=== PATIENT | male | born 1945 | race Caucasian/White ===

== ENCOUNTER 2018-02-15 19:36 | Inpatient (IN) | payer MEDICARE, BC ==
[2018-02-15] MEDS ORDERED: Sodium Chloride 0.9% 1,000 ML IV ONE (20:12)
[2018-02-15] MEDS ORDERED: Sodium Chloride 0.9% 10 ML Syringe FLUSH PRN (20:12)
[2018-02-15] MEDS ORDERED: HYDROmorphone 0.5 MG/0.5 ML SYRINGE IVPUSH ONE ×3 (20:15→23:51)
[2018-02-15] MEDS ORDERED: Ondansetron 4 MG/2 ML SDV IVPUSH ONE (20:15)
--- NOTE | 2018-02-15 20:28 | EDM.PDOC ---
ED HPI GENERAL MEDICAL PROBLEM - General Chief Complaint: Genitourinary Problem Stated Complaint: BLOOD IN URINE Time Seen by Provider: 02/15/18 20:01 Source of Information: Reports: Patient History Limitations: Reports: No Limitations - History of Present Illness INITIAL COMMENTS - FREE TEXT/NARRATIVE: 72-year-old male presents for evaluation and treatment of gross hematuria. Reportedly the patient has had a suprapubic catheter for the last 35 years. This was recently removed due to chronic infections. (Patient has had 7 infections with Pseudomonas infections.) Removal occurred about 2 months ago. For last 2 months he has had a regular Donovan catheter in place. Today they remove the Donovan catheter and began to attempt to start self cathetering. States that they remove this morning. He did not have much urine output this morning with the self cathetering. They only got a small amount urine. They attempted later in the afternoon and could still not give much urine. He had been drinking plenty of fluids. By this time he was started feel pressure in the suprapubic area. His is an RN and placed a regular Donovan catheter. This occurred around 1529. Since then he has had 2 full leg bags, over 2000 male , of gross hematuria. Many clots present. He states the pressure is since been relieved since they replaced the catheter but he now is experiencing suprapubic pain. Reports associated symptoms of chills and weakness. No fevers, vomiting or back pain. Reports nausea but his states that he frequently gets nauseous and he has prescriptions for Zofran and Phenergan. Primary care provider here [place] is Wandy Vásquez. Patient has been Dr. Diaz in [facility]. They returned from [place] only Thursday. He plans to establish with a local urologist. Abdomen Pain Score (Numeric/FACES): 6 - Related Data Allergies Allergy/AdvReac Type Severity Reaction Status Date / Time latex Allergy Rash Verified 02/15/18 19:48 povidone-iodine Allergy Rash Verified 02/15/18 19:48 [From Betadine] soap [From Betadine] Allergy Rash Verified 02/15/18 19:48 Home Meds: Home Meds Calcium Carb & Citrate/Vit D3 [Calcium + D3 ER Tablet] 1 each PO DAILY 02/17/14 [History] Losartan [Cozaar] 25 mg PO DAILY 06/13/14 [History] Multivitamin [Multi-Vitamin Daily] 1 each PO DAILY 02/17/14 [History] traZODone 75 mg PO BEDTIME 02/17/14 [History] Bisacodyl 10 mg PO DAILY PRN 01/29/16 [History] Cholecalciferol (Vitamin D3) [Vitamin D3] 2,000 unit PO DAILY 01/29/16 [History] Clotrimazole [Lotrimin AF 1% Crm] 1 applic TP BID 01/29/16 [History] Docusate Sodium [Stool Softener] 200 mg PO BID PRN 01/29/16 [History] Furosemide [Lasix] 20 mg PO DAILY 01/29/16 [History] Levothyroxine 112 mcg PO ACBREAKFAST 01/29/16 [History] Menthol/Camphor [Sarna Anti-Itch Lotion] 1 applic TP ASDIRECTED PRN 01/29/16 [ History] Potassium Chloride 10 meq PO DAILY 01/29/16 [History] Sennosides/Docusate Sodium [Senna-Docusate Sodium] 1 each PO BID 01/29/16 [ History] Simethicone [Gas-X] 80 mg PO QID PRN 01/29/16 [History] amLODIPine [Norvasc] 10 mg PO DAILY 01/29/16 [History] atorvaSTATin [Lipitor] 20 mg PO BEDTIME 01/29/16 [History] traMADol [Ultram] 50 mg PO Q4H PRN 01/29/16 [History] Acetaminophen/HYDROcodone [Mcclure 325-5 MG] 1 tab PO Q4H PRN #20 tablet 02/02/16 [Rx] Ferrous Gluconate 325 mg PO TID #90 tablet 02/02/16 [Rx] Magnesium Citrate [Citrate of Magnesia] 200 ml PO ONETIME PRN #10 bottle [Rx] Ascorbate Calcium [Vitamin C] 500 mg PO DAILY 02/15/18 [History] Cyclobenzaprine [Flexeril] 20 mg PO BEDTIME 02/15/18 [History] D [place] 02/15/18 [History] Hydrocodone/Acetaminophen [Hydrocodon-Acetaminophen 5-325] 2 tab PO Q4HR PRN 07/25 [History] Pantoprazole [ProTONIX] 40 mg PO BID 02/15/18 [History] Sucralfate [Carafate] 1 gm PO TID 02/15/18 [History] Past Medical History Cardiovascular History: Reports: Hypertension Other Cardiovascular History: HTN Gastrointestinal History: Reports: Chronic Constipation, Fecal Incontinence Genitourinary History: Reports: UTI, Recurrent, Other (See Below) Other Genitourinary History: pseudamonas infections Musculoskeletal History: Reports: Amputation Neurological History: Reports: Other (See Below) Other Neuro History: Paraplegia Hematologic History: Reports: Anemia Dermatologic History: Reports: Decubitus Ulcer - Infectious Disease History Infectious Disease History: Reports: MRSA - Past Surgical History Male Surgical History: Reports: Suprapubic Catheter Placement Neurological Surgical History: Reports: Spinal Fusion Musculoskeletal Surgical History: Reports: Shoulder Replacement Dermatological Surgical History: Reports: Other (See Below) Social & Family History - Family History Family Medical History: Noncontributory - Tobacco Use Smoking Status *Q: Never Smoker - Caffeine Use Caffeine Use: Reports: Coffee - Recreational Drug Use Recreational Drug Use: No ED ROS GENERAL - Review of Systems Review Of Systems: See Below Constitutional: Reports: Malaise, Weakness. Denies: Fever, Chills GI/Abdominal: Reports: Nausea (chronic). Denies: Vomiting : Reports: Dysuria, Hematuria Musculoskeletal: Denies: Back Pain ED EXAM, RENAL/ - Physical Exam Exam: See Below Exam Limited By: No Limitations General Appearance: Alert, WD/WN, No Apparent Distress Respiratory/Chest: No Respiratory Distress, Lungs Clear, Normal Breath Sounds Cardiovascular: Normal Peripheral Pulses, Regular Rate, Rhythm, No Murmur GI/Abdominal: Soft, Non-Tender, Other (hypoactive bowel sounds) (Male) Exam: Other (donovan cathater in place with bag full of bright red blood with multiple clots) Neurological: Alert, Oriented, Normal Cognition Psychiatric: Normal Affect, Normal Mood Skin Exam: Warm, Dry, Normal Color Course - Vital Signs Last Recorded V/S: Last Vital Signs Temp 98.6 F 02/15/18 19:41 Pulse 103 H 02/15/18 19:41 Resp 18 02/15/18 19:41 BP 148/87 H 02/15/18 19:41 Pulse Ox 95 02/15/18 19:41 - Orders/Labs/Meds Orders: Active Orders 24 hr Category Date Time Status Patient Status [ADT] Routine ADT 02/15/18 23:38 Active Bladder Irrigation [RC] ASDIRECTED Care 02/15/18 20:16 Active Insert Donovan Catheter [Insert Urinary Catheter] [OM.PC] Care 02/15/18 23:00 Ordered Q24H Peripheral IV Care [RC] . DIRECTED Care 02/15/18 20:13 Active Urinary Catheter Assessment [RC] ASDIRECTED Care 02/15/18 22:58 Active CULTURE BLOOD [BC] Stat Lab 02/15/18 20:30 Received CULTURE BLOOD [BC] Stat Lab 02/15/18 20:40 Received CULTURE URINE [RM] Stat Lab 02/15/18 21:00 Ordered UA W/MICROSCOPIC [URIN] Stat Lab 02/15/18 21:00 Ordered Simethicone Med 02/15/18 22:00 Active 80 mg PO QIDACANDBED Sodium Chloride 0.9% [Saline Flush] Med 02/15/18 20:12 Active 10 ml FLUSH ASDIRECTED PRN Blood Culture x2 Reflex Set [OM.PC] Stat Oth 02/15/18 20:12 Ordered Peripheral IV Insertion Adult [OM.PC] Routine Oth 02/15/18 20:12 Ordered Medication Orders Simethicone (Simethicone) 80 mg PO QIDACANDBED MADAN Last Admin: 02/15/18 21:55 Dose: 80 mg Sodium Chloride (Saline Flush) 10 ml FLUSH ASDIRECTED PRN PRN Reason: Keep Vein Open Last Admin: 02/15/18 21:06 Dose: 10 ml Labs: Laboratory Tests 02/15/18 02/15/18 02/15/18 Range/Units 20:30 20:30 20:30 WBC 12.41 H (4.23-9.07) K/mm3 RBC 4.17 L (4.63-6.08) M/mm3 Hgb 10.1 L (13.7-17.5) gm/L Hct 31.9 L (40.1-51.0) % MCV 76.5 L (79.0-92.2) fl MCH 24.2 L (25.7-32.2) pg MCHC 31.7 L (32.2-35.5) g/dl RDW Std Deviation 57.0 H (35.1-43.9) fL Plt Count 764 H (163-337) K/mm3 MPV 8.5 L (9.4-12.3) fl Neutrophils % (Manual) 73 H (40-60) % Band Neutrophils % 0 (0-10) % Lymphocytes % (Manual) 20 (20-40) % Atypical Lymphs % 0 % Monocytes % (Manual) 5 (2-10) % Eosinophils % (Manual) 1 (0.8-7.0) % Basophils % (Manual) 1 (0.2-1.2) Platelet Estimate Increased Plt Morphology Comment Normal Hypochromasia 1+ slight Poikilocytosis 4+ Microcytosis 1+ slight Target Cells 1+ slight [place] Cells 1+ slight Acanthocytes (Spur) 1+ slight RBC Morph Comment Not Reportable Sodium 141 (136-145) mEq/L Potassium 4.0 (3.5-5.1) mEq/L Chloride 103 (98-107) mEq/L Carbon Dioxide 25 (21-32) mEq/L Anion Gap 17.0 H (5-15) BUN 16 (7-18) mg/dL Creatinine 1.2 (0.7-1.3) mg/dL Est Cr Clr Drug Dosing 48.54 mL/min Estimated GFR (MDRD) 60 (>60) mL/min BUN/Creatinine Ratio 13.3 L (14-18) Glucose 108 (83-115) mg/dL Lactic Acid 1.0 (0.4-2.0) mmol/L Calcium 9.6 (8.5-10.1) mg/dL Total Bilirubin 0.3 (0.2-1.0) mg/dL AST 18 (15-37) U/L ALT 27 (16-63) U/L Alkaline Phosphatase 109 (46-116) U/L C-Reactive Protein 4.4 H* (<1.0) mg/dL Total Protein 7.4 (6.4-8.2) g/dl Albumin 3.5 (3.4-5.0) g/dl Globulin 3.9 gm/dL Albumin/Globulin Ratio 0.9 L (1-2) Urine Color (Yellow) Urine Appearance (Clear) Urine pH (5.0-8.0) Ur Specific [place] (1.005-1.030) Urine Protein (Negative) Urine Glucose (UA) (Negative) Urine Ketones (Negative) Urine Occult Blood (Negative) Urine Nitrite (Negative) Urine Bilirubin (Negative) Urine Urobilinogen (0.2-1.0) Ur Leukocyte Esterase (Negative) Urine RBC (0-5) /hpf Urine WBC (0-5) /hpf Ur Epithelial Cells (0-5) /hpf Urine Bacteria (FEW) /hpf Urine Mucus (FEW) /hpf 02/15/18 Range/Units 21:00 WBC (4.23-9.07) K/mm3 RBC (4.63-6.08) M/mm3 Hgb (13.7-17.5) gm/L Hct (40.1-51.0) % MCV (79.0-92.2) fl MCH (25.7-32.2) pg MCHC (32.2-35.5) g/dl RDW Std Deviation (35.1-43.9) fL Plt Count (163-337) K/mm3 MPV (9.4-12.3) fl Neutrophils % (Manual) (40-60) % Band Neutrophils % (0-10) % Lymphocytes % (Manual) (20-40) % Atypical Lymphs % % Monocytes % (Manual) (2-10) % Eosinophils % (Manual) (0.8-7.0) % Basophils % (Manual) (0.2-1.2) Platelet Estimate Plt Morphology Comment Hypochromasia Poikilocytosis Microcytosis Target Cells [place] Cells Acanthocytes (Spur) RBC Morph Comment Sodium (136-145) mEq/L Potassium (3.5-5.1) mEq/L Chloride (98-107) mEq/L Carbon Dioxide (21-32) mEq/L Anion Gap (5-15) BUN (7-18) mg/dL Creatinine (0.7-1.3) mg/dL Est Cr Clr Drug Dosing mL/min Estimated GFR (MDRD) (>60) mL/min BUN/Creatinine Ratio (14-18) Glucose (83-115) mg/dL Lactic Acid (0.4-2.0) mmol/L Calcium (8.5-10.1) mg/dL Total Bilirubin (0.2-1.0) mg/dL AST (15-37) U/L ALT (16-63) U/L Alkaline Phosphatase (46-116) U/L C-Reactive Protein (<1.0) mg/dL Total Protein (6.4-8.2) g/dl Albumin (3.4-5.0) g/dl Globulin gm/dL Albumin/Globulin Ratio (1-2) Urine Color Red H (Yellow) Urine Appearance Cloudy H (Clear) Urine pH 8.5 H (5.0-8.0) Ur Specific [place] 1.025 (1.005-1.030) Urine Protein 3+ H (Negative) Urine Glucose (UA) Negative (Negative) Urine Ketones Trace H (Negative) Urine Occult Blood 3+ H (Negative) Urine Nitrite Positive H (Negative) Urine Bilirubin 2+ H (Negative) Urine Urobilinogen 1.0 (0.2-1.0) Ur Leukocyte Esterase Trace H (Negative) Urine RBC Too numerous to cnt H (0-5) /hpf Urine WBC 10-20 H (0-5) /hpf Ur Epithelial Cells 0-5 (0-5) /hpf Urine Bacteria Not seen (FEW) /hpf Urine Mucus Not seen (FEW) /hpf Meds: Medications Generic Name Dose Route Start Last Admin Trade Name Freq PRN Reason Stop Dose Admin Simethicone 80 mg 02/15/18 22:00 02/15/18 21:55 Simethicone PO 80 mg QIDACANDBED MADAN Administration Sodium Chloride 10 ml 02/15/18 20:12 02/15/18 21:06 Saline Flush FLUSH 10 ml ASDIRECTED PRN Administration Keep Vein Open Discontinued Medications Generic Name Dose Route Start Last Admin Trade Name Freq PRN Reason Stop Dose Admin Hydromorphone HCl 0.5 mg 02/15/18 20:15 02/15/18 21:06 Dilaudid IVPUSH 02/15/18 20:16 0.5 mg ONETIME ONE Administration Hydromorphone HCl 0.5 mg 02/15/18 21:40 02/15/18 21:55 Dilaudid IVPUSH 02/15/18 21:41 0.5 mg ONETIME ONE Administration Hydromorphone HCl 1 mg 02/15/18 23:51 Dilaudid IVPUSH 02/15/18 23:52 ONETIME ONE Sodium Chloride 1,000 mls @ 999 mls/hr 02/15/18 20:12 02/15/18 21:08 Normal Saline IV 02/15/18 21:12 999 mls/hr ONETIME ONE Administration Cefepime HCl 2 gm/ Premix 50 mls @ 100 mls/hr 02/15/18 22:22 02/15/18 22:38 IV 02/15/18 22:51 100 mls/hr ONETIME ONE Administration Ondansetron HCl 4 mg 02/15/18 20:15 02/15/18 21:06 Zofran IVPUSH 02/15/18 20:16 4 mg ONETIME ONE Administration Simethicone 80 mg 02/15/18 23:47 Simethicone PO 02/15/18 23:48 ONETIME ONE - Re-Assessments/Exams Free Text/Narrative Re-Assessment/Exam: 02/15/18 23:50 The patient's labs have been come back. His urine is positive for nitrites. Urine has been sent for culture. His white blood cell count is elevated at 12, CRP elevated at 4.4. Lactic acid is within normal limits at 1. Blood cultures have also been sent. Ordered cefepime 2 g IV. Per the patient's he has had resistance to Levaquin and has not done well on ciprofloxacin in the past. Nursing staff attempted to irrigate his bladder. Got about 200-250 mils in the bladder without any return. Patient did not tolerate this very well. The decision was then made to switch out his catheter so we could do continuous bladder irrigation. Initially nursing staff was able to get a large clot out around the catheter through his penis with slow return. Patient has only had bright red blood since coming to the ER. Discussed disposition with the patient and his . I do feel he needs to be admitted to the hospital. Due to concerns over not having urology here we initially talked to [facility] in [place]. I talked to Dr. Amador, urologist [employer]. She recommended imaging to ensure that the catheter was in place. She states as long as we have good return and she feels he can be managed here. She states if his urine does not clear and hemoglobin continues to drop we could transfer him at another time but at this point she did not feel that there is any further intervention that [facility] could offer. I discussed this with the patient and his . I discussed the case with Dr. Champion, hospitalist He agrees to the admission. Dr. Pope and I presented to the bedside with an ultrasound. Confirmed bladder placement with bedside ultrasound. Informed the patient and his that he'll be staying in [place]. They are in agreement and understanding. Departure - Departure Time of Disposition: 23:57 Disposition: Admitted As Inpatient 67 Condition: Fair Clinical Impression: UTI, Urinary tract infectious disease, Hematuria - Discharge Information Referrals: Alaina Vásquez NP [Primary Care Provider] - Forms: ED Department Discharge Additional Instructions: Patient to be admitted to med/surg with tele for UTI and hematuria; need for continuous bladder irrigation. - My Orders Last 24 Hours: My Active Orders 02/15/18 20:12 Sodium Chloride 0.9% [Saline Flush] 10 ml FLUSH ASDIRECTED PRN Blood Culture x2 Reflex Set [OM.PC] Stat Peripheral IV Insertion Adult [OM.PC] Routine 02/15/18 20:13 Peripheral IV Care [RC] . DIRECTED 02/15/18 20:16 Bladder Irrigation [RC] ASDIRECTED 02/15/18 20:30 CULTURE BLOOD [BC] Stat 02/15/18 20:40 CULTURE BLOOD [BC] Stat 02/15/18 21:00 CULTURE URINE [RM] Stat UA W/MICROSCOPIC [URIN] Stat 02/15/18 22:00 Simethicone 80 mg PO QIDACANDBED 02/15/18 22:58 Urinary Catheter Assessment [RC] ASDIRECTED 02/15/18 23:00 Insert Donovan Catheter [Insert Urinary Catheter] [OM.PC] Q24H 02/15/18 23:38 Patient Status [ADT] Routine - Assessment/Plan Last 24 Hours: My Active Orders 02/15/18 20:12 Sodium Chloride 0.9% [Saline Flush] 10 ml FLUSH ASDIRECTED PRN Blood Culture x2 Reflex Set [OM.PC] Stat Peripheral IV Insertion Adult [OM.PC] Routine 02/15/18 20:13 Peripheral IV Care [RC] . DIRECTED 02/15/18 20:16 Bladder Irrigation [RC] ASDIRECTED 02/15/18 20:30 CULTURE BLOOD [BC] Stat 02/15/18 20:40 CULTURE BLOOD [BC] Stat 02/15/18 21:00 CULTURE URINE [RM] Stat UA W/MICROSCOPIC [URIN] Stat 02/15/18 22:00 Simethicone 80 mg PO QIDACANDBED 02/15/18 22:58 Urinary Catheter Assessment [RC] ASDIRECTED 02/15/18 23:00 Insert Donovan Catheter [Insert Urinary Catheter] [OM.PC] Q24H 02/15/18 23:38 Patient Status [ADT] Routine
[2018-02-15] MEDS ORDERED: Simethicone 80 MG Tab.Chew PO SCH (22:00)
[2018-02-15] MEDS ORDERED: Cefepime 2 GM in Premix Bag 1 BAG IV ONE (22:22)
[2018-02-15] MEDS ORDERED: Simethicone 80 MG Tab.Chew PO ONE (23:47)
[2018-02-16] MEDS ORDERED: Simethicone 80 MG Tab.Chew PO PRN (00:43)
[2018-02-16] MEDS ORDERED: Docusate Sodium 100 MG Cap PO PRN (00:43)
[2018-02-16] MEDS ORDERED: Non-Formulary Medication 1 Each (Potassium Chloride [Potassium Chloride] 10 MEQ) PO PRN (00:43)
[2018-02-16] MEDS ORDERED: Acetaminophen/HYDROcodone 325-5 MG Tab PO PRN ×2 (00:43→00:47)
[2018-02-16] MEDS ORDERED: Furosemide 20 MG Tab PO PRN (00:43)
[2018-02-16] MEDS ORDERED: LORazepam 2 MG/ML SDV IVPUSH PRN (00:46)
[2018-02-16] MEDS ORDERED: Metoprolol Tartrate 5 MG/5 ML SDV IVPUSH PRN (00:46)
[2018-02-16] MEDS ORDERED: hydrALAZINE 20 MG/ML SDV IVPUSH PRN (00:46)
[2018-02-16] MEDS ORDERED: Ondansetron 4 MG/2 ML SDV IV PRN (00:47)
[2018-02-16] MEDS ORDERED: Bisacodyl 5 MG Tab PO PRN (00:47)
[2018-02-16] MEDS ORDERED: LORazepam 2 MG/ML SDV IV PRN (00:47)
[2018-02-16] MEDS ORDERED: Albuterol/Ipratropium 3.0-0.5 MG/3 ML Neb Soln NEB PRN (00:47)
[2018-02-16] MEDS ORDERED: Promethazine 12.5 MG in Sodium Chloride 0.9% 50 ML IV PRN (00:47)
[2018-02-16] MEDS ORDERED: Acetaminophen 325 MG Tab PO PRN (00:47)
[2018-02-16] MEDS ORDERED: Polyethylene Glycol 3350 Powder 17 GM Packet PO PRN (00:47)
[2018-02-16] MEDS ORDERED: Temazepam 7.5 MG Cap PO PRN (00:47)
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
[2018-02-16] MEDS ORDERED: Cyclobenzaprine 10 MG Tab PO SCH ×2 (02:00→21:00)
[2018-02-16] MEDS: HYDROmorphone 0.5 MG/0.5 ML SYRINGE IVPUSH PRN ×2 (03:08→05:00)
[2018-02-16] MEDS ORDERED: HYDROmorphone 0.5 MG/0.5 ML SYRINGE IVPUSH ONE (05:35)
[2018-02-16] MEDS ORDERED: fentaNYL 25 MCG/HR Transdermal Patch TRDERM SCH (05:45)
[2018-02-16] MEDS ORDERED: Trospium 20 MG Tab PO SCH (06:00)
[2018-02-16] MEDS ORDERED: Levothyroxine 112 MCG Tab PO SCH (06:00)
[2018-02-16] MEDS ORDERED: Pantoprazole 40 MG Tab.CR PO SCH (06:00)
--- NOTE | 2018-02-16 06:31 | PCM.SN ---
- Free Text/Narrative Note: I received a call from Leandra [facility] Night Charge Nurse, informing me that patient urine flow has completely stop flowing. She states, at about midnight his urine was really good but at 1:30 AM it started to slow down. At that time, only 50 ml of urine output was obtained. With the small amount of urine output, they then proceeded to change his donovan catheter to a similar size--22 dominican. The procedure yielded a fairly good amount of fluid return but mostly pure blood and some clots. According to her, the donovan insertion was easy and no resistance was experienced as it went through the prostate region. However at about 2:30 this morning, they were not able to get anything at all. During that time, the patient had become distended, felt full and complained of more pain. They thought the catheter may have clotted off again so they tried to replace it but this time they were unsuccessful even after the balloon was deflated or cut out. The staff also tried multiple procedural adjustments to the catheter but all efforts yielded nothing. As a result, I proceeded immediately to the hospital to see and examine the patient. When I got to him, he was so uncomfortable so I ordered narcotic pain medication right away to relieve his acute urinary retention from catheter obstruction. I reached out to the on-call surgeon Dr. Simon for input but he could not offer me anything. I then personally talked to Dr. Pope in ED and discussed the case with him but he was reluctant to perform suprapubic catheterization unless recommended by Urology. So, I went back to see the patient and re-examined him. I ordered additional narcotic medications: Fentanyl Patch and IV Dilaudid to further relieve his acute discomfort and suffering. Thereafter, I immediately made calls to [place] to get a hold of Dr. Amador who was initially consulted while he was seen in the emergency department. And after waiting for a good amount of time, the recovery coordinator was able to reach the specialist. Although I did not speak directly with her, she okayed the transfer and deferred transfer acceptance to the hospitalist team. But just like Dr. Amador, I did not directly speak with the accepting physician but he was made aware of the history of present illness of this patient. He did however agreed to accept transfer of care from sd. Patient was then shipped to [place]. He will be under the care of Dr. Royal, hospitalist attending. Prior to transfer, the patient and his were informed about going to [place] and both expressed no concerns or disagreements about the transfer plan.
[2018-02-16] MEDS ORDERED: Scopolamine 1.5 MG Transdermal Patch TRDERM ONE (06:39)
[2018-02-16] MEDS ORDERED: Sucralfate 1 GM Tab PO SCH (07:00)
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
[2018-02-16] MEDS ORDERED: Metoprolol Tartrate 5 MG/5 ML SDV IVPUSH ONE (07:09)
[2018-02-16 07:24] VITALS: BP 108/69
[2018-02-16] MEDS ORDERED: Magnesium Oxide 400 MG Tab PO ONE (08:30)
[2018-02-16] MEDS ORDERED: Ascorbic Acid 500 MG Tab PO SCH (09:00)
[2018-02-16] MEDS ORDERED: Levofloxacin/Dextrose 5%-Water 500 MG in Premix Bag 1 BAG IV SCH (09:00)
[2018-02-16] MEDS ORDERED: Losartan 25 MG Tab PO SCH (09:00)
[2018-02-16] MEDS ORDERED: Saccharomyces Boulardii (Probiotic) 250 MG Cap PO SCH (09:00)
[2018-02-16] MEDS ORDERED: Multivitamins,Therapeutic Tab PO SCH (09:00)
[2018-02-16] MEDS ORDERED: Cholecalciferol (Vitamin D3) 1,000 Unit Tab PO SCH (09:00)
[2018-02-16] MEDS ORDERED: Simvastatin 20 MG Tab PO SCH (09:00)
[2018-02-16] MEDS ORDERED: Tamsulosin 0.4 MG Cap.ER PO SCH (09:00)
[2018-02-19] MEDS ORDERED: [UNRECOGNIZED DRUG - REMARK] TRDERM ONE (06:45)
== END 2018-02-16 07:15 | DRG 699 ==
LOC: JD.ED 19:36 → JD.MS 23:55
PROVIDERS: ADMIT Internal Medicine; ATTEND Internal Medicine
DX: T83.098A Other mechanical complication of other urinary catheter, initial encounter (principal); R31.0 Gross hematuria; G82.20 Paraplegia, unspecified; Y84.6 Urinary catheterization as the cause of abnormal reaction of the patient, or of later complication, without mention of misadventure at the time of the procedure; V89.2XXS Person injured in unspecified motor-vehicle accident, traffic, sequela; R33.9 Retention of urine, unspecified; I10 Essential (primary) hypertension; E78.5 Hyperlipidemia, unspecified; E03.9 Hypothyroidism, unspecified; K59.09 Other constipation; D64.9 Anemia, unspecified; N31.9 Neuromuscular dysfunction of bladder, unspecified; N39.498 Other specified urinary incontinence; Z87.440 Personal history of urinary (tract) infections; Z91.040 Latex allergy status; Z79.899 Other long term (current) drug therapy; Z86.14 Personal history of Methicillin resistant Staphylococcus aureus infection; Z98.1 Arthrodesis status; Z87.11 Personal history of peptic ulcer disease
CPT/HCPCS: 36415; 51700; 80053; 81001; 83605; 85007; 85027; 86140; 87040 ×2; 87086; 96361; 96365; 96375; 96376; 99284; A9270; J0692; J1170 ×2; J2405; J7040; J7050; 51703; 80048; 82306; 83735; 84439; 84443; 85025; 85610; J2060; J3490

== ENCOUNTER 2018-05-25 19:23 | Emergency (ER) | payer MEDICARE, BC ==
[2018-05-25 19:38] VITALS: BP 200/110
[2018-05-25] MEDS ORDERED: HYDROmorphone 1 MG/ML Syringe IM ONE (19:46)
[2018-05-25] MEDS ORDERED: Ondansetron 4 MG Tab.DIS PO ONE (19:47)
--- NOTE | 2018-05-25 20:02 | EDM.PDOC ---
ED HPI GENERAL MEDICAL PROBLEM - General Chief Complaint: Genitourinary Problem Stated Complaint: POSS UTI Time Seen by Provider: 05/25/18 19:39 Source of Information: Reports: Patient History Limitations: Reports: No Limitations - History of Present Illness INITIAL COMMENTS - FREE TEXT/NARRATIVE: The patient presents with a possible UTI. He has a suprapubic cath. He has had that for 35 years. He had it changed out 2 weeks ago. This evening he developed some burning in his bladder, chills, fever, nausea and a headache. These are all signs of a UTI for him. He has no chest pain or shortness of breath. Onset: Sudden Duration: Hour(s): Location: Reports: Other (Bladder) Quality: Reports: Burning Severity: Moderate Improves with: Reports: None Worsens with: Reports: None Associated Symptoms: Reports: Fever/Chills, Headaches, Nausea/Vomiting. Denies : Chest Pain, Shortness of Breath Lower Abdominal Pain Score (Numeric/FACES): 6 - Related Data Allergies Allergy/AdvReac Type Severity Reaction Status Date / Time latex Allergy Rash Verified 05/25/18 19:36 povidone-iodine Allergy Rash Verified 05/25/18 19:36 [From Betadine] soap [From Betadine] Allergy Rash Verified 05/25/18 19:36 Home Meds: Home Meds Losartan [Cozaar] 25 mg PO DAILY 02/17/14 [History] Multivitamin [Multi-Vitamin Daily] 2 each PO DAILY 02/17/14 [History] traZODone 200 mg PO BEDTIME 02/17/14 [History] Cholecalciferol (Vitamin D3) [Vitamin D3] 2,000 unit PO DAILY 01/29/16 [History] Docusate Sodium [Stool Softener] 200 mg PO BID PRN 01/29/16 [History] Furosemide [Lasix] 20 mg PO DAILY PRN 01/29/16 [History] Levothyroxine 112 mcg PO ACBREAKFAST 01/29/16 [History] Potassium Chloride 10 meq PO DAILY PRN 01/29/16 [History] Sennosides/Docusate Sodium [Senna-Docusate Sodium] 2 each PO BID PRN 01/29/16 [ History] Simethicone [Gas-X] 80 mg PO QID PRN 01/29/16 [History] atorvaSTATin [Lipitor] 20 mg PO DAILY 01/29/16 [History] Ascorbate Calcium [Vitamin C] 500 mg PO DAILY 02/15/18 [History] Cyclobenzaprine [Flexeril] 20 mg PO BEDTIME 02/15/18 [History] D [place] 02/15/18 [History] Hydrocodone/Acetaminophen [Hydrocodon-Acetaminophen 5-325] 2 tab PO Q4HR PRN 07/25 [History] Pantoprazole [ProTONIX] 40 mg PO BID 02/15/18 [History] Sucralfate [Carafate] 1 gm PO TID 02/15/18 [History] Ciprofloxacin HCl [Cipro] 500 mg PO BID #14 tablet 05/25/18 [Rx] HYDROmorphone [Dilaudid] 2 mg PO Q4H PRN #15 tab 05/25/18 [Rx] Past Medical History Cardiovascular History: Reports: Hypertension Other Cardiovascular History: HTN Gastrointestinal History: Reports: Chronic Constipation, Fecal Incontinence Genitourinary History: Reports: UTI, Recurrent, Other (See Below) Other Genitourinary History: pseudamonas infections Musculoskeletal History: Reports: Amputation Neurological History: Reports: Other (See Below) Other Neuro History: Paraplegia Hematologic History: Reports: Anemia Dermatologic History: Reports: Decubitus Ulcer Other Dermatologic History: healed decub to his coccyx, uses a mepilex for protection since the area is so erasto and the skin is thin. - Infectious Disease History Infectious Disease History: Reports: MRSA - Past Surgical History Male Surgical History: Reports: Suprapubic Catheter Placement Neurological Surgical History: Reports: Spinal Fusion Musculoskeletal Surgical History: Reports: Shoulder Replacement Dermatological Surgical History: Reports: Other (See Below) Social & Family History - Family History Family Medical History: Noncontributory - Tobacco Use Smoking Status *Q: Never Smoker - Caffeine Use Caffeine Use: Reports: Coffee - Recreational Drug Use Recreational Drug Use: No ED ROS GENERAL - Review of Systems Review Of Systems: See Below Constitutional: Reports: Fever, Chills HEENT: Reports: No Symptoms Respiratory: Reports: No Symptoms Cardiovascular: Reports: No Symptoms Endocrine: Reports: No Symptoms GI/Abdominal: Reports: Other (Bladder) : Reports: Other (bladder) ED EXAM, RENAL/ - Physical Exam Exam: See Below Exam Limited By: No Limitations General Appearance: Alert, No Apparent Distress Ears: Normal External Exam Nose: Normal Inspection Head: Atraumatic, Normocephalic Neck: Normal Inspection Respiratory/Chest: No Respiratory Distress, Lungs Clear, Normal Breath Sounds Cardiovascular: Regular Rate, Rhythm, No Edema, No Murmur GI/Abdominal: Soft, Non-Tender, No Organomegaly, No Mass Neurological: Alert Course - Vital Signs Last Recorded V/S: Last Vital Signs Temp 98.4 F 05/25/18 19:34 Pulse 74 05/25/18 19:34 Resp 18 05/25/18 19:34 BP 200/110 H 05/25/18 19:34 Pulse Ox 99 05/25/18 19:34 - Orders/Labs/Meds Orders: Active Orders 24 hr Category Date Time Status CULTURE URINE [RM] Stat Lab 05/25/18 20:24 Ordered Labs: Laboratory Tests 05/25/18 Range/Units 19:30 Urine Color Yellow (Yellow) Urine Appearance Slt cloudy H (Clear) Urine pH 7.5 (5.0-8.0) Ur Specific [place] 1.015 (1.005-1.030) Urine Protein Negative (Negative) Urine Glucose (UA) Negative (Negative) Urine Ketones Negative (Negative) Urine Occult Blood Trace-intact H (Negative) Urine Nitrite Negative (Negative) Urine Bilirubin Negative (Negative) Urine Urobilinogen 0.2 (0.2-1.0) Ur Leukocyte Esterase 2+ H (Negative) Urine RBC 0-5 (0-5) /hpf Urine WBC 50-75 H (0-5) /hpf Ur Epithelial Cells 20-30 H (0-5) /hpf Urine Bacteria Few (FEW) /hpf Urine Mucus Not seen (FEW) /hpf Meds: Medications Discontinued Medications Generic Name Dose Route Start Last Admin Trade Name Freq PRN Reason Stop Dose Admin Hydromorphone HCl 1 mg 05/25/18 19:46 05/25/18 20:00 Dilaudid IM 05/25/18 19:47 1 mg ONETIME ONE Administration Ondansetron HCl 4 mg 05/25/18 19:47 05/25/18 20:00 Zofran Odt PO 05/25/18 19:48 4 mg ONETIME ONE Administration - Re-Assessments/Exams Free Text/Narrative Re-Assessment/Exam: 05/25/18 20:02 I ordered a UA, zofran 4mg by mouth and dilaudid 1mg IM. 05/25/18 20:25 He feels better. His UA shows a UTI. His prior cultures were growing out pseudomonus at one time. It was susceptible to cipro. I will get him on that and some dilaudid for pain. I have also ordered a urine culture. Departure - Departure Time of Disposition: 20:30 Disposition: Home, Self-Care 01 Condition: Good Clinical Impression: UTI, Urinary tract infectious disease - Discharge Information *PRESCRIPTION DRUG MONITORING PROGRAM REVIEWED*: No *COPY OF PRESCRIPTION DRUG MONITORING REPORT IN PATIENT GAVI: No Prescriptions: Ciprofloxacin HCl [Cipro] 500 mg PO BID #14 tablet HYDROmorphone [Dilaudid] 2 mg PO Q4H PRN #15 tab PRN Reason: Pain Referrals: Alaina Vásquez [employer] DISTRIBUTION ENGINEER [Primary Care Provider] - Forms: ED Department Discharge Additional Instructions: Take the cipro 2 times per day for 7 days. Take the dilaudid 1 pill every 4 hours as needed for pain. Drink plenty of water. Please return if you are worse. - My Orders Last 24 Hours: My Active Orders 05/25/18 20:24 CULTURE URINE [RM] Stat - Assessment/Plan Last 24 Hours: My Active Orders 05/25/18 20:24 CULTURE URINE [RM] Stat
== END 2018-05-25 20:36 | disposition home or self-care (01) ==
LOC: JD.ED 19:23
DX: N39.0 Urinary tract infection, site not specified (principal); I10 Essential (primary) hypertension; Z91.040 Latex allergy status; Z79.899 Other long term (current) drug therapy
CPT/HCPCS: 81001; 87086; 96372; 99283; A9270; J1170; 87088; 87186

== ENCOUNTER 2018-08-21 21:24 | Emergency (ER) | payer MEDICARE, BC ==
[2018-08-21] MEDS ORDERED: Ondansetron 4 MG Tab.DIS PO ONE (21:38)
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
[2018-08-21 23:56] VITALS: BP 170/89
== END 2018-08-21 23:45 | disposition home or self-care (01) ==
LOC: JD.ED 21:24
DX: T83.010A Breakdown (mechanical) of cystostomy catheter, initial encounter (principal); E78.00 Pure hypercholesterolemia, unspecified; I10 Essential (primary) hypertension; Z79.899 Other long term (current) drug therapy; E03.9 Hypothyroidism, unspecified; Z91.040 Latex allergy status; Z88.8 Allergy status to other drugs, medicaments and biological substances
CPT/HCPCS: 51702; 99284; A9270; 99283

== ENCOUNTER 2019-06-06 19:47 | Inpatient (IN) | payer MEDICARE, BC ==
[2019-06-06] MEDS ORDERED: Metoclopramide 10 MG/2 ML SDV IVPUSH ONE (20:06)
[2019-06-06] MEDS ORDERED: Acetaminophen 325 MG Tab PO STA (20:09)
[2019-06-06] MEDS ORDERED: Meropenem 1 GM SDV IVPUSH ONE (20:10)
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
[2019-06-06] MEDS ORDERED: Dextrose 5%-0.9% NaCl 1,000 ML IV SCH (20:15)
[2019-06-06] MEDS ORDERED: HYDROmorphone 1 MG/ML Syringe IVPUSH ONE (20:26)
[2019-06-06] MEDS ORDERED: HYDROmorphone 0.5 MG/0.5 ML Syringe IVPUSH ONE (21:53)
[2019-06-06] MEDS ORDERED: Magnesium Sulfate/Water 2 GM in Premix Bag 1 BAG IV ONE (21:53)
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
[2019-06-06] MEDS ORDERED: Melatonin 3 MG Tab PO PRN (23:11)
[2019-06-07] MEDS: oxyCODONE 5 MG Tab PO PRN ×5 (01:00→21:11)
[2019-06-07] MEDS: Acetaminophen 325 MG Tab PO PRN ×3 (01:01→12:57)
[2019-06-07] MEDS: Dextrose 5%-0.9% NaCl 1,000 ML IV SCH ×2 (01:08→10:16)
[2019-06-07] MEDS: Cyclobenzaprine 10 MG Tab PO SCH ×2 (02:05→21:11)
[2019-06-07] MEDS: traZODone 50 MG Tab PO SCH ×2 (02:05→21:10)
[2019-06-07] MEDS: HYDROmorphone 0.5 MG/0.5 ML Syringe IVPUSH PRN ×3 (02:50→12:58)
[2019-06-07] MEDS ORDERED: Meropenem 1 GM SDV IVPUSH SCH (04:00)
[2019-06-07] MEDS ORDERED: Meropenem 1 GM in Sodium Chloride 0.9% 100 ML IV SCH (04:00)
[2019-06-07] MEDS ORDERED: Meropenem Premix 500 MG in Premix Bag 1 BAG IV SCH ×2 (05:00→05:30)
[2019-06-07] MEDS: Ondansetron 4 MG/2 ML SDV IV PRN (06:11)
--- NOTE | 2019-06-07 08:58 | CR ---
Chest: Portable view of the chest was obtained. Comparison: Prior chest x-ray of 06/26/16. Parenchymal density is seen within the left mid to lower lung. This appears stable from prior exam and is therefore felt to be incidental. Old left-sided rib fractures are noted. Right shoulder prosthesis is noted. Scoliosis fixation rods are also present. Heart size is slightly enlarged with left ventricular configuration. Left-sided infusion port is seen. Old deformity from healed left clavicle fracture is present. Tortuous thoracic aorta is noted. No acute parenchymal change is appreciated. Impression: 1. Multiple findings as noted above. Nothing acute is appreciated on portable chest x-ray. Diagnostic code #2
[2019-06-07] MEDS: Meropenem Premix 500 MG in Premix Bag 1 BAG IV SCH ×3 (10:11→23:46)
[2019-06-07] MEDS: Enoxaparin 40 MG/0.4 ML Syringe SUBCUT SCH (10:15)
[2019-06-07] MEDS ORDERED: Sucralfate 1 GM Tab PO PRN (11:19)
[2019-06-07] MEDS ORDERED: Ondansetron 4 MG Tab.DIS PO PRN (11:19)
[2019-06-07] MEDS: Levothyroxine 100 MCG Tab PO SCH (12:56)
[2019-06-07] MEDS: Phenazopyridine 95 MG Tab PO SCH ×2 (12:56→18:36)
[2019-06-07] MEDS: Pantoprazole 40 MG Tab.CR PO SCH (12:57)
[2019-06-07] MEDS: Losartan 25 MG Tab PO SCH (12:57)
[2019-06-07] MEDS ORDERED: HYDROmorphone 1 MG/ML Syringe IVPUSH PRN (13:03)
[2019-06-07] MEDS ORDERED: Dextrose 5%-0.9% NaCl 1,000 ML IV SCH (13:30)
--- NOTE | 2019-06-07 14:31 | PCM.PN ---
- General Info Date of Service: 06/07/19 Admission Dx/Problem (Free Text): Admission Diagnosis/Problem Admission Diagnosis/Problem Urosepsis Subjective Update: Patient continues to have significant pain radiating to his groin. Oxycodone 10 mg every 4 hours and Dilaudid 0.5 milligrams are not helping his pain. Functional Status: Denies: Pain Controlled - Review of Systems General: Reports: No Symptoms HEENT: Reports: No Symptoms Pulmonary: Reports: No Symptoms Cardiovascular: Reports: No Symptoms Gastrointestinal: Reports: Abdominal Pain Genitourinary: Reports: Pain Musculoskeletal: Reports: Leg Pain - Patient Data Vitals - Most Recent: Last Vital Signs Temp 97.2 F 06/07/19 06:09 Pulse 96 06/07/19 06:09 Resp 18 06/07/19 06:09 BP 138/67 06/07/19 12:57 Pulse Ox 98 06/07/19 06:09 Weight - Most Recent: 135 lb I&O - Last 24 Hours: Intake & Output 06/06/19 06/07/19 06/07/19 22:59 06:59 14:59 Intake Total 1711 0 Output Total 1500 Balance 211 0 Lab Results Last 24 Hours: Laboratory Results - last 24 hr 06/06/19 06/06/19 06/06/19 Range/Units 20:40 20:40 20:40 WBC 28.91 H (4.23-9.07) K/mm3 RBC 3.62 L (4.63-6.08) M/mm3 Hgb 9.2 L (13.7-17.5) gm/dl Hct 28.5 L (40.1-51.0) % MCV 78.7 L D (79.0-92.2) fl MCH 25.4 L (25.7-32.2) pg MCHC 32.3 (32.2-35.5) g/dl RDW Std Deviation 47.3 H (35.1-43.9) fL Plt Count 587 H D (163-337) K/mm3 MPV 8.7 L (9.4-12.3) fl Neut % (Auto) (34.0-67.9) % Lymph % (Auto) (21.8-53.1) % [place] % (Auto) (5.3-12.2) % Eos % (Auto) (0.8-7.0) Baso % (Auto) (0.1-1.2) % Neut # (Auto) (1.78-5.38) K/mm3 Lymph # (Auto) (1.32-3.57) K/mm3 [place] # (Auto) (0.30-0.82) K/mm3 Eos # (Auto) (0.04-0.54) K/mm3 Baso # (Auto) (0.01-0.08) K/mm3 Neutrophils % (Manual) 73 H (40-60) % Band Neutrophils % 1 (0-10) % Lymphocytes % (Manual) 15 L (20-40) % Atypical Lymphs % 0 % Monocytes % (Manual) 10 (2-10) % Eosinophils % (Manual) 1 (0.8-7.0) % Basophils % (Manual) 0 L (0.2-1.2) Manual Slide Review Platelet Estimate Increased Plt Morphology Comment See note Poikilocytosis 1+ slight Anisocytosis 1+ slight Microcytosis 1+ slight [place] Cells Few RBC Morph Comment Not Reportable ESR 12 (0-15) mm/hr Sodium 137 (136-145) mEq/L Potassium 3.9 (3.5-5.1) mEq/L Chloride 104 (98-107) mEq/L Carbon Dioxide 25 (21-32) mEq/L Anion Gap 11.9 (5-15) BUN 18 (7-18) mg/dL Creatinine 1.0 (0.7-1.3) mg/dL Est Cr Clr Drug Dosing 57.83 mL/min Estimated GFR (MDRD) > 60 (>60) mL/min BUN/Creatinine Ratio 18.0 (14-18) Glucose 114 (83-115) mg/dL Lactic Acid (0.4-2.0) mmol/L Calcium 9.2 (8.5-10.1) mg/dL Magnesium 1.6 L (1.8-2.4) mg/dl Total Bilirubin 0.3 (0.2-1.0) mg/dL AST 27 (15-37) U/L ALT 42 (16-63) U/L Alkaline Phosphatase 110 (46-116) U/L C-Reactive Protein 9.0 H* (<1.0) mg/dL NT-Pro-B Natriuret Pep (0-125) pg/mL Total Protein 6.8 (6.4-8.2) g/dl Albumin 3.5 (3.4-5.0) g/dl Globulin 3.3 gm/dL Albumin/Globulin Ratio 1.1 (1-2) Urine Color (Yellow) Urine Appearance (Clear) Urine pH (5.0-8.0) Ur Specific [place] (1.005-1.030) Urine Protein (Negative) Urine Glucose (UA) (Negative) Urine Ketones (Negative) Urine Occult Blood (Negative) Urine Nitrite (Negative) Urine Bilirubin (Negative) Urine Urobilinogen (0.2-1.0) Ur Leukocyte Esterase (Negative) Urine RBC (0-5) /hpf Urine WBC (0-5) /hpf Ur Epithelial Cells (0-5) /hpf Urine Bacteria (FEW) /hpf Urine Mucus (FEW) /hpf 06/06/19 06/06/19 06/06/19 Range/Units 20:40 20:40 20:55 WBC (4.23-9.07) K/mm3 RBC (4.63-6.08) M/mm3 Hgb (13.7-17.5) gm/dl Hct (40.1-51.0) % MCV (79.0-92.2) fl MCH (25.7-32.2) pg MCHC (32.2-35.5) g/dl RDW Std Deviation (35.1-43.9) fL Plt Count (163-337) K/mm3 MPV (9.4-12.3) fl Neut % (Auto) (34.0-67.9) % Lymph % (Auto) (21.8-53.1) % [place] % (Auto) (5.3-12.2) % Eos % (Auto) (0.8-7.0) Baso % (Auto) (0.1-1.2) % Neut # (Auto) (1.78-5.38) K/mm3 Lymph # (Auto) (1.32-3.57) K/mm3 [place] # (Auto) (0.30-0.82) K/mm3 Eos # (Auto) (0.04-0.54) K/mm3 Baso # (Auto) (0.01-0.08) K/mm3 Neutrophils % (Manual) (40-60) % Band Neutrophils % (0-10) % Lymphocytes % (Manual) (20-40) % Atypical Lymphs % % Monocytes % (Manual) (2-10) % Eosinophils % (Manual) (0.8-7.0) % Basophils % (Manual) (0.2-1.2) Manual Slide Review Platelet Estimate Plt Morphology Comment Poikilocytosis Anisocytosis Microcytosis [place] Cells RBC Morph Comment ESR (0-15) mm/hr Sodium (136-145) mEq/L Potassium (3.5-5.1) mEq/L Chloride (98-107) mEq/L Carbon Dioxide (21-32) mEq/L Anion Gap (5-15) BUN (7-18) mg/dL Creatinine (0.7-1.3) mg/dL Est Cr Clr Drug Dosing mL/min Estimated GFR (MDRD) (>60) mL/min BUN/Creatinine Ratio (14-18) Glucose (83-115) mg/dL Lactic Acid 1.2 (0.4-2.0) mmol/L Calcium (8.5-10.1) mg/dL Magnesium (1.8-2.4) mg/dl Total Bilirubin (0.2-1.0) mg/dL AST (15-37) U/L ALT (16-63) U/L Alkaline Phosphatase (46-116) U/L C-Reactive Protein (<1.0) mg/dL NT-Pro-B Natriuret Pep 115 (0-125) pg/mL Total Protein (6.4-8.2) g/dl Albumin (3.4-5.0) g/dl Globulin gm/dL Albumin/Globulin Ratio (1-2) Urine Color Light yellow (Yellow) Urine Appearance Clear (Clear) Urine pH 7.5 (5.0-8.0) Ur Specific [place] 1.015 (1.005-1.030) Urine Protein Negative (Negative) Urine Glucose (UA) Negative (Negative) Urine Ketones Negative (Negative) Urine Occult Blood Negative (Negative) Urine Nitrite Negative (Negative) Urine Bilirubin Negative (Negative) Urine Urobilinogen 0.2 (0.2-1.0) Ur Leukocyte Esterase 2+ H (Negative) Urine RBC 0-5 (0-5) /hpf Urine WBC 20-30 H (0-5) /hpf Ur Epithelial Cells 0-5 (0-5) /hpf Urine Bacteria Few (FEW) /hpf Urine Mucus Not seen (FEW) /hpf 06/07/19 06/07/19 Range/Units 05:19 05:19 WBC 30.15 H (4.23-9.07) K/mm3 RBC 3.65 L (4.63-6.08) M/mm3 Hgb 9.1 L (13.7-17.5) gm/dl Hct 28.9 L (40.1-51.0) % MCV 79.2 (79.0-92.2) fl MCH 24.9 L (25.7-32.2) pg MCHC 31.5 L (32.2-35.5) g/dl RDW Std Deviation 47.7 H (35.1-43.9) fL Plt Count 543 H (163-337) K/mm3 MPV 8.9 L (9.4-12.3) fl Neut % (Auto) 81.2 H (34.0-67.9) % Lymph % (Auto) 9.8 L (21.8-53.1) % [place] % (Auto) 8.4 (5.3-12.2) % Eos % (Auto) 0.4 L (0.8-7.0) Baso % (Auto) 0.2 (0.1-1.2) % Neut # (Auto) 24.50 H (1.78-5.38) K/mm3 Lymph # (Auto) 2.95 (1.32-3.57) K/mm3 [place] # (Auto) 2.53 H (0.30-0.82) K/mm3 Eos # (Auto) 0.11 (0.04-0.54) K/mm3 Baso # (Auto) 0.06 (0.01-0.08) K/mm3 Neutrophils % (Manual) (40-60) % Band Neutrophils % (0-10) % Lymphocytes % (Manual) (20-40) % Atypical Lymphs % % Monocytes % (Manual) (2-10) % Eosinophils % (Manual) (0.8-7.0) % Basophils % (Manual) (0.2-1.2) Manual Slide Review Abnormal smear Platelet Estimate Plt Morphology Comment Poikilocytosis Anisocytosis Microcytosis [place] Cells RBC Morph Comment ESR (0-15) mm/hr Sodium 139 (136-145) mEq/L Potassium 4.0 (3.5-5.1) mEq/L Chloride 106 (98-107) mEq/L Carbon Dioxide 25 (21-32) mEq/L Anion Gap 12.0 (5-15) BUN 16 (7-18) mg/dL Creatinine 0.9 (0.7-1.3) mg/dL Est Cr Clr Drug Dosing 63.40 mL/min Estimated GFR (MDRD) > 60 (>60) mL/min BUN/Creatinine Ratio 17.8 (14-18) Glucose 103 (83-115) mg/dL Lactic Acid (0.4-2.0) mmol/L Calcium 8.8 (8.5-10.1) mg/dL Magnesium 2.2 (1.8-2.4) mg/dl Total Bilirubin 0.4 (0.2-1.0) mg/dL AST 32 (15-37) U/L ALT 43 (16-63) U/L Alkaline Phosphatase 107 (46-116) U/L C-Reactive Protein 15.8 H* (<1.0) mg/dL NT-Pro-B Natriuret Pep (0-125) pg/mL Total Protein 6.4 (6.4-8.2) g/dl Albumin 3.1 L (3.4-5.0) g/dl Globulin 3.3 gm/dL Albumin/Globulin Ratio 0.9 L (1-2) Urine Color (Yellow) Urine Appearance (Clear) Urine pH (5.0-8.0) Ur Specific [place] (1.005-1.030) Urine Protein (Negative) Urine Glucose (UA) (Negative) Urine Ketones (Negative) Urine Occult Blood (Negative) Urine Nitrite (Negative) Urine Bilirubin (Negative) Urine Urobilinogen (0.2-1.0) Ur Leukocyte Esterase (Negative) Urine RBC (0-5) /hpf Urine WBC (0-5) /hpf Ur Epithelial Cells (0-5) /hpf Urine Bacteria (FEW) /hpf Urine Mucus (FEW) /hpf Med Orders - Current: Current Medications Acetaminophen (Tylenol) 650 mg PO Q4H PRN PRN Reason: Pain (Mild 1-3)/fever Last Admin: 06/07/19 12:57 Dose: 650 mg Bisacodyl (Dulcolax) 10 mg PO DAILY PRN PRN Reason: Constipation Cyclobenzaprine HCl (Flexeril) 10 mg PO BEDTIME [facility] Last Admin: 06/07/19 02:05 Dose: 10 mg Enoxaparin Sodium (Lovenox) 40 mg SUBCUT DAILY [facility] Last Admin: 06/07/19 10:15 Dose: 40 mg Hydromorphone HCl (Dilaudid) 1 mg IVPUSH Q2H PRN PRN Reason: Pain (severe 7-10) Vancomycin HCl 1 gm/ Sodium (Chloride) 250 mls @ 250 mls/hr IV Q12H [facility] Last Admin: 06/07/19 12:56 Dose: 250 mls/hr Meropenem/Sodium Chloride 500 (mg/ Premix) 50 mls @ 100 mls/hr IV Q6H [facility] Last Admin: 06/07/19 10:11 Dose: 100 mls/hr Dextrose/Sodium Chloride (Dextrose 5%-Normal Saline) 1,000 mls @ 50 mls/hr IV ASDIRECTED [facility] Levothyroxine Sodium (Synthroid) 100 mcg PO ACBREAKFAST [facility] Last Admin: 06/07/19 12:56 Dose: 100 mcg Losartan Potassium (Cozaar) 50 mg PO DAILY [facility] Last Admin: 06/07/19 12:57 Dose: 50 mg Melatonin (Melatonin) 9 mg PO BEDTIME PRN PRN Reason: Insomnia Ondansetron HCl (Zofran) 4 mg IV Q4H PRN PRN Reason: Nausea/Vomiting Last Admin: 06/07/19 06:11 Dose: 4 mg Ondansetron HCl (Zofran Odt) 4 mg PO Q6H PRN PRN Reason: Nausea\vomiting Oxycodone HCl (Oxycodone) 10 mg PO Q4H PRN PRN Reason: Pain (severe 7-10) Last Admin: 06/07/19 10:15 Dose: 10 mg Pantoprazole Sodium (Protonix) 40 mg PO DAILY [facility] Last Admin: 06/07/19 12:57 Dose: 40 mg Phenazopyridine HCl (Urinary Pain Relief) 95 mg PO TIDPC [facility] Last Admin: 06/07/19 12:56 Dose: 95 mg Senna/Docusate Sodium (Senna Plus) 2 tab PO BEDTIME PRN PRN Reason: Constipation Simvastatin (Zocor) 20 mg PO BEDTIME [facility] Sucralfate (Carafate) 1 gm PO ASDIRECTED PRN PRN Reason: stomach pain Trazodone HCl (Trazodone) 100 mg PO BEDTIME [facility] Last Admin: 06/07/19 02:05 Dose: 100 mg Vancomycin HCl (Pharmacy To Dose - Vancomycin) 0 dose .XX ASDIRECTED PRN PRN Reason: RX TO DOSE VANCOMYCIN Discontinued Medications Acetaminophen (Tylenol) 975 mg PO NOW STA Stop: 06/06/19 20:10 Last Admin: 06/06/19 20:43 Dose: 975 mg Hydromorphone HCl (Dilaudid) 1 mg IVPUSH ONETIME ONE Stop: 06/06/19 20:27 Last Admin: 06/06/19 20:43 Dose: 1 mg Hydromorphone HCl (Dilaudid) 0.5 mg IVPUSH ONETIME ONE Stop: 06/06/19 21:54 Last Admin: 06/06/19 22:21 Dose: 0.5 mg Hydromorphone HCl (Dilaudid) 0.5 mg IVPUSH Q2H PRN PRN Reason: Pain (severe 7-10) Last Admin: 06/07/19 12:58 Dose: 0.5 mg Dextrose/Sodium Chloride (Dextrose 5%-Normal Saline) 1,000 mls @ 250 mls/hr IV ASDIRECTED [facility] Last Admin: 06/06/19 20:44 Dose: 250 mls/hr Magnesium Sulfate 2 gm/ Premix 50 mls @ 25 mls/hr IV ONETIME ONE Stop: 06/06/19 23:52 Last Admin: 06/06/19 22:22 Dose: 25 mls/hr Vancomycin HCl 1.25 gm/ Sodium (Chloride) 250 mls @ 250 mls/hr IV ONETIME ONE Stop: 06/07/19 00:59 Last Admin: 06/07/19 01:06 Dose: 250 mls/hr Dextrose/Sodium Chloride (Dextrose 5%-Normal Saline) 1,000 mls @ 125 mls/hr IV ASDIRECTED [facility] Last Admin: 06/07/19 10:16 Dose: 125 mls/hr Meropenem 1 gm/ Sodium (Chloride) 100 mls @ 200 mls/hr IV Q8H [facility] Last Admin: 06/07/19 07:41 Dose: Not Given Meropenem/Sodium Chloride 500 (mg/ Premix) 50 mls @ 100 mls/hr IV Q8H [facility] Last Admin: 06/07/19 05:46 Dose: 100 mls/hr Meropenem/Sodium Chloride 500 (mg/ Premix) 50 mls @ 100 mls/hr IV Q8H [facility] Last Admin: 06/07/19 05:47 Dose: 100 mls/hr Meropenem (Merrem) 1 gm IVPUSH ONETIME ONE Stop: 06/06/19 20:11 Last Admin: 06/06/19 20:41 Dose: 1 gm Meropenem (Merrem) 1 gm IVPUSH Q8H [facility] Metoclopramide HCl (Reglan) 10 mg IVPUSH ONETIME ONE Stop: 06/06/19 20:07 Last Admin: 06/06/19 20:41 Dose: 10 mg Oxycodone HCl (Oxycodone) 5 mg PO Q4H PRN PRN Reason: Pain (moderate 4-6) Last Admin: 06/07/19 06:09 Dose: 5 mg - Exam General: Alert, Oriented HEENT: Pupils Equal, Pupils Reactive, EOMI, Mucous Membr. Moist/[place] Neck: Supple Lungs: Clear to Auscultation, Normal Respiratory Effort Cardiovascular: Regular Rate, Regular Rhythm GI/Abdominal Exam: Normal Bowel Sounds, Soft, Non-Tender, No Organomegaly, No Distention, No Abnormal Bruit, No Mass Extremities: Normal Inspection Skin: Warm, Dry, Intact Psy/Mental Status: Alert, Normal Affect, Normal Mood - Problem List Review Problem List Initiated/Reviewed/Updated: Yes - My Orders Last 24 Hours: My Active Orders 06/06/19 23:08 Oxygen Therapy [RC] PRN VTE/DVT Education [RC] DAILY Vital Signs [RC] Q4HR Acetaminophen [Tylenol] 650 mg PO Q4H PRN Ondansetron [Zofran] 4 mg IV Q4H PRN Resuscitation Status Routine 06/06/19 23:11 Melatonin 9 mg PO BEDTIME PRN 06/06/19 23:15 Pharmacy to Dose - Vancomycin 0 dose .XX ASDIRECTED PRN 06/07/19 01:23 Cyclobenzaprine [Flexeril] 10 mg PO BEDTIME 10/01/19 01:24 traZODone 100 mg PO BEDTIME 06/07/19 09:00 Enoxaparin [Lovenox] 40 mg SUBCUT DAILY 06/07/19 09:54 oxyCODONE 10 mg PO Q4H PRN 06/07/19 11:00 Meropenem Premix [Meropenem] 500 mg Premix Bag 1 bag IV Q6H 06/07/19 11:19 Ondansetron [Zofran ODT] 4 mg PO Q6H PRN Sucralfate [Carafate] 1 gm PO ASDIRECTED PRN 06/07/19 11:30 Levothyroxine [Synthroid] 100 mcg PO ACBREAKFAST Losartan [Cozaar] 50 mg PO DAILY Pantoprazole [ProTONIX] 40 mg PO DAILY 06/07/19 12:00 Vancomycin 1 gm Sodium Chloride 0.9% [Normal Saline] 250 ml IV Q12H 06/07/19 12:37 PT Evaluation and Treatment [CONS] Routine 06/07/19 12:38 OT Evaluation and Treatment [CONS] Routine 06/07/19 12:46 Patient Status [ADT] Routine 06/07/19 13:00 Phenazopyridine [Urinary Pain Relief] 95 mg PO TIDPC 06/07/19 13:03 HYDROmorphone [Dilaudid] 1 mg IVPUSH Q2H PRN 06/07/19 13:30 Dextrose 5%-0.9% NaCl [Dextrose 5%-Normal Saline] 1,000 ml IV ASDIRECTED 06/07/19 21:00 Docusate Sodium/Sennosides [Senna Plus] 2 tab PO BEDTIME PRN Simvastatin [Zocor] 20 mg PO BEDTIME 06/07/19 Breakfast Regular Diet [DIET] 06/08/19 05:11 C-REACTIVE PROTEIN [CHEM] AM CBC WITH AUTO DIFF [HEME] AM COMPREHENSIVE METABOLIC PN,CMP [CHEM] AM MAGNESIUM [CHEM] AM 06/09/19 05:11 C-REACTIVE PROTEIN [CHEM] AM CBC WITH AUTO DIFF [HEME] AM COMPREHENSIVE METABOLIC PN,CMP [CHEM] AM MAGNESIUM [CHEM] AM 06/09/19 09:00 Bisacodyl [Dulcolax] 10 mg PO DAILY PRN 06/10/19 05:11 C-REACTIVE PROTEIN [CHEM] AM CBC WITH AUTO DIFF [HEME] AM COMPREHENSIVE METABOLIC PN,CMP [CHEM] AM MAGNESIUM [CHEM] AM - Plan Plan:: Assessment * 73-year-old patient with paraplegia at T12-L1 with history of multiple urinary tract infections and indwelling suprapubic catheter * Complicated UTI with indwelling suprapubic catheter * WBC 29-->30, CRP 9.0-->15.8, urine WBC 20-30 * Recently on Cefdinir for 10 days * History of hypertension, hyperlipidemia, hypothyroidism, insomnia, chronic pain Plan * Admit to the medical floor * Meropenem and vancomycin * Blood cultures done in ER * Urine cultures * Daily CBC, CMP, C-reactive protein, and magnesium * Pain management with both oral and IV narcotics. * Titrate IV fluids her by mouth intake. * Reconcile home meds * VTE prophylaxis with Lovenox * Code status: Full code * Length of stay likely 2-3 days.
[2019-06-07] MEDS ORDERED: Bisacodyl 5 MG Tab PO PRN (18:30)
[2019-06-07] MEDS: Simvastatin 20 MG Tab PO SCH (21:11)
[2019-06-08] MEDS: Acetaminophen 325 MG Tab PO PRN ×4 (01:17→21:01)
[2019-06-08] MEDS: oxyCODONE 5 MG Tab PO PRN ×4 (01:17→21:01)
[2019-06-08] MEDS: Levothyroxine 100 MCG Tab PO SCH (05:29)
[2019-06-08] MEDS: Meropenem Premix 500 MG in Premix Bag 1 BAG IV SCH ×4 (05:29→23:34)
[2019-06-08] MEDS: Losartan 25 MG Tab PO SCH (09:58)
[2019-06-08] MEDS: Pantoprazole 40 MG Tab.CR PO SCH (09:58)
[2019-06-08] MEDS: Enoxaparin 40 MG/0.4 ML Syringe SUBCUT SCH (09:58)
[2019-06-08] MEDS: Phenazopyridine 95 MG Tab PO SCH ×3 (09:58→18:19)
[2019-06-08] MEDS: Ondansetron 4 MG/2 ML SDV IV PRN (15:25)
--- NOTE | 2019-06-08 16:37 | PCM.PN ---
- Patient Data Vitals - Most Recent: Last Vital Signs Temp 37.2 C 06/08/19 15:32 Pulse 94 06/08/19 15:32 Resp 14 06/08/19 15:32 BP 158/85 H 06/08/19 15:32 Pulse Ox 97 06/08/19 15:32 Weight - Most Recent: 62.596 kg I&O - Last 24 Hours: Intake & Output 06/08/19 06/08/19 06/08/19 06:59 14:59 22:59 Intake Total 910 Output Total 2150 Balance -1240 Lab Results Last 24 Hours: Laboratory Results - last 24 hr 06/08/19 06/08/19 06/08/19 Range/Units 05:28 05:28 11:15 WBC 26.83 H (4.23-9.07) K/mm3 RBC 3.78 L (4.63-6.08) M/mm3 Hgb 9.5 L (13.7-17.5) gm/dl Hct 29.8 L (40.1-51.0) % MCV 78.8 L (79.0-92.2) fl MCH 25.1 L (25.7-32.2) pg MCHC 31.9 L (32.2-35.5) g/dl RDW Std Deviation 47.7 H (35.1-43.9) fL Plt Count 542 H (163-337) K/mm3 MPV 8.9 L (9.4-12.3) fl Neut % (Auto) 78.1 H (34.0-67.9) % Lymph % (Auto) 13.3 L (21.8-53.1) % [place] % (Auto) 7.4 (5.3-12.2) % Eos % (Auto) 0.9 (0.8-7.0) Baso % (Auto) 0.3 (0.1-1.2) % Neut # (Auto) 20.93 H (1.78-5.38) K/mm3 Lymph # (Auto) 3.58 H (1.32-3.57) K/mm3 [place] # (Auto) 1.99 H (0.30-0.82) K/mm3 Eos # (Auto) 0.25 (0.04-0.54) K/mm3 Baso # (Auto) 0.08 (0.01-0.08) K/mm3 Manual Slide Review Abnormal smear Sodium 137 (136-145) mEq/L Potassium 4.2 (3.5-5.1) mEq/L Chloride 104 (98-107) mEq/L Carbon Dioxide 23 (21-32) mEq/L Anion Gap 14.2 (5-15) BUN 11 (7-18) mg/dL Creatinine 0.8 (0.7-1.3) mg/dL Est Cr Clr Drug Dosing 73.90 mL/min Estimated GFR (MDRD) > 60 (>60) mL/min BUN/Creatinine Ratio 13.8 L (14-18) Glucose 89 (83-115) mg/dL Calcium 9.4 (8.5-10.1) mg/dL Magnesium 1.8 (1.8-2.4) mg/dl Total Bilirubin 0.4 (0.2-1.0) mg/dL AST 30 (15-37) U/L ALT 50 (16-63) U/L Alkaline Phosphatase 133 H (46-116) U/L C-Reactive Protein 23.4 H* (<1.0) mg/dL Total Protein 6.9 (6.4-8.2) g/dl Albumin 3.1 L (3.4-5.0) g/dl Globulin 3.8 gm/dL Albumin/Globulin Ratio 0.8 L (1-2) Vancomycin Trough 17.4 (10.0-20.0) [place] Results Last 24 Hours: Microbiology 06/06/19 20:55 Urine Culture - Preliminary Urine, [place] Cath ([place]) Gram Negative Rods Gram Negative Rods#2 Gram Positive Cocci 06/06/19 20:40 Aerobic Blood Culture - Preliminary Blood - Venous NO GROWTH AFTER 1 DAY Anaerobic Blood Culture - Preliminary NO GROWTH AFTER 1 DAY 06/06/19 20:35 Aerobic Blood Culture - Preliminary Blood - Venous - Lab Draw NO GROWTH AFTER 1 DAY Anaerobic Blood Culture - Preliminary NO GROWTH AFTER 1 DAY Med Orders - Current: Current Medications Acetaminophen (Tylenol) 650 mg PO Q4H PRN PRN Reason: Pain (Mild 1-3)/fever Last Admin: 06/08/19 15:27 Dose: 650 mg Bisacodyl (Dulcolax) 10 mg PO DAILY PRN PRN Reason: Constipation Last Admin: 06/08/19 05:30 Dose: 10 mg Cyclobenzaprine HCl (Flexeril) 10 mg PO BEDTIME [facility] Last Admin: 06/07/19 21:11 Dose: 10 mg Enoxaparin Sodium (Lovenox) 40 mg SUBCUT DAILY [facility] Last Admin: 06/08/19 09:58 Dose: 40 mg Hydromorphone HCl (Dilaudid) 1 mg IVPUSH Q2H PRN PRN Reason: Pain (severe 7-10) Last Admin: 06/07/19 18:36 Dose: 1 mg Vancomycin HCl 1 gm/ Sodium (Chloride) 250 mls @ 250 mls/hr IV Q12H [facility] Last Admin: 06/08/19 12:55 Dose: 250 mls/hr Meropenem/Sodium Chloride 500 (mg/ Premix) 50 mls @ 100 mls/hr IV Q6H [facility] Last Admin: 06/08/19 12:16 Dose: 100 mls/hr Levothyroxine Sodium (Synthroid) 100 mcg PO ACBREAKFAST [facility] Last Admin: 06/08/19 05:29 Dose: 100 mcg Losartan Potassium (Cozaar) 50 mg PO DAILY [facility] Last Admin: 06/08/19 09:58 Dose: 50 mg Melatonin (Melatonin) 9 mg PO BEDTIME PRN PRN Reason: Insomnia Ondansetron HCl (Zofran) 4 mg IV Q4H PRN PRN Reason: Nausea/Vomiting Last Admin: 06/08/19 15:25 Dose: 4 mg Ondansetron HCl (Zofran Odt) 4 mg PO Q6H PRN PRN Reason: Nausea\vomiting Oxycodone HCl (Oxycodone) 10 mg PO Q4H PRN PRN Reason: Pain (severe 7-10) Last Admin: 06/08/19 15:28 Dose: 10 mg Pantoprazole Sodium (Protonix) 40 mg PO DAILY [facility] Last Admin: 06/08/19 09:58 Dose: 40 mg Phenazopyridine HCl (Urinary Pain Relief) 95 mg PO TIDPC [facility] Last Admin: 06/08/19 12:16 Dose: 95 mg Senna/Docusate Sodium (Senna Plus) 2 tab PO BEDTIME PRN PRN Reason: Constipation Last Admin: 06/07/19 18:36 Dose: 2 tab Simvastatin (Zocor) 20 mg PO BEDTIME [facility] Last Admin: 06/07/19 21:11 Dose: 20 mg Sucralfate (Carafate) 1 gm PO ASDIRECTED PRN PRN Reason: stomach pain Trazodone HCl (Trazodone) 100 mg PO BEDTIME [facility] Last Admin: 06/07/19 21:10 Dose: 100 mg Vancomycin HCl (Pharmacy To Dose - Vancomycin) 0 dose .XX ASDIRECTED PRN PRN Reason: RX TO DOSE VANCOMYCIN Discontinued Medications Acetaminophen (Tylenol) 975 mg PO NOW STA Stop: 06/06/19 20:10 Last Admin: 06/06/19 20:43 Dose: 975 mg Hydromorphone HCl (Dilaudid) 1 mg IVPUSH ONETIME ONE Stop: 06/06/19 20:27 Last Admin: 06/06/19 20:43 Dose: 1 mg Hydromorphone HCl (Dilaudid) 0.5 mg IVPUSH ONETIME ONE Stop: 06/06/19 21:54 Last Admin: 06/06/19 22:21 Dose: 0.5 mg Hydromorphone HCl (Dilaudid) 0.5 mg IVPUSH Q2H PRN PRN Reason: Pain (severe 7-10) Last Admin: 06/07/19 12:58 Dose: 0.5 mg Dextrose/Sodium Chloride (Dextrose 5%-Normal Saline) 1,000 mls @ 250 mls/hr IV ASDIRECTTWO [facility] Last Admin: 06/06/19 20:44 Dose: 250 mls/hr Magnesium Sulfate 2 gm/ Premix 50 mls @ 25 mls/hr IV ONETIME ONE Stop: 06/06/19 23:52 Last Admin: 06/06/19 22:22 Dose: 25 mls/hr Vancomycin HCl 1.25 gm/ Sodium (Chloride) 250 mls @ 250 mls/hr IV ONETIME ONE Stop: 06/07/19 00:59 Last Admin: 06/07/19 01:06 Dose: 250 mls/hr Dextrose/Sodium Chloride (Dextrose 5%-Normal Saline) 1,000 mls @ 125 mls/hr IV ASDIRECTED [facility] Last Admin: 06/07/19 10:16 Dose: 125 mls/hr Meropenem 1 gm/ Sodium (Chloride) 100 mls @ 200 mls/hr IV Q8H [facility] Last Admin: 06/07/19 07:41 Dose: Not Given Meropenem/Sodium Chloride 500 (mg/ Premix) 50 mls @ 100 mls/hr IV Q8H [facility] Last Admin: 06/07/19 05:46 Dose: 100 mls/hr Meropenem/Sodium Chloride 500 (mg/ Premix) 50 mls @ 100 mls/hr IV Q8H [facility] Last Admin: 06/07/19 05:47 Dose: 100 mls/hr Dextrose/Sodium Chloride (Dextrose 5%-Normal Saline) 1,000 mls @ 50 mls/hr IV ASDIRECTED [facility] Meropenem (Merrem) 1 gm IVPUSH ONETIME ONE Stop: 06/06/19 20:11 Last Admin: 06/06/19 20:41 Dose: 1 gm Meropenem (Merrem) 1 gm IVPUSH Q8H [facility] Metoclopramide HCl (Reglan) 10 mg IVPUSH ONETIME ONE Stop: 06/06/19 20:07 Last Admin: 06/06/19 20:41 Dose: 10 mg Oxycodone HCl (Oxycodone) 5 mg PO Q4H PRN PRN Reason: Pain (moderate 4-6) Last Admin: 06/07/19 06:09 Dose: 5 mg - My Orders Last 24 Hours: My Active Orders 06/08/19 10:40 Urinary Catheter Assessment [RC] ASDIRECTED 06/08/19 10:45 Insert Lawrence Catheter [Insert Urinary Catheter] [OM.PC] ONETIME 06/08/19 13:30 CULTURE URINE [RM] Routine - Plan Plan:: Assessment * 73-year-old patient with paraplegia at T12-L1 with history of multiple urinary tract infections and indwelling suprapubic catheter * Complicated UTI with indwelling suprapubic catheter * WBC 29-->30, CRP 9.0-->15.8, urine WBC 20-30 * Recently on Cefdinir for 10 days * History of hypertension, hyperlipidemia, hypothyroidism, insomnia, chronic pain Plan * Admit to the medical floor * Meropenem and vancomycin * Blood cultures done in ER * Urine cultures * Daily CBC, CMP, C-reactive protein, and magnesium * Pain management with both oral and IV narcotics. * Titrate IV fluids her by mouth intake. * Reconcile home meds * VTE prophylaxis with Lovenox * Code status: Full code * Length of stay likely 2-3 days.
[2019-06-08] MEDS: Hydrocortisone 1% Crm 30 GM Tube TOP SCH ×2 (19:35→21:04)
[2019-06-08] MEDS ORDERED: Polyethylene Glycol 3350 Powder 17 GM Packet PO ONE (20:00)
[2019-06-08] MEDS: traZODone 50 MG Tab PO SCH (20:59)
[2019-06-08] MEDS: Simvastatin 20 MG Tab PO SCH (21:00)
[2019-06-08] MEDS: Cyclobenzaprine 10 MG Tab PO SCH (21:00)
[2019-06-08] MEDS ORDERED: diphenhydrAMINE 50 MG/ML SDV IVPUSH ONE (23:24)
[2019-06-09] MEDS: Meropenem Premix 500 MG in Premix Bag 1 BAG IV SCH ×4 (04:48→23:13)
[2019-06-09] MEDS: oxyCODONE 5 MG Tab PO PRN ×2 (04:48→18:23)
[2019-06-09] MEDS: Acetaminophen 325 MG Tab PO PRN (04:49)
[2019-06-09] MEDS: Levothyroxine 100 MCG Tab PO SCH (04:59)
[2019-06-09] MEDS ORDERED: diphenhydrAMINE 25 MG Cap PO ONE (09:00)
[2019-06-09] MEDS: Hydrocortisone 1% Crm 30 GM Tube TOP SCH (09:15)
[2019-06-09] MEDS: Pantoprazole 40 MG Tab.CR PO SCH (09:15)
[2019-06-09] MEDS: Losartan 25 MG Tab PO SCH (09:16)
[2019-06-09] MEDS: Phenazopyridine 95 MG Tab PO SCH ×3 (09:16→18:19)
[2019-06-09] MEDS: Enoxaparin 40 MG/0.4 ML Syringe SUBCUT SCH (09:16)
[2019-06-09] MEDS ORDERED: Magnesium Sulfate/Water 4 GM in Premix Bag 1 BAG IV ONE (13:00)
[2019-06-09] MEDS: Hydrocortisone 1% Crm 30 GM Tube TOP PRN ×2 (13:31→18:22)
[2019-06-09] MEDS ORDERED: diphenhydrAMINE 50 MG/ML SDV IVPUSH ONE (16:30)
[2019-06-09] MEDS: Famotidine 20 MG Tab PO SCH (16:32)
[2019-06-09] MEDS ORDERED: Magnesium Hydroxide 400 MG/5 ML Susp 30 ML Cup PO ONE (18:02)
[2019-06-09] MEDS: Ondansetron 4 MG/2 ML SDV IV PRN (20:53)
[2019-06-09] MEDS: traZODone 50 MG Tab PO SCH (20:54)
[2019-06-09] MEDS: Simvastatin 20 MG Tab PO SCH (20:54)
[2019-06-09] MEDS: Cyclobenzaprine 10 MG Tab PO SCH (20:55)
[2019-06-10] MEDS: oxyCODONE 5 MG Tab PO PRN (05:36)
[2019-06-10] MEDS: Famotidine 20 MG Tab PO SCH ×2 (05:36→16:33)
[2019-06-10] MEDS: Meropenem Premix 500 MG in Premix Bag 1 BAG IV SCH ×2 (05:36→12:57)
[2019-06-10] MEDS: Levothyroxine 100 MCG Tab PO SCH (05:36)
[2019-06-10] MEDS: Acetaminophen 325 MG Tab PO PRN (05:37)
[2019-06-10] MEDS: Losartan 25 MG Tab PO SCH (08:54)
[2019-06-10] MEDS: Pantoprazole 40 MG Tab.CR PO SCH (08:58)
[2019-06-10] MEDS: Phenazopyridine 95 MG Tab PO SCH ×2 (08:58→12:57)
[2019-06-10] MEDS: Enoxaparin 40 MG/0.4 ML Syringe SUBCUT SCH (08:59)
[2019-06-10 09:01] VITALS: BP 126/80
[2019-06-10] MEDS ORDERED: Magnesium Citrate Solution 296 ML Bottle PO ONE ×2 (10:25→12:00)
[2019-06-10 10:48] VITALS: PULSE 95
--- NOTE | 2019-06-10 12:16 | PCM.DCSUM1 ---
Discharge Summary - Discharge Data Discharge Disposition: Home, Self-Care 01 Condition: Good - Referral to Home Health Primary Care Physician: Alaina Vásquez NP - Patient Summary/Data Consults: Consultations 06/07/19 12:37 PT Evaluation and Treatment [CONS] Routine 06/07/19 12:38 OT Evaluation and Treatment [CONS] Routine - Patient Instructions Diet: Usual Diet as Tolerated - Discharge Plan *PRESCRIPTION DRUG MONITORING PROGRAM REVIEWED*: No *COPY OF PRESCRIPTION DRUG MONITORING REPORT IN PATIENT GAVI: No Prescriptions/Med Rec: Hydrocortisone [Hydrocortisone 1% Crm] 30 gm TOP Q4H PRN #4 tube PRN Reason: Itching Home Medications: Home Meds Cyclobenzaprine [Flexeril] 10 mg PO BEDTIME 03/08/19 [History] Levothyroxine [Synthroid] 100 mcg PO DAILY 03/08/19 [History] Losartan [Cozaar] 50 mg PO DAILY 03/08/19 [History] Pantoprazole [ProTONIX] 40 mg PO DAILY 03/08/19 [History] atorvaSTATin [Lipitor] 20 mg PO DAILY 03/08/19 [History] Acetaminophen [Tylenol] 650 mg PO Q4H PRN tablet 03/14/19 [Rx] Hydrocodone/Acetaminophen [Hydrocodon-Acetaminophen 5-325] 1 - 2 each PO Q6HR PRN #20 tablet 03/28/19 [Rx] Lactobacillus Combination No.4 [Probiotic] 1 tab PO DAILY 03/28/19 [History] Ondansetron [Zofran ODT] 4 mg PO Q6H PRN #20 tab.dis 03/28/19 [Rx] Bisacodyl [Dulcolax] 10 mg PO ASDIRECTED PRN 06/07/19 [History] Sennosides/Docusate Sodium [Senna Plus 8.6-50 mg Tablet] 2 tab PO ASDIRECTED PRN 06/07/19 [History] Sucralfate [Carafate] 1 gm PO ASDIRECTED PRN 06/07/19 [History] traZODone HCl [Trazodone HCl] 100 mg PO BEDTIME 06/07/19 [History] Hydrocortisone [Hydrocortisone 1% Crm] 30 gm TOP Q4H PRN #4 tube 06/10/19 [Rx] Forms: ED Department Discharge Referrals: Gold,Alaina, NO EXPERIENCE [Primary Care Provider] - (5-7 days) - Patient Data Vitals - Most Recent: Last Vital Signs Temp 36.8 C 06/10/19 08:58 Pulse 95 06/10/19 08:58 Resp 18 06/10/19 08:58 BP 126/80 06/10/19 08:58 Pulse Ox 92 L 06/10/19 08:58 Weight - Most Recent: 60.781 kg I&O - Last 24 hours: Intake & Output 06/09/19 06/10/19 06/10/19 22:59 06:59 14:59 Intake Total 950 550 300 Output Total 1400 1350 Balance -450 -800 300 Lab Results - Last 24 hrs: Laboratory Results - last 24 hr 06/10/19 06/10/19 Range/Units 05:29 05:29 WBC 7.67 (4.23-9.07) K/mm3 RBC 4.00 L (4.63-6.08) M/mm3 Hgb 9.7 L (13.7-17.5) gm/dl Hct 31.4 L (40.1-51.0) % MCV 78.5 L (79.0-92.2) fl MCH 24.3 L (25.7-32.2) pg MCHC 30.9 L (32.2-35.5) g/dl RDW Std Deviation 48.3 H (35.1-43.9) fL Plt Count 606 H (163-337) K/mm3 MPV 9.0 L (9.4-12.3) fl Neut % (Auto) 55.4 (34.0-67.9) % Lymph % (Auto) 26.3 (21.8-53.1) % Hitchcock % (Auto) 13.8 H (5.3-12.2) % Eos % (Auto) 3.8 (0.8-7.0) Baso % (Auto) 0.4 (0.1-1.2) % Neut # (Auto) 4.25 (1.78-5.38) K/mm3 Lymph # (Auto) 2.02 (1.32-3.57) K/mm3 Hitchcock # (Auto) 1.06 H (0.30-0.82) K/mm3 Eos # (Auto) 0.29 (0.04-0.54) K/mm3 Baso # (Auto) 0.03 (0.01-0.08) K/mm3 Manual Slide Review Abnormal smear Sodium 140 (136-145) mEq/L Potassium 4.0 (3.5-5.1) mEq/L Chloride 104 (98-107) mEq/L Carbon Dioxide 28 (21-32) mEq/L Anion Gap 12.0 (5-15) BUN 9 (7-18) mg/dL Creatinine 0.8 (0.7-1.3) mg/dL Est Cr Clr Drug Dosing 71.81 mL/min Estimated GFR (MDRD) > 60 (>60) mL/min BUN/Creatinine Ratio 11.3 L (14-18) Glucose 113 (83-115) mg/dL Calcium 8.9 (8.5-10.1) mg/dL Magnesium 2.3 (1.8-2.4) mg/dl Total Bilirubin 0.2 (0.2-1.0) mg/dL AST 24 (15-37) U/L ALT 40 (16-63) U/L Alkaline Phosphatase 145 H (46-116) U/L C-Reactive Protein 10.8 H* (<1.0) mg/dL Total Protein 6.9 (6.4-8.2) g/dl Albumin 3.0 L (3.4-5.0) g/dl Globulin 3.9 gm/dL Albumin/Globulin Ratio 0.8 L (1-2) ELISABET Results - Last 24 hrs: Microbiology 06/08/19 13:30 Urine Culture - Final Urine, Catheterized NO GROWTH AFTER 2 DAYS 06/06/19 20:40 Aerobic Blood Culture - Preliminary Blood - Venous NO GROWTH AFTER 3 DAYS Anaerobic Blood Culture - Preliminary NO GROWTH AFTER 3 DAYS 06/06/19 20:35 Aerobic Blood Culture - Preliminary Blood - Venous - Lab Draw NO GROWTH AFTER 3 DAYS Anaerobic Blood Culture - Preliminary NO GROWTH AFTER 3 DAYS 06/06/19 20:55 Urine Culture - Final Urine, Lawrence Cath (Indwelling) Citrobacter Farmeri Providencia Rettgeri Enterococcus Faecalis Med Orders - Current: Current Medications Acetaminophen (Tylenol) 650 mg PO Q4H PRN PRN Reason: Pain (Mild 1-3)/fever Last Admin: 06/10/19 05:37 Dose: 650 mg Bisacodyl (Dulcolax) 10 mg PO DAILY PRN PRN Reason: Constipation Last Admin: 06/08/19 05:30 Dose: 10 mg Cyclobenzaprine HCl (Flexeril) 10 mg PO BEDTIME [facility] Last Admin: 06/09/19 20:55 Dose: 10 mg Enoxaparin Sodium (Lovenox) 40 mg SUBCUT DAILY [facility] Last Admin: 06/10/19 08:59 Dose: 40 mg Famotidine (Pepcid) 20 mg PO Q12H [facility] Stop: 06/11/19 04:31 Last Admin: 06/10/19 05:36 Dose: 20 mg Hydrocortisone (Hydrocortisone 1% Crm) 30 gm TOP Q4H PRN PRN Reason: Itching Last Admin: 06/09/19 18:22 Dose: 1 applic Hydromorphone HCl (Dilaudid) 1 mg IVPUSH Q2H PRN PRN Reason: Pain (severe 7-10) Last Admin: 06/07/19 18:36 Dose: 1 mg Meropenem/Sodium Chloride 500 (mg/ Premix) 50 mls @ 100 mls/hr IV Q6H [facility] Last Admin: 06/10/19 05:36 Dose: 100 mls/hr Levothyroxine Sodium (Synthroid) 100 mcg PO ACBREAKFAST [facility] Last Admin: 06/10/19 05:36 Dose: 100 mcg Losartan Potassium (Cozaar) 50 mg PO DAILY [facility] Last Admin: 06/10/19 08:54 Dose: 50 mg Melatonin (Melatonin) 9 mg PO BEDTIME PRN PRN Reason: Insomnia Last Admin: 06/09/19 20:55 Dose: 9 mg Ondansetron HCl (Zofran) 4 mg IV Q4H PRN PRN Reason: Nausea/Vomiting Last Admin: 06/09/19 20:53 Dose: 4 mg Ondansetron HCl (Zofran Odt) 4 mg PO Q6H PRN PRN Reason: Nausea\vomiting Oxycodone HCl (Oxycodone) 10 mg PO Q4H PRN PRN Reason: Pain (severe 7-10) Last Admin: 06/10/19 05:36 Dose: 10 mg Pantoprazole Sodium (Protonix) 40 mg PO DAILY [facility] Last Admin: 06/10/19 08:58 Dose: 40 mg Phenazopyridine HCl (Urinary Pain Relief) 95 mg PO TIDPC [facility] Last Admin: 06/10/19 08:58 Dose: 95 mg Senna/Docusate Sodium (Senna Plus) 2 tab PO BEDTIME PRN PRN Reason: Constipation Last Admin: 06/07/19 18:36 Dose: 2 tab Simvastatin (Zocor) 20 mg PO BEDTIME [facility] Last Admin: 06/09/19 20:54 Dose: 20 mg Sucralfate (Carafate) 1 gm PO ASDIRECTED PRN PRN Reason: stomach pain Last Admin: 06/09/19 13:30 Dose: 1 gm Trazodone HCl (Trazodone) 100 mg PO BEDTIME [facility] Last Admin: 06/09/19 20:54 Dose: 100 mg Discontinued Medications Acetaminophen (Tylenol) 975 mg PO NOW STA Stop: 06/06/19 20:10 Last Admin: 06/06/19 20:43 Dose: 975 mg Diphenhydramine HCl (Benadryl) 25 mg IVPUSH ONETIME ONE Stop: 06/08/19 23:25 Last Admin: 06/08/19 23:35 Dose: 25 mg Diphenhydramine HCl (Benadryl) 25 mg PO ONETIME ONE Stop: 06/09/19 09:01 Last Admin: 06/09/19 09:15 Dose: 25 mg Diphenhydramine HCl (Benadryl) 25 mg IVPUSH ONETIME ONE Stop: 06/09/19 16:31 Last Admin: 06/09/19 16:32 Dose: 25 mg Hydrocortisone (Hydrocortisone 1% Crm) 30 gm TOP BID [facility] Last Admin: 06/09/19 09:15 Dose: 1 applic Hydromorphone HCl (Dilaudid) 1 mg IVPUSH ONETIME ONE Stop: 06/06/19 20:27 Last Admin: 06/06/19 20:43 Dose: 1 mg Hydromorphone HCl (Dilaudid) 0.5 mg IVPUSH ONETIME ONE Stop: 06/06/19 21:54 Last Admin: 06/06/19 22:21 Dose: 0.5 mg Hydromorphone HCl (Dilaudid) 0.5 mg IVPUSH Q2H PRN PRN Reason: Pain (severe 7-10) Last Admin: 06/07/19 12:58 Dose: 0.5 mg Dextrose/Sodium Chloride (Dextrose 5%-Normal Saline) 1,000 mls @ 250 mls/hr IV ASDIRECTED [facility] Last Admin: 06/06/19 20:44 Dose: 250 mls/hr Magnesium Sulfate 2 gm/ Premix 50 mls @ 25 mls/hr IV ONETIME ONE Stop: 06/06/19 23:52 Last Admin: 06/06/19 22:22 Dose: 25 mls/hr Vancomycin HCl 1.25 gm/ Sodium (Chloride) 250 mls @ 250 mls/hr IV ONETIME ONE Stop: 06/07/19 00:59 Last Admin: 06/07/19 01:06 Dose: 250 mls/hr Vancomycin HCl 1 gm/ Sodium (Chloride) 250 mls @ 250 mls/hr IV Q12H [facility] Last Admin: 06/08/19 23:34 Dose: 250 mls/hr Dextrose/Sodium Chloride (Dextrose 5%-Normal Saline) 1,000 mls [facility] 125 [facility] Last Admin: 06/07/19 10:16 Dose: 125 mls/hr Meropenem 1 gm/ Sodium (Chloride) 100 mls @ 200 mls/hr IV Q8H [facility] Last Admin: 06/07/19 07:41 Dose: Not Given Meropenem/Sodium Chloride 500 (mg/ Premix) 50 mls @ 100 mls/hr IV Q8H [facility] Last Admin: 06/07/19 05:46 Dose: 100 mls/hr Meropenem/Sodium Chloride 500 (mg/ Premix) 50 mls @ 100 mls/hr IV Q8H [facility] Last Admin: 06/07/19 05:47 Dose: 100 mls/hr Dextrose/Sodium Chloride (Dextrose 5%-Normal Saline) 1,000 mls @ 50 mls/hr IV ASDIRECTED [facility] Magnesium Sulfate 4 gm/ Premix 50 mls @ 12.5 mls/hr IV ONETIME ONE Stop: 06/09/19 16:59 Last Admin: 06/09/19 13:25 Dose: 12.5 mls/hr Magnesium Citrate (Citrate Of Magnesia) 296 ml PO ONETIME ONE Stop: 06/10/19 12:01 Magnesium Hydroxide (Milk Of Magnesia) 30 ml PO ONETIME ONE Stop: 06/09/19 18:03 Last Admin: 06/09/19 18:20 Dose: 30 ml Meropenem (Merrem) 1 gm IVPUSH ONETIME ONE Stop: 06/06/19 20:11 Last Admin: 06/06/19 20:41 Dose: 1 gm Meropenem (Merrem) 1 gm IVPUSH Q8H [facility] Metoclopramide HCl (Reglan) 10 mg IVPUSH ONETIME ONE Stop: 06/06/19 20:07 Last Admin: 06/06/19 20:41 Dose: 10 mg Oxycodone HCl (Oxycodone) 5 mg PO Q4H PRN PRN Reason: Pain (moderate 4-6) Last Admin: 06/07/19 06:09 Dose: 5 mg Polyethylene Glycol (Miralax) 17 gm PO ONETIME ONE Stop: 06/08/19 20:01 Last Admin: 06/08/19 20:59 Dose: 17 gm Vancomycin HCl (Pharmacy To Dose - Vancomycin) 0 dose .XX ASDIRECTED PRN PRN Reason: RX TO DOSE VANCOMYCIN
[2019-06-10] MEDS ORDERED: Ondansetron 4 MG/2 ML SDV IVPUSH PRN (12:31)
[2019-06-10] MEDS ORDERED: Meropenem Premix 50 ML ONE (12:45)
[2019-06-10] MEDS: Hydrocortisone 1% Crm 30 GM Tube TOP PRN ×2 (13:15→16:32)
--- NOTE | 2019-06-10 15:57 | CR ---
Abdomen: Supine view the abdomen was obtained. Comparison: Prior abdominal x-ray of 03/08/19. Increased stool is seen throughout colon. Spinal fixation rods are noted. Partially visualized hardware within the left hip is seen. Osteopenia is noted. Impression: 1. Increased stool within the colon. Other findings which are believed to be incidental. Diagnostic code #2
== END 2019-06-10 17:00 | disposition home or self-care (01) | DRG 698 ==
LOC: JD.ED 19:47 → JD.MS 22:07
PROVIDERS: ADMIT Family Medicine; ATTEND Family Medicine
DX: T83.510A Infection and inflammatory reaction due to cystostomy catheter, initial encounter (principal); T83.518A Infection and inflammatory reaction due to other urinary catheter, initial encounter; A41.9 Sepsis, unspecified organism; G82.20 Paraplegia, unspecified; N39.0 Urinary tract infection, site not specified; R50.9 Fever, unspecified; R10.30 Lower abdominal pain, unspecified; M79.605 Pain in left leg; H26.9 Unspecified cataract; E78.00 Pure hypercholesterolemia, unspecified; I10 Essential (primary) hypertension; K21.9 Gastro-esophageal reflux disease without esophagitis; Z93.3 Colostomy status; Z89.611 Acquired absence of right leg above knee; Y83.3 Surgical operation with formation of external stoma as the cause of abnormal reaction of the patient, or of later complication, without mention of misadventure at the time of the procedure; K59.09 Other constipation; E03.9 Hypothyroidism, unspecified; Z96.619 Presence of unspecified artificial shoulder joint; G89.29 Other chronic pain; G47.00 Insomnia, unspecified; D50.0 Iron deficiency anemia secondary to blood loss (chronic); Z91.041 Radiographic dye allergy status; Z98.1 Arthrodesis status; Z91.048 Other nonmedicinal substance allergy status; Z79.899 Other long term (current) drug therapy
CPT/HCPCS: 36415; 71045; 80053; 81001; 83605; 83735; 83880; 85007; 85027; 85652; 86140; 87040 ×2; 87086; 87088 ×3; 87186 ×3; 93005; 96361; 96374; 96375; 99284; A9270; J1170; J2185; J2765; J7042; 51702; 74018; 74018-26; 80202; 85025; 93010; 97110-GO; 97161-GP; 97165-GO; 99285; J1200; J1642; J1650; J2405; J3370; J3475; J7050

== ENCOUNTER 2019-12-10 08:57 | Emergency (ER) | payer MEDICARE, BC ==
[2019-12-10 09:34] VITALS: BP 154/81; PULSE 88
--- NOTE | 2019-12-10 10:21 | EDM.PDOC ---
ED HPI GENERAL MEDICAL PROBLEM - General Chief Complaint: Genitourinary Problem Stated Complaint: PAINFUL URINATION Time Seen by Provider: 12/10/19 09:15 Source of Information: Reports: Patient History Limitations: Reports: No Limitations - History of Present Illness INITIAL COMMENTS - FREE TEXT/NARRATIVE: The patient presents for possible UTI. The patient is paraplegic and has a suprapubic urinary catheter. He is prone to infections. He felt some burning this morning. He also has some nausea but no vomiting. He has chills but no fever. He says he will usually get a UTI every month. He had one last month. Onset: Gradual Duration: Hour(s): (2am) Location: Reports: Abdomen Quality: Reports: Burning Severity: Mild Improves with: Reports: None Worsens with: Reports: None Associated Symptoms: Reports: Fever/Chills, Nausea/Vomiting. Denies: Chest Pain , Cough, Headaches, Shortness of Breath Lower Abdomen Pain Score (Numeric/FACES): 5 - Related Data Allergies Allergy/AdvReac Type Severity Reaction Status Date / Time povidone-iodine Allergy Rash Verified 12/10/19 09:12 [From Betadine] soap [From Betadine] Allergy Rash Verified 12/10/19 09:12 Home Meds: Home Meds Cyclobenzaprine [Flexeril] 10 mg PO BEDTIME 03/08/19 [History] Levothyroxine [Synthroid] 100 mcg PO DAILY 03/08/19 [History] Losartan [Cozaar] 50 mg PO DAILY 03/08/19 [History] Pantoprazole [ProTONIX] 40 mg PO DAILY 03/08/19 [History] atorvaSTATin [Lipitor] 20 mg PO DAILY 03/08/19 [History] Acetaminophen [Tylenol] 650 mg PO Q4H PRN tablet 03/14/19 [Rx] Hydrocodone/Acetaminophen [Hydrocodon-Acetaminophen 5-325] 1 - 2 each PO Q6HR PRN #20 tablet 03/28/19 [Rx] Lactobacillus Combination No.4 [Probiotic] 1 tab PO DAILY 03/28/19 [History] Ondansetron [Zofran ODT] 4 mg PO Q6H PRN #20 tab.dis 03/28/19 [Rx] Sennosides/Docusate Sodium [Senna Plus 8.6-50 mg Tablet] 2 tab PO ASDIRECTED PRN 06/07/19 [History] Sucralfate [Carafate] 1 gm PO ASDIRECTED PRN 06/07/19 [History] bisacodyL [Dulcolax] 10 mg PO ASDIRECTED PRN 06/07/19 [History] traZODone HCl [Trazodone HCl] 100 mg PO BEDTIME 06/07/19 [History] Hydrocortisone [Hydrocortisone 1% Crm] 30 gm TOP Q4H PRN #4 tube 06/10/19 [Rx] Ondansetron [Zofran ODT] 4 mg PO Q6H PRN #20 tab.dis 12/10/19 [Rx] Sulfamethoxazole/Trimethoprim [Bactrim Ds Tablet] 1 each PO BID #14 tablet 12/09 [Rx] Past Medical History HEENT History: Reports: Cataract Cardiovascular History: Reports: High Cholesterol, Hypertension Other Cardiovascular History: HTN Respiratory History: Reports: None Gastrointestinal History: Reports: Chronic Constipation, Fecal Incontinence, GERD Genitourinary History: Reports: UTI, Recurrent, Other (See Below) Other Genitourinary History: pseudamonas infections Musculoskeletal History: Reports: Amputation Other Musculoskeletal History: parapelegic Neurological History: Reports: Other (See Below) Other Neuro History: Paraplegia Psychiatric History: Reports: None Endocrine/Metabolic History: Reports: Hypothyroidism Hematologic History: Reports: Anemia, Blood Transfusion(s) Immunologic History: Reports: None Oncologic (Cancer) History: Reports: None Dermatologic History: Reports: Decubitus Ulcer Other Dermatologic History: healed decub to his coccyx, uses a mepilex for protection since the area is so erasto and the skin is thin. 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 (Per IP and lab 06/08/19) - Past Surgical History HEENT Surgical History: Reports: Tonsillectomy Cardiovascular Surgical History: Reports: None Respiratory Surgical History: Reports: None GI Surgical History: Reports: Colonoscopy, Colostomy Other GI Surgeries/Procedures: colostomy revision Male Surgical History: Reports: Suprapubic Catheter Placement Endocrine Surgical History: Reports: None Neurological Surgical History: Reports: Spinal Fusion Musculoskeletal Surgical History: Reports: Amputation, Shoulder Replacement, Shoulder Surgery, Other (See Below) Dermatological Surgical History: Reports: Other (See Below) Social & Family History - Family History Family Medical History: Noncontributory Oncologic: Reports: Brain - Tobacco Use Smoking Status *Q: Never Smoker - Caffeine Use Caffeine Use: Reports: Coffee, Soda - Recreational Drug Use Recreational Drug Use: No - Living Situation & Occupation Living situation: Reports: Occupation: Retired ED ROS GENERAL - Review of Systems Review Of Systems: See Below Constitutional: Reports: Chills. Denies: Fever HEENT: Reports: No Symptoms Respiratory: Reports: No Symptoms Cardiovascular: Reports: No Symptoms Endocrine: Reports: No Symptoms GI/Abdominal: Reports: Abdominal Pain, Nausea. Denies: Vomiting : Reports: No Symptoms ED EXAM, RENAL/ - Physical Exam Exam: See Below Exam Limited By: No Limitations General Appearance: Alert, No Apparent Distress Ears: Normal External Exam Nose: Normal Inspection Head: Atraumatic, Normocephalic Neck: Normal Inspection Respiratory/Chest: No Respiratory Distress, Lungs Clear, Normal Breath Sounds Cardiovascular: Regular Rate, Rhythm, No Edema, No Murmur GI/Abdominal: Soft, Non-Tender, No Organomegaly, No Mass Course - Vital Signs Last Recorded V/S: Last Vital Signs Temp 98.2 F 12/10/19 09:10 Pulse 88 12/10/19 09:10 Resp 16 12/10/19 09:10 BP 154/81 H 12/10/19 09:17 Pulse Ox 98 12/10/19 09:10 - Orders/Labs/Meds Orders: Active Orders 24 hr Category Date Time Status CULTURE URINE [RM] Stat Lab 12/10/19 09:20 Received Labs: Laboratory Tests 12/10/19 Range/Units 09:20 Urine Color Yellow (Yellow) Urine Appearance Clear (Clear) Urine pH 7.0 (5.0-8.0) Ur Specific [place] 1.015 (1.005-1.030) Urine Protein Negative (Negative) Urine Glucose (UA) Negative (Negative) Urine Ketones Negative (Negative) Urine Occult Blood Negative (Negative) Urine Nitrite Negative (Negative) Urine Bilirubin Negative (Negative) Urine Urobilinogen 0.2 (0.2-1.0) Ur Leukocyte Esterase Trace H (Negative) Urine RBC 0-5 (0-5) /hpf Urine WBC 5-10 H (0-5) /hpf Ur Squamous Epith Cells 0-5 (0-5) /hpf Urine Bacteria Few (FEW) /hpf Urine Mucus Few (FEW) /hpf - Re-Assessments/Exams Free Text/Narrative Re-Assessment/Exam: 12/10/19 10:21 I have ordered a UA. 12/10/19 11:07 He has some leukocyte esterase and WBCs. Looking at susceptibilities on last culture I may be able to use some bactrim. I will send a prescription. Departure - Departure Time of Disposition: 11:10 Disposition: Home, Self-Care 01 Condition: Good Clinical Impression: UTI (urinary tract infection) due to urinary indwelling catheter Qualifiers: Indwelling urinary catheter type: indwelling urethral catheter Encounter type: initial encounter Qualified Code(s): T83.511A - Infection and inflammatory reaction due to indwelling urethral catheter, initial encounter - Discharge Information *PRESCRIPTION DRUG MONITORING PROGRAM REVIEWED*: Not Applicable *COPY OF PRESCRIPTION DRUG MONITORING REPORT IN PATIENT GAVI: Not Applicable Prescriptions: Ondansetron [Zofran ODT] 4 mg PO Q6H PRN #20 tab.dis PRN Reason: Nausea\vomiting Sulfamethoxazole/Trimethoprim [Bactrim Ds Tablet] 1 each PO BID #14 tablet Referrals: Alaina Vásquez NP [Primary Care Provider] - 1 Week Forms: ED Department Discharge Additional Instructions: Drink plenty of fluids. Take bactrim 2 times per day for 7 days. Take the zofran every 6 hours as needed for nausea and vomiting. Please return if you are worse. Sepsis Event Note - Evaluation Sepsis Screening Result: No Definite Risk - Focused Exam Vital Signs: Vital Signs Temp Pulse Resp BP Pulse Ox 12/10/19 09:17 154/81 H 12/10/19 09:10 98.2 F 88 16 170/80 H 98 Date Exam was Performed: 12/10/19 Time Exam was Performed: 11:07 - My Orders Last 24 Hours: My Active Orders 12/10/19 09:20 CULTURE URINE [RM] Stat - Assessment/Plan Last 24 Hours: My Active Orders 12/10/19 09:20 CULTURE URINE [RM] Stat
== END 2019-12-10 11:20 | disposition home or self-care (01) ==
LOC: JD.ED 08:57
DX: T83.511A Infection and inflammatory reaction due to indwelling urethral catheter, initial encounter (principal); N39.0 Urinary tract infection, site not specified; I10 Essential (primary) hypertension; E78.00 Pure hypercholesterolemia, unspecified; K21.9 Gastro-esophageal reflux disease without esophagitis; E03.9 Hypothyroidism, unspecified; Z90.49 Acquired absence of other specified parts of digestive tract; Z88.8 Allergy status to other drugs, medicaments and biological substances; Z91.048 Other nonmedicinal substance allergy status; Z79.899 Other long term (current) drug therapy
CPT/HCPCS: 81001; 87086; 87088; 87186; 99283

== ENCOUNTER 2020-02-12 12:10 | Emergency (ER) | payer MEDICARE, BC ==
[2020-02-12 12:24] VITALS: BP 154/83; PULSE 94
[2020-02-12] MEDS ORDERED: Sodium Chloride 0.9% 10 ML Syringe FLUSH PRN (12:44)
--- NOTE | 2020-02-12 13:11 | EDM.PDOC ---
ED HPI GENERAL MEDICAL PROBLEM - General Chief Complaint: Genitourinary Problem Stated Complaint: RASH/PAIN WHILE URINATING Time Seen by Provider: 02/12/20 12:20 Source of Information: Reports: Patient History Limitations: Reports: No Limitations - History of Present Illness INITIAL COMMENTS - FREE TEXT/NARRATIVE: patient is a 74 year old male with a past medical history significant for paraplegia and recurrent UTIs with a suprapubic catheter who presents to the emergency deprtment with c/o epigastric burning, burning with urination, and generalized pruritus with rash. Patient was seen in the clinic with his primary care provider on 06 February for symptoms of dysuria and rash. He was was found to have a urinary tract infection. He was initially started on Levaquin, however when the culture report returned it was found to be resistant to Levaquin. Patient states at that time his primary care provider recommended he come to the ER to get started on vancomycin, however the patient instead chose to start oral ampicillin. He developed burning in his epigastrium yesterday which is worse after he takes his ampicillin. He also continues to have a generalized pruritic rash. He was prescribed a 5-day course of prednisone by Rose Vásquez which she has completed, however the rash persists. He feels it may have improved slightly with the prednisone, however did not resolve. He has been using [id number] hydrocortisone cream well as oral Benadryl to help with the itching. He denies any nausea, vomiting, fever, or chills. He has not changed soaps or laundry detergents. Rash was present prior to initiating antibiotic therapy. Abdominal Pain Score (Numeric/FACES): 7 - Related Data Allergies Allergy/AdvReac Type Severity Reaction Status Date / Time povidone-iodine Allergy Rash Verified 02/12/20 12:24 [From Betadine] soap [From Betadine] Allergy Rash Verified 02/12/20 12:24 Home Meds: Home Meds Cyclobenzaprine [Flexeril] 10 mg PO BID 03/08/19 [History] Levothyroxine [Synthroid] 100 mcg PO DAILY 03/08/19 [History] Losartan [Cozaar] 50 mg PO DAILY 03/08/19 [History] Pantoprazole [ProTONIX] 40 mg PO DAILY 03/08/19 [History] atorvaSTATin [Lipitor] 20 mg PO DAILY 03/08/19 [History] Acetaminophen [Tylenol] 650 mg PO Q4H PRN tablet 03/14/19 [Rx] Hydrocodone/Acetaminophen [Hydrocodone-Acetamin 5-325 mg] 1 - 2 each PO Q6HR PRN #20 tablet 03/28/19 [Rx] Sucralfate [Carafate] 1 gm PO QID 06/07/19 [History] traZODone HCl [Trazodone HCl] 50 mg PO BID 06/07/19 [History] Hydrocortisone [Hydrocortisone 1% Crm] 30 gm TOP Q4H PRN #4 tube 06/10/19 [Rx] Sulfamethoxazole/Trimethoprim [Bactrim Ds Tablet] 1 each PO BID #14 tablet 12/09 [Rx] Ampicillin [Principen] 500 mg PO Q6H 02/12/20 [History] Linaclotide [Linzess] 145 mcg PO DAILY 02/12/20 [History] Lubiprostone [Amitiza] 24 mcg PO BIDMEALS 02/12/20 [History] Triamcinolone Acetonide 60 ml TP BID 14 Days #60 ml 02/12/20 [Rx] nitrofurantoin macrocrystaL [Nitrofurantoin] 50 mg PO DAILY 02/12/20 [History] Past Medical History HEENT History: Reports: Cataract Cardiovascular History: Reports: High Cholesterol, Hypertension Other Cardiovascular History: HTN Respiratory History: Reports: None Gastrointestinal History: Reports: Chronic Constipation, Fecal Incontinence, GERD Genitourinary History: Reports: UTI, Recurrent, Other (See Below) Other Genitourinary History: pseudamonas infections Musculoskeletal History: Reports: Amputation Other Musculoskeletal History: parapelegic Neurological History: Reports: Other (See Below) Other Neuro History: Paraplegia Psychiatric History: Reports: None Endocrine/Metabolic History: Reports: Hypothyroidism Hematologic History: Reports: Anemia, Blood Transfusion(s) Immunologic History: Reports: None Oncologic (Cancer) History: Reports: None Dermatologic History: Reports: Decubitus Ulcer Other Dermatologic History: healed decub to his coccyx, uses a mepilex for protection since the area is so erasto and the skin is thin. 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 (Per IP and lab 06/08/19) - Past Surgical History HEENT Surgical History: Reports: Tonsillectomy Cardiovascular Surgical History: Reports: None Respiratory Surgical History: Reports: None GI Surgical History: Reports: Colonoscopy, Colostomy Other GI Surgeries/Procedures: colostomy revision Male Surgical History: Reports: Suprapubic Catheter Placement Endocrine Surgical History: Reports: None Neurological Surgical History: Reports: Spinal Fusion Musculoskeletal Surgical History: Reports: Amputation, Shoulder Replacement, Shoulder Surgery Social & Family History - Family History Family Medical History: Noncontributory Oncologic: Reports: Brain - Tobacco Use Smoking Status *Q: Never Smoker - Caffeine Use Caffeine Use: Reports: Coffee, Soda - Recreational Drug Use Recreational Drug Use: No - Living Situation & Occupation Living situation: Reports: Occupation: Retired ED ROS GENERAL - Review of Systems Review Of Systems: See Below Constitutional: Denies: Fever, Chills HEENT: Reports: No Symptoms Respiratory: Reports: No Symptoms Cardiovascular: Reports: No Symptoms Endocrine: Reports: No Symptoms GI/Abdominal: Reports: Abdominal Pain (epigastric burning) : Reports: Dysuria Musculoskeletal: Reports: No Symptoms Skin: Reports: Pruritis, Rash Neurological: Reports: No Symptoms Psychiatric: Reports: No Symptoms Hematologic/Lymphatic: Reports: No Symptoms Immunologic: Reports: No Symptoms ED EXAM, GI/ABD - Physical Exam Exam: See Below Exam Limited By: No Limitations General Appearance: Alert, WD/WN, No Apparent Distress Respiratory/Chest: No Respiratory Distress, Lungs Clear, Normal Breath Sounds, No Accessory Muscle Use, Chest Non-Tender Cardiovascular: Normal Peripheral Pulses, Regular Rate, Rhythm, No Edema, No Gallop, No JVD, No Murmur, No Rub Neurological: Alert, Oriented, CN II-XII Intact, Normal Cognition, Normal Gait, Normal Reflexes, No Motor/Sensory Deficits Psychiatric: Normal Affect, Normal Mood Skin Exam: Warm, Dry, Intact, Normal Color, Rash (Faint maculopapular rash to the left lower abdomen. Patient complains of pruritus to his back as well, however there is no visible rash to that area.) Course - Vital Signs Last Recorded V/S: Last Vital Signs Temp 98.7 F 02/12/20 12:22 Pulse 94 02/12/20 12:22 Resp 16 02/12/20 12:22 BP 154/83 H 02/12/20 12:22 Pulse Ox 97 02/12/20 12:22 - Orders/Labs/Meds Orders: Active Orders 24 hr Category Date Time Status Peripheral IV Care [RC] . DIRECTED Care 02/12/20 12:44 Active Pharmacy to Dose - Vancomycin Med 02/12/20 13:16 Pending 1 dose .XX ONETIME ONE Sodium Chloride 0.9% [Saline Flush] Med 02/12/20 12:44 Active 10 ml FLUSH ASDIRECTED PRN Vancomycin 500 mg Med 02/12/20 15:00 Active Sodium Chloride 0.9% [Normal Saline] 100 ml IV ONETIME Vancomycin [Vancocin] 1 gm Med 02/12/20 14:15 Active Sodium Chloride 0.9% [Normal Saline (AdvBag)] 250 ml IV ONETIME diphenhydrAMINE [Benadryl] Med 02/12/20 14:56 Once 50 mg IVPUSH ONETIME ONE Peripheral IV Insertion Adult [OM.PC] Stat Oth 02/12/20 12:44 Ordered Medication Orders Vancomycin HCl 1 gm/ Sodium (Chloride) 250 mls @ 250 mls/hr IV ONETIME ONE Stop: 02/12/20 15:14 Last Admin: 02/12/20 14:09 Dose: 250 mls/hr Vancomycin HCl 500 mg/ Sodium (Chloride) 100 mls @ 100 mls/hr IV ONETIME ONE Stop: 02/12/20 15:59 Sodium Chloride (Saline Flush) 10 ml FLUSH ASDIRECTED PRN PRN Reason: Keep Vein Open Last Admin: 02/12/20 13:26 Dose: 10 ml Vancomycin HCl (Pharmacy To Dose - Vancomycin) 1 dose .XX ONETIME ONE Stop: 02/12/20 13:17 Labs: Laboratory Tests 02/12/20 02/12/20 Range/Units 13:24 13:24 WBC 11.54 H (4.23-9.07) K/mm3 RBC 4.57 L (4.63-6.08) M/mm3 Hgb 13.3 L D (13.7-17.5) gm/dl Hct 39.8 L (40.1-51.0) % MCV 87.1 D (79.0-92.2) fl MCH 29.1 (25.7-32.2) pg MCHC 33.4 (32.2-35.5) g/dl RDW Std Deviation 61.2 H (35.1-43.9) fL Plt Count 565 H (163-337) K/mm3 MPV 8.4 L (9.4-12.3) fl Neut % (Auto) 48.0 (34.0-67.9) % Lymph % (Auto) 41.3 (21.8-53.1) % [place] % (Auto) 9.9 (5.3-12.2) % Eos % (Auto) 0.5 L (0.8-7.0) Baso % (Auto) 0.1 (0.1-1.2) % Neut # (Auto) 5.54 H (1.78-5.38) K/mm3 Lymph # (Auto) 4.77 H (1.32-3.57) K/mm3 [place] # (Auto) 1.14 H (0.30-0.82) K/mm3 Eos # (Auto) 0.06 (0.04-0.54) K/mm3 Baso # (Auto) 0.01 (0.01-0.08) K/mm3 Sodium 135 L (136-145) mEq/L Potassium 3.8 (3.5-5.1) mEq/L Chloride 99 (98-107) mEq/L Carbon Dioxide 24 (21-32) mEq/L Anion Gap 15.8 H (5-15) BUN 21 H (7-18) mg/dL Creatinine 0.9 (0.7-1.3) mg/dL Est Cr Clr Drug Dosing TNP Estimated GFR (MDRD) > 60 (>60) mL/min BUN/Creatinine Ratio 23.3 H (14-18) Glucose 101 (83-115) mg/dL Calcium 9.2 (8.5-10.1) mg/dL Total Bilirubin 0.4 (0.2-1.0) mg/dL AST 19 (15-37) U/L ALT 35 (16-63) U/L Alkaline Phosphatase 83 (46-116) U/L C-Reactive Protein <0.2 (<1.0) mg/dL Total Protein 7.1 (6.4-8.2) g/dl Albumin 3.7 (3.4-5.0) g/dl Globulin 3.4 gm/dL Albumin/Globulin Ratio 1.1 (1-2) Meds: Medications Generic Name Dose Route Start Last Admin Trade Name Zaid PRN Reason Stop Dose Admin Vancomycin HCl 1 gm/ Sodium 250 mls @ 250 mls/hr 02/12/20 14:15 02/12/20 14: 09 Chloride IV 02/12/20 15:14 250 mls/hr ONETIME ONE Administration Vancomycin HCl 500 mg/ Sodium 100 mls @ 100 mls/hr 02/12/20 15:00 Chloride IV 02/12/20 15:59 ONETIME ONE Sodium Chloride 10 ml 02/12/20 12:44 02/12/20 13:26 Saline Flush FLUSH 10 ml ASDIRECTED PRN Administration Keep Vein Open Vancomycin HCl 1 dose 02/12/20 13:16 Pharmacy To Dose - Vancomycin .XX 02/12/20 13:17 ONETIME ONE - Re-Assessments/Exams Free Text/Narrative Re-Assessment/Exam: Based on patient history and report, is likely the ampicillin is causing a gastritis in his epigastrium. We have ordered a CBC, CMP, CRP. We will obtain records from [place] for his urinalysis and urine culture. Plan will be to switch him to outpatient IV antibiotics depending on what the culture report shows. 02/12/20 13:17 Records obtained from [facility] show patient has a urinary tract infection with enterococcus faecalis susceptible to ampicillin, nitrofurantoin, and vancomycin. Patient is allergic to nitrofurantoin. The highest level susceptibility is with vancomycin. We will plan to treat the infection with vancomycin IV as an outpatient. We will give him his first dose of vancomycin in the emergency department today. With regards to his rash, it has the appearance of an atopic dermatitis. He has been using itye-uqm-umaphfw hydrocortisone cream. I will plan to prescribe a triamcinolone lotion and have him follow-up with his primary care provider to monitor the rash. 02/12/20 14:56 Spoke with Dione at tele-pharmacy. Based on patient's creatinine and history, a dose of vancomycin 1.5 g every 24 hours would be appropriate. Based on this, he will not be due for his next dose until tomorrow afternoon. Outpatient orders for pharmacy to dose vancomycin have been written. We will allow the patient to go home with instructions to return for outpatient antibiotics and follow-up with his primary care provider. Patient is having some itching related to his rash. Last dose of Benadryl was around 730 this morning. I ordered Benadryl 50 mg IV. discharge instructions as documented. Departure - Departure Time of Disposition: 14:57 Disposition: Home, Self-Care 01 Condition: Good Clinical Impression: UTI (urinary tract infection) due to urinary indwelling catheter Qualifiers: Indwelling urinary catheter type: indwelling urethral catheter Encounter type: initial encounter Qualified Code(s): T83.511A - Infection and inflammatory reaction due to indwelling urethral catheter, initial encounter; N39.0 - Urinary tract infection, site not specified Atopic dermatitis Qualifiers: Atopic dermatitis type: unspecified Qualified Code(s): L20.9 - Atopic dermatitis, unspecified - Discharge Information *PRESCRIPTION DRUG MONITORING PROGRAM REVIEWED*: No *COPY OF PRESCRIPTION DRUG MONITORING REPORT IN PATIENT GAVI: No Prescriptions: Triamcinolone Acetonide 60 ml TP BID 14 Days #60 ml Instructions: Urinary Tract Infection, Adult, [id number], Atopic Dermatitis Referrals: Alaina Vásquez NP [Primary Care Provider] - Forms: ED Department Discharge Additional Instructions: You were seen in the emergency department today for urinary tract infection, rash, and epigastric burning was worsened by your antibiotic. Based on your exam and history, it is likely that the burning in your epigastrium is caused by the ampicillin that you are taking orally. Culture reports were obtained from [place]. Based on this we will switch you to IV vancomycin as an outpatient. You received your first dose in the emergency department. Next dose will be due tomorrow afternoon. You should not take any further doses of your oral ampicillin. A prescription for triamcinolone lotion has been sent to [facility] for you to apply to your rash. You may continue to use [id number] Benadryl as needed for itching. Recommend that you follow-up with your primary care provider for ongoing management of this. Return to the ER as needed. Sepsis Event Note - Evaluation Sepsis Screening Result: No Definite Risk - Focused Exam Vital Signs: Vital Signs Temp Pulse Resp BP Pulse Ox 02/12/20 12:22 98.7 F 94 16 154/83 H 97 Date Exam was Performed: 02/12/20 Time Exam was Performed: 14:56 - My Orders Last 24 Hours: My Active Orders 02/12/20 12:44 Peripheral IV Care [RC] . DIRECTED Sodium Chloride 0.9% [Saline Flush] 10 ml FLUSH ASDIRECTED PRN Peripheral IV Insertion Adult [OM.PC] Stat 02/12/20 13:16 Pharmacy to Dose - Vancomycin 1 dose .XX ONETIME ONE 02/12/20 14:15 Vancomycin [Vancocin] 1 gm Sodium Chloride 0.9% [Normal Saline (AdvBag)] 250 ml IV ONETIME 02/12/20 14:56 diphenhydrAMINE [Benadryl] 50 mg IVPUSH ONETIME ONE 02/12/20 15:00 Vancomycin 500 mg Sodium Chloride 0.9% [Normal Saline] 100 ml IV ONETIME - Assessment/Plan Last 24 Hours: My Active Orders 02/12/20 12:44 Peripheral IV Care [RC] . DIRECTED Sodium Chloride 0.9% [Saline Flush] 10 ml FLUSH ASDIRECTED PRN Peripheral IV Insertion Adult [OM.PC] Stat 02/12/20 13:16 Pharmacy to Dose - Vancomycin 1 dose .XX ONETIME ONE 02/12/20 14:15 Vancomycin [Vancocin] 1 gm Sodium Chloride 0.9% [Normal Saline (AdvBag)] 250 ml IV ONETIME 02/12/20 14:56 diphenhydrAMINE [Benadryl] 50 mg IVPUSH ONETIME ONE 02/12/20 15:00 Vancomycin 500 mg Sodium Chloride 0.9% [Normal Saline] 100 ml IV ONETIME
[2020-02-12] MEDS ORDERED: diphenhydrAMINE 50 MG/ML SDV IVPUSH ONE (14:56)
== END 2020-02-12 16:39 | disposition home or self-care (01) ==
LOC: JD.ED 12:10
DX: L20.9 Atopic dermatitis, unspecified (principal); T83.511A Infection and inflammatory reaction due to indwelling urethral catheter, initial encounter; N39.0 Urinary tract infection, site not specified; I10 Essential (primary) hypertension; E78.00 Pure hypercholesterolemia, unspecified; K21.9 Gastro-esophageal reflux disease without esophagitis; E03.9 Hypothyroidism, unspecified; Z79.899 Other long term (current) drug therapy; Z91.048 Other nonmedicinal substance allergy status; Z88.6 Allergy status to analgesic agent
CPT/HCPCS: 36415; 80053; 85025; 86140; 96365; 96375; 96376; 99283; J1200; J3370; J7050

== ENCOUNTER 2021-01-08 12:57 | Emergency (ER) | payer MEDICARE, BC ==
--- NOTE | 2021-01-08 14:44 | CR ---
Left femur: AP and lateral views of the left femur were obtained. Comparison: No prior femur study is available. Deformity is noted above the knee compatible with old fracture which presumably is chronic. Joint space narrowing is noted within the medial joint compartment. Compression screw and plate are noted within the left hip. Osteopenia is noted. No acute abnormality is appreciated. Vascular calcification is noted. Impression: 1. Multiple findings as noted above believed to be chronic. 2. Nothing acute is appreciated. Diagnostic code #2
--- NOTE | 2021-01-08 14:46 | CR ---
Left tibia and fibula: AP and lateral views of the left tibia and fibula were obtained. Comparison: No previous study. Deformity within the distal femur is seen at the knee presumably due to old fracture. Uncertain as to healing of this abnormality. There is joint space narrowing within the medial joint compartment. Osteopenia is seen. No acute fracture or other abnormality is appreciated. Impression: 1. Findings within the left knee as noted above which are most likely chronic. 2. Osteopenia. 3. No acute abnormality is appreciated. Diagnostic code #2
[2021-01-08] MEDS ORDERED: Ondansetron 4 MG Tab.DIS PO ONE (15:28)
--- NOTE | 2021-01-08 15:28 | EDM.PDOC ---
ED HPI GENERAL MEDICAL PROBLEM - General Chief Complaint: Lower Extremity Injury/Pain Stated Complaint: LT ANKLE PAIN Time Seen by Provider: 01/08/21 13:19 Source of Information: Reports: Patient History Limitations: Reports: No Limitations - History of Present Illness INITIAL COMMENTS - FREE TEXT/NARRATIVE: The patient presents with left leg injury. He was taking out the trash and he caught his leg under the wheel chair. He is concerned he may have fractured his leg. He is paraplegic and cannot move his legs but he will have some burning at times. He also has some burning in his low abdomen. He has no fever or chills. He has no cough, chest pain, or shortness of breath. Onset: Sudden Duration: Minutes: Location: Reports: Lower Extremity, Left (leg) Quality: Reports: Burning Severity: Mild Improves with: Reports: None Worsens with: Reports: None Associated Symptoms: Reports: No Other Symptoms Left Leg Pain Score (Numeric/FACES): 8 Abdomen Pain Score (Numeric/FACES): 6 - Related Data Allergies Allergy/AdvReac Type Severity Reaction Status Date / Time povidone-iodine Allergy Rash Verified 01/08/21 13:13 [From Betadine] soap [From Betadine] Allergy Rash Verified 01/08/21 13:13 Home Meds: Home Meds Cyclobenzaprine [Flexeril] 10 mg PO BID 03/08/19 [History] Levothyroxine [Synthroid] 100 mcg PO DAILY 03/08/19 [History] Losartan [Cozaar] 50 mg PO DAILY 03/08/19 [History] Pantoprazole [ProTONIX] 40 mg PO DAILY 03/08/19 [History] atorvaSTATin [Lipitor] 20 mg PO DAILY 03/08/19 [History] Acetaminophen [Tylenol] 650 mg PO Q4H PRN tablet 03/14/19 [Rx] Hydrocodone/Acetaminophen [Hydrocodone-Acetamin 5-325 mg] 1 - 2 each PO Q6HR PRN #20 tablet 03/28/19 [Rx] Sucralfate [Carafate] 1 gm PO QID 06/07/19 [History] traZODone HCl [Trazodone HCl] 50 mg PO BID 06/07/19 [History] Hydrocortisone [Hydrocortisone 1% Crm] 30 gm TOP Q4H PRN #4 tube 06/10/19 [Rx] Sulfamethoxazole/Trimethoprim [Bactrim Ds Tablet] 1 each PO BID #14 tablet 12/10/19 [Rx] Ampicillin [Principen] 500 mg PO Q6H 02/12/20 [History] Linaclotide [Linzess] 145 mcg PO DAILY 02/12/20 [History] Lubiprostone [Amitiza] 24 mcg PO BIDMEALS 02/12/20 [History] Triamcinolone Acetonide 60 ml TP BID 14 Days #60 ml 02/12/20 [Rx] nitrofurantoin macrocrystaL [Nitrofurantoin] 50 mg PO DAILY 02/12/20 [History] Ondansetron [Zofran ODT] 4 mg PO Q6H PRN #20 tab.dis 01/08/21 [Rx] Past Medical History HEENT History: Reports: Cataract, Impaired Vision Other HEENT History: wears eyeglasses Cardiovascular History: Reports: High Cholesterol, Hypertension Other Cardiovascular History: HTN Respiratory History: Reports: Pneumonia, Recurrent, Other (See Below) Other Respiratory History: insomnia Gastrointestinal History: Reports: Chronic Constipation, Fecal Incontinence, GERD, PUD Genitourinary History: Reports: UTI, Recurrent, Other (See Below) Other Genitourinary History: pseudamonas infections Musculoskeletal History: Reports: Amputation Other Musculoskeletal History: parapelegic Neurological History: Reports: Other (See Below) Other Neuro History: Paraplegia Psychiatric History: Reports: None Endocrine/Metabolic History: Reports: Hypomagnesemia, Hypothyroidism Hematologic History: Reports: Anemia, Blood Transfusion(s) Immunologic History: Reports: None Oncologic (Cancer) History: Reports: None Dermatologic History: Reports: Decubitus Ulcer Other Dermatologic History: healed decub to his coccyx, uses a mepilex for protection since the area is so erasto and the skin is thin. Dermatitis. 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 (Per IP and lab 06/08/19) - Past Surgical History HEENT Surgical History: Reports: Cataract Surgery, Tonsillectomy GI Surgical History: Reports: Colonoscopy, Colostomy Other GI Surgeries/Procedures: colostomy revision Male Surgical History: Reports: Suprapubic Catheter Placement Neurological Surgical History: Reports: Spinal Fusion Musculoskeletal Surgical History: Reports: Amputation, Shoulder Replacement, Shoulder Surgery Other Musculoskeletal Surgeries/Procedures:: right below the knee amputation Dermatological Surgical History: Reports: Other (See Below) Social & Family History - Family History Family Medical History: No Pertinent Family History Oncologic: Reports: Brain - Tobacco Use Tobacco Use Status *Q: Never Tobacco User Second Hand Smoke Exposure: No - Caffeine Use Caffeine Use: Reports: Coffee, Soda, Tea - Recreational Drug Use Recreational Drug Use: No - Living Situation & Occupation Living situation: Reports: Occupation: Retired Review of Systems - Review of Systems Review Of Systems: See Below Constitutional: Reports: No Symptoms Eyes: Reports: No Symptoms Ears: Reports: No Symptoms Nose: Reports: No Symptoms Mouth/Throat: Reports: No Symptoms Respiratory: Reports: No Symptoms Cardiovascular: Reports: No Symptoms GI/Abdominal: Reports: No Symptoms Genitourinary: Reports: No Symptoms Musculoskeletal: Reports: Other (left ankle and knee edema) ED EXAM, GENERAL - Physical Exam Exam: See Below Exam Limited By: No Limitations General Appearance: Alert, No Apparent Distress Ears: Normal External Exam Nose: Normal Inspection Head: Atraumatic, Normocephalic Neck: Normal Inspection Respiratory/Chest: No Respiratory Distress, Lungs Clear, Normal Breath Sounds Cardiovascular: Regular Rate, Rhythm, No Edema, No Murmur GI/Abdominal: Soft, Non-Tender, No Organomegaly, No Mass Back Exam: Normal Inspection Extremities: Other (Left knee has mild edema along with the ankle. He does not feel any pain with palpation. There is no crepitus. Good pulses distally.) Course - Vital Signs Last Recorded V/S: Last Vital Signs Temp 98.0 F 01/08/21 13:10 Pulse 88 01/08/21 13:10 Resp 16 01/08/21 13:10 BP 180/106 H 01/08/21 13:10 Pulse Ox 92 L 01/08/21 13:10 - Orders/Labs/Meds Orders: Active Orders 24 hr Category Date Time Status CULTURE URINE [RM] Stat Lab 01/08/21 13:40 Received Labs: Laboratory Tests 01/08/21 01/08/21 01/08/21 Range/Units 13:40 13:44 13:44 WBC 6.88 (4.23-9.07) K/mm3 RBC 3.99 L (4.63-6.08) M/mm3 Hgb 11.8 L D (13.7-17.5) gm/dl Hct 37.4 L (40.1-51.0) % MCV 93.7 H D (79.0-92.2) fl MCH 29.6 (25.7-32.2) pg MCHC 31.6 L (32.2-35.5) g/dl RDW Std Deviation 55.6 H (35.1-43.9) fL Plt Count 576 H (163-337) K/mm3 MPV 8.5 L (9.4-12.3) fl Neut % (Auto) 50.6 (34.0-67.9) % Lymph % (Auto) 35.5 (21.8-53.1) % [place] % (Auto) 10.5 (5.3-12.2) % Eos % (Auto) 2.3 (0.8-7.0) Baso % (Auto) 1.0 (0.1-1.2) % Neut # (Auto) 3.48 (1.78-5.38) K/mm3 Lymph # (Auto) 2.44 (1.32-3.57) K/mm3 [place] # (Auto) 0.72 (0.30-0.82) K/mm3 Eos # (Auto) 0.16 (0.04-0.54) K/mm3 Baso # (Auto) 0.07 (0.01-0.08) K/mm3 Sodium 139 (136-145) mEq/L Potassium 4.4 (3.5-5.1) mEq/L Chloride 103 (98-107) mEq/L Carbon Dioxide 25 (21-32) mEq/L Anion Gap 15.4 H (5-15) BUN 15 (7-18) mg/dL Creatinine 0.9 (0.7-1.3) mg/dL Est Cr Clr Drug Dosing 61.44 mL/min Estimated GFR (MDRD) > 60 (>60) mL/min BUN/Creatinine Ratio 16.7 (14-18) Glucose 100 (83-115) mg/dL Calcium 8.8 (8.5-10.1) mg/dL Total Bilirubin 0.4 (0.2-1.0) mg/dL AST 16 (15-37) U/L ALT 25 (16-63) U/L Alkaline Phosphatase 75 (46-116) U/L Total Protein 7.1 (6.4-8.2) g/dl Albumin 3.9 (3.4-5.0) g/dl Globulin 3.2 gm/dL Albumin/Globulin Ratio 1.2 (1-2) Urine Color Yellow (Yellow) Urine Appearance Cloudy H (Clear) Urine pH 7.0 (5.0-8.0) Ur Specific [place] 1.015 (1.005-1.030) Urine Protein Negative (Negative) Urine Glucose (UA) Negative (Negative) Urine Ketones Negative (Negative) Urine Occult Blood Negative (Negative) Urine Nitrite Positive H (Negative) Urine Bilirubin Negative (Negative) Urine Urobilinogen 0.2 (0.2-1.0) Ur Leukocyte Esterase 1+ H (Negative) Urine RBC 0-5 (0-5) /hpf Urine WBC 0-5 (0-5) /hpf Ur Epithelial Cells 0-5 (0-5) /hpf Amorphous Sediment Many H (NOT SEEN) /hpf Urine Bacteria Many H (FEW) /hpf Urine Mucus Not seen (FEW) /hpf - Re-Assessments/Exams Free Text/Narrative Re-Assessment/Exam: 01/08/21 15:30 The x-ray of his femur and tib/fib show chronic changes but nothing acute. His Hgb was a little low at 11.8. His CMP looks good. His UA shows positive nitrites. I feel he is colonized. I will get a urine culture. 01/08/21 15:34 He also said he has been nauseated for awhile. I will give him a dose of zofran here and a prescription for more. Departure - Departure Time of Disposition: 15:35 Disposition: Home, Self-Care 01 Condition: Good Clinical Impression: Left ankle sprain Qualifiers: Encounter type: initial encounter Involved ligament of ankle: unspecified ligament Qualified Code(s): S93.402A - Sprain of unspecified ligament of left ankle, initial encounter - Discharge Information *PRESCRIPTION DRUG MONITORING PROGRAM REVIEWED*: Not Applicable *COPY OF PRESCRIPTION DRUG MONITORING REPORT IN PATIENT GAVI: Not Applicable Prescriptions: Ondansetron [Zofran ODT] 4 mg PO Q6H PRN #20 tab.dis PRN Reason: Nausea\vomiting Referrals: Alaina Vásquez NP [Primary Care Provider] - 1 Week Additional Instructions: Take prilosec daily for a couple weeks. Take the zofran as needed for nausea and vomiting. You can take that every 6 hours. Please return if you are worse. Sepsis Event Note (ED) - Evaluation Sepsis Screening Result: No Definite Risk - Focused Exam Vital Signs: Vital Signs Temp Pulse Resp BP Pulse Ox 01/08/21 13:10 98.0 F 88 16 180/106 H 92 L - My Orders Last 24 Hours: My Active Orders 01/08/21 13:40 CULTURE URINE [RM] Stat - Assessment/Plan Last 24 Hours: My Active Orders 01/08/21 13:40 CULTURE URINE [RM] Stat
[2021-01-08 16:22] VITALS: BP 180/100; PULSE 84
== END 2021-01-08 16:19 | disposition home or self-care (01) ==
LOC: JD.ED 12:57
DX: S93.402A Sprain of unspecified ligament of left ankle, initial encounter (principal); R10.9 Unspecified abdominal pain; I10 Essential (primary) hypertension; E78.00 Pure hypercholesterolemia, unspecified; K21.9 Gastro-esophageal reflux disease without esophagitis; E03.9 Hypothyroidism, unspecified; Z88.8 Allergy status to other drugs, medicaments and biological substances; Z79.899 Other long term (current) drug therapy; W23.0XXA Caught, crushed, jammed, or pinched between moving objects, initial encounter
CPT/HCPCS: 36415; 73552; 73590; 80053; 81001; 85025; 87086; 99283; A9270

== ENCOUNTER 2021-10-05 22:52 | Emergency (ER) | payer MEDICARE, BC ==
[2021-10-05 23:14] VITALS: BP 167/89; PULSE 87
== END 2021-10-06 01:27 | disposition home or self-care (01) ==
LOC: JD.ED 22:52
DX: T83.010A Breakdown (mechanical) of cystostomy catheter, initial encounter (principal); E78.00 Pure hypercholesterolemia, unspecified; I10 Essential (primary) hypertension; Z91.048 Other nonmedicinal substance allergy status; Z88.8 Allergy status to other drugs, medicaments and biological substances; Z79.899 Other long term (current) drug therapy; Z87.891 Personal history of nicotine dependence
CPT/HCPCS: 36415; 80053; 81001; 85025; 99284

== ENCOUNTER → 2021-10-31 | Day surgery (SDC) | payer MEDICARE, BC ==
[~2021-10-31] MED LIST: Brimonidine 0.2% Ophth Soln 5 ML Bottle EYEBOTH SCH
[2021-10-31] MEDS: Phenylephrine 2.5% Ophth Soln 2 ML Bot EYEBOTH SCH ×2 (16:00→16:08)
[2021-10-31] MEDS: Tropicamide 1% Ophth Soln 15 ML Bottle EYEBOTH SCH ×2 (16:03→16:15)
== END ==
LOC: JD.SDS 15:35
PROVIDERS: ATTEND Ophthalmology
DX: H26.493 Other secondary cataract, bilateral (principal); H43.813 Vitreous degeneration, bilateral; H43.393 Other vitreous opacities, bilateral; H35.413 Lattice degeneration of retina, bilateral; H35.3131 Nonexudative age-related macular degeneration, bilateral, early dry stage; E78.00 Pure hypercholesterolemia, unspecified; I10 Essential (primary) hypertension; Z88.8 Allergy status to other drugs, medicaments and biological substances; Z96.1 Presence of intraocular lens; Z98.890 Other specified postprocedural states; Z87.891 Personal history of nicotine dependence; Z79.899 Other long term (current) drug therapy

== ENCOUNTER 2023-03-26 09:07 | Inpatient (IN) | payer MEDICARE, BC ==
[2023-03-26 09:33] LABS: HEMATOCRIT 30.3 % (40.1-51.0); MEAN CORPUSCULAR HEMOGLOBIN 31.9 pg (25.7-32.2); MEAN CORPUSCULAR HGB CONC 32.3 g/dl (32.2-35.5); MEAN CORPUSCULAR VOLUME 98.7 fl (79.0-92.2); MEAN PLATELET VOLUME 8.7 fl (9.4-12.3); RED BLOOD CELL COUNT 3.07 M/mm3 (4.63-6.08)
[2023-03-26 09:34] LABS: HEMOGLOBIN 9.8 gm/dl (13.7-17.5); PLATELET COUNT,PLT 586 K/mm3 (163-337)
[2023-03-26 09:45] LABS: LACTIC ACID 0.7 mmol/L (0.4-2.0)
[2023-03-26 09:52] LABS: A/G RATIO 0.7 (1-2); ALANINE AMINOTRANSFERASE,ALT 21 U/L (16-63); ALBUMIN 2.7 g/dl (3.4-5.0); ALKALINE PHOSPHATASE 164 U/L (46-116); ANION GAP 13.9 (5-15); ASPARTATE AMNIOTRANSFERASE,AST 29 U/L (15-37); BILIRUBIN TOTAL 0.5 mg/dL (0.2-1.0); BLOOD UREA NITROGEN,BUN 28 mg/dL (7-18); BUN/CREATININE RATIO 23.3 (14-18); CALCIUM 9.4 mg/dL (8.5-10.1); CARBON DIOXIDE,CO2 23 mEq/L (21-32); CHLORIDE,CL 100 mEq/L (98-107); CREATININE 1.2 mg/dL (0.7-1.3); ESTIMATED GFR 63 mL/min (>60); GLUCOSE RANDOM 99 mg/dL (70-99); POTASSIUM,K 3.9 mEq/L (3.5-5.1); PROTEIN TOTAL,TP 6.5 g/dl (6.4-8.2); SODIUM,NA 133 mEq/L (136-145); TROPONIN I HIGH SENSITIVITY 6 pg/mL (<=76)
[2023-03-26] MEDS ORDERED: Lactated Ringers 1,000 ML IV ONE (10:09)
[2023-03-26] MEDS ORDERED: Sodium Chloride 0.9% 10 ML Syringe FLUSH PRN (10:13)
[2023-03-26] MEDS ORDERED: Iopamidol 755 Mg/ML 100 ML Bottle IVPUSH ONE (10:13)
[2023-03-26] MEDS ORDERED: Sodium Chloride 0.9% 100 ML IV SCH (10:15)
[2023-03-26 10:17] LABS: BAND PERCENT MAN 20 % (0-10); BASOPHILS PERCENT MAN 2 (0.2-1.2); EOSINOPHILS PERCENT MAN 0 % (0.8-7.0); LYMPHOCYTES % ATYPICAL MANUAL 2 %; LYMPHOCYTES PERCENT MAN 6 % (20-40); MONOCYTES PERCENT MAN 4 % (2-10)
[2023-03-26 10:19] LABS: ACANTHOCYTES 1+ SLIGHT; ANISOCYTOSIS 1+ SLIGHT; PLATELET COUNT ESTIMATE INCREASED; TARGET CELLS 1+ SLIGHT
[2023-03-26 10:22] LABS: C-REACTIVE PROTEIN 27.5 mg/dL (<1.0)
[2023-03-26] MEDS ORDERED: Albuterol/Ipratropium 3.0-0.5 MG/3 ML Neb Soln ONE (10:24)
[2023-03-26] MEDS ORDERED: Albuterol/Ipratropium 3.0-0.5 MG/3 ML Neb Soln NEB ONE (10:27)
[2023-03-26] MEDS ORDERED: Piperacillin/Tazobactam 4.5 GM in Sodium Chloride 0.9% 100 ML IV ONE (11:51)
[2023-03-26] MEDS ORDERED: Lactated Ringers 500 ML IV ONE (11:58)
[2023-03-26] MEDS ORDERED: Lactated Ringers 1,000 ML IV SCH ×2 (12:00→16:15)
[2023-03-26] MEDS ORDERED: Acetaminophen 325 MG Tab PO PRN (13:49)
[2023-03-26] MEDS ORDERED: Docusate Sodium 100 MG Cap PO PRN (13:49)
[2023-03-26] MEDS ORDERED: oxyCODONE 5 MG Tab PO PRN (13:49)
[2023-03-26] MEDS ORDERED: Bisacodyl 5 MG Tab PO PRN (13:52)
[2023-03-26] MEDS ORDERED: Sennosides 8.6 MG Tab PO PRN (13:52)
[2023-03-26] MEDS: Albuterol/Ipratropium 3.0-0.5 MG/3 ML Neb Soln NEB SCH ×2 (15:49→20:41)
[2023-03-26] MEDS: Acetaminophen/HYDROcodone 325-5 MG Tab PO PRN ×2 (16:29→20:13)
[2023-03-26] MEDS: Gabapentin 100 MG Cap PO SCH ×2 (16:29→20:13)
[2023-03-26 17:13] LABS: APPEARANCE,URINE CLEAR (Clear); BILIRUBIN,URINE NEGATIVE (Negative); COLOR,URINE YELLOW (Yellow); GLUCOSE,URINE NEGATIVE (Negative); KETONES,URINE NEGATIVE (Negative); LEUKOCYTE ESTERASE,URINE NEGATIVE (Negative); NITRITE,URINE NEGATIVE (Negative); OCCULT BLOOD,URINE TRACE-INTACT (Negative); PROTEIN,URINE 1+ (Negative); UROBILINOGEN,URINE 0.2 (0.2-1.0)
[2023-03-26] MEDS ORDERED: Lactated Ringers 1,000 ML ONE (18:36)
[2023-03-26] MEDS ORDERED: Piperacillin/Tazobactam 4.5 GM in Sodium Chloride 0.9% 100 ML IV SCH (20:00)
[2023-03-26] MEDS: Apixaban 5 MG Tab PO SCH (20:13)
[2023-03-26] MEDS: Cyclobenzaprine 10 MG Tab PO SCH (20:13)
[2023-03-26] MEDS: Donepezil 10 MG Tab PO SCH (20:14)
[2023-03-26] MEDS: atorvaSTATin 20 MG Tab PO SCH (20:14)
[2023-03-26] MEDS: traZODone 50 MG Tab PO SCH (20:14)
[2023-03-26] MEDS ORDERED: Carbidopa/Levodopa 10-100 MG Tab PO ONE (21:00)
[2023-03-26] MEDS ORDERED: Norepinephrine 4 MG in Dextrose 5% in Water 246 ML IV SCH ×2 (21:30)
[2023-03-26] MEDS ORDERED: Sodium Chloride 0.9% 1,000 ML ONE (21:47)
[2023-03-26] MEDS: Ondansetron 4 MG/2 ML SDV IV PRN (21:58)
[2023-03-26] MEDS ORDERED: Cefepime 2 GM in Sodium Chloride 0.9% 50 ML IV SCH (22:15)
[2023-03-26 22:34] LABS: HEMATOCRIT 25.7 % (40.1-51.0); HEMOGLOBIN 8.3 gm/dl (13.7-17.5); MEAN CORPUSCULAR HEMOGLOBIN 32.2 pg (25.7-32.2); MEAN CORPUSCULAR HGB CONC 32.3 g/dl (32.2-35.5); MEAN CORPUSCULAR VOLUME 99.6 fl (79.0-92.2); MEAN PLATELET VOLUME 8.5 fl (9.4-12.3); PLATELET COUNT,PLT 482 K/mm3 (163-337); RED BLOOD CELL COUNT 2.58 M/mm3 (4.63-6.08); WHITE BLOOD CELL COUNT,WBC 14.93 K/mm3 (4.23-9.07)
[2023-03-26 22:58] LABS: LACTIC ACID 0.6 mmol/L (0.4-2.0)
[2023-03-26 23:01] LABS: A/G RATIO 0.7 (1-2); ALBUMIN 2.1 g/dl (3.4-5.0); ANION GAP 12.1 (5-15); BILIRUBIN TOTAL 0.5 mg/dL (0.2-1.0); CALCIUM 8.8 mg/dL (8.5-10.1); EST CRCL DRUG DOSING (CG) 47.01 mL/min; POTASSIUM,K 4.1 mEq/L (3.5-5.1); PROTEIN TOTAL,TP 5.3 g/dl (6.4-8.2)
[2023-03-26] MEDS: Cefepime 2 GM in Sodium Chloride 0.9% 50 ML IV SCH (23:06)
[2023-03-26 23:13] LABS: C-REACTIVE PROTEIN 27.9 mg/dL (<1.0)
[2023-03-27] MEDS: Albuterol 0.083% 2.5 MG/3 ML Neb Soln NEB PRN ×2 (01:06→03:09)
[2023-03-27 01:51] LABS: BACTERIA,URINE FEW /hpf (FEW); MUCUS,URINE FEW /hpf (FEW); RBC,URINE 0-5 /hpf (0-5); WBC,URINE 0-5 /hpf (0-5)
[2023-03-27] MEDS: Acetaminophen/HYDROcodone 325-5 MG Tab PO PRN ×3 (05:37→20:34)
[2023-03-27] MEDS: Pantoprazole 40 MG Tab.CR PO SCH (05:37)
[2023-03-27] MEDS: Levothyroxine 125 MCG Tab PO SCH (05:37)
[2023-03-27] MEDS: Albuterol/Ipratropium 3.0-0.5 MG/3 ML Neb Soln NEB SCH ×4 (06:05→20:54)
[2023-03-27 06:28] LABS: BASOPHILS ABSOLUTE AUTO 0.02 K/mm3 (0.01-0.08); BASOPHILS PERCENT AUTO 0.2 % (0.1-1.2); EOSINOPHILS ABSOLUTE AUTO 0.08 K/mm3 (0.04-0.54); EOSINOPHILS PERCENT AUTO 0.8 (0.8-7.0); HEMATOCRIT 27.9 % (40.1-51.0); HEMOGLOBIN 8.8 gm/dl (13.7-17.5); IMMATURE GRAN ABSOLUTE AUTO 0.01 K/mm3 (0.00-0.10); IMMATURE GRAN PERCENT AUTO 0.1 % (<=1.0); LYMPHOCYTES ABSOLUTE AUTO 1.29 K/mm3 (1.32-3.57); LYMPHOCYTES PERCENT AUTO 12.1 % (21.8-53.1); MEAN CORPUSCULAR HEMOGLOBIN 31.5 pg (25.7-32.2); MEAN CORPUSCULAR HGB CONC 31.5 g/dl (32.2-35.5); MEAN PLATELET VOLUME 8.5 fl (9.4-12.3); MONOCYTES PERCENT AUTO 7.5 % (5.3-12.2); NEUTROPHILS ABSOLUTE AUTO 8.46 K/mm3 (1.78-5.38); NEUTROPHILS PERCENT AUTO 79.3 % (34.0-67.9); PLATELET COUNT,PLT 491 K/mm3 (163-337); RED BLOOD CELL COUNT 2.79 M/mm3 (4.63-6.08); WHITE BLOOD CELL COUNT,WBC 10.66 K/mm3 (4.23-9.07)
[2023-03-27 06:48] LABS: A/G RATIO 0.6 (1-2); ALBUMIN 2.1 g/dl (3.4-5.0); ANION GAP 9.2 (5-15); BILIRUBIN TOTAL 0.4 mg/dL (0.2-1.0); CALCIUM 8.9 mg/dL (8.5-10.1); CREATININE 0.8 mg/dL (0.7-1.3); EST CRCL DRUG DOSING (CG) 62.7 mL/min; MAGNESIUM 1.6 mg/dL (1.8-2.4); POTASSIUM,K 4.2 mEq/L (3.5-5.1); PROTEIN TOTAL,TP 5.7 g/dl (6.4-8.2)
[2023-03-27] MEDS ORDERED: Magnesium Sulfate/Water 2 GM in Premix Bag 1 BAG IV ONE (08:27)
[2023-03-27] MEDS: Cyclobenzaprine 10 MG Tab PO SCH ×2 (09:54→20:33)
[2023-03-27] MEDS: Gabapentin 100 MG Cap PO SCH ×3 (09:55→20:34)
[2023-03-27] MEDS: Apixaban 5 MG Tab PO SCH ×2 (09:55→20:33)
[2023-03-27] MEDS: Polyethylene Glycol 3350 Powder 17 GM Packet PO SCH (09:55)
[2023-03-27] MEDS: Sennosides 8.6 MG Tab PO SCH (09:55)
[2023-03-27] MEDS ORDERED: VANCOmycin 1.25 GM/250 ML 1.25 GM in Premix Bag 1 BAG IV SCH (14:47)
[2023-03-27] MEDS: Donepezil 10 MG Tab PO SCH (20:32)
[2023-03-27] MEDS: atorvaSTATin 20 MG Tab PO SCH (20:33)
[2023-03-27] MEDS: traZODone 50 MG Tab PO SCH (20:35)
[2023-03-27] MEDS: Cefepime 2 GM in Sodium Chloride 0.9% 50 ML IV SCH (22:23)
[2023-03-27] MEDS: VANCOmycin 1.25 GM/250 ML 1.25 GM in Premix Bag 1 BAG IV SCH (23:04)
[2023-03-28 05:24] LABS: BASOPHILS ABSOLUTE AUTO 0.01 K/mm3 (0.01-0.08); BASOPHILS PERCENT AUTO 0.1 % (0.1-1.2); EOSINOPHILS ABSOLUTE AUTO 0.25 K/mm3 (0.04-0.54); HEMATOCRIT 29.1 % (40.1-51.0); HEMOGLOBIN 9.2 gm/dl (13.7-17.5); IMMATURE GRAN ABSOLUTE AUTO 0.02 K/mm3 (0.00-0.10); IMMATURE GRAN PERCENT AUTO 0.2 % (<=1.0); LYMPHOCYTES ABSOLUTE AUTO 0.78 K/mm3 (1.32-3.57); LYMPHOCYTES PERCENT AUTO 9.3 % (21.8-53.1); MEAN CORPUSCULAR HEMOGLOBIN 31.6 pg (25.7-32.2); MEAN CORPUSCULAR HGB CONC 31.6 g/dl (32.2-35.5); MEAN PLATELET VOLUME 8.7 fl (9.4-12.3); MONOCYTES ABSOLUTE AUTO 0.53 K/mm3 (0.30-0.82); MONOCYTES PERCENT AUTO 6.3 % (5.3-12.2); NEUTROPHILS ABSOLUTE AUTO 6.77 K/mm3 (1.78-5.38); NEUTROPHILS PERCENT AUTO 81.1 % (34.0-67.9); PLATELET COUNT,PLT 543 K/mm3 (163-337); RED BLOOD CELL COUNT 2.91 M/mm3 (4.63-6.08); WHITE BLOOD CELL COUNT,WBC 8.36 K/mm3 (4.23-9.07)
[2023-03-28 05:55] LABS: A/G RATIO 0.6 (1-2); ALBUMIN 2.4 g/dl (3.4-5.0); ANION GAP 9.7 (5-15); BILIRUBIN TOTAL 0.4 mg/dL (0.2-1.0); BUN/CREATININE RATIO 17.5 (14-18); CREATININE 0.8 mg/dL (0.7-1.3); EST CRCL DRUG DOSING (CG) 62.7 mL/min; MAGNESIUM 1.7 mg/dL (1.8-2.4); POTASSIUM,K 4.7 mEq/L (3.5-5.1); PROTEIN TOTAL,TP 6.5 g/dl (6.4-8.2)
[2023-03-28 06:19] LABS: C-REACTIVE PROTEIN 23.5 mg/dL (<1.0)
[2023-03-28] MEDS: Levothyroxine 125 MCG Tab PO SCH (06:28)
[2023-03-28] MEDS: Pantoprazole 40 MG Tab.CR PO SCH (06:28)
[2023-03-28] MEDS: Albuterol/Ipratropium 3.0-0.5 MG/3 ML Neb Soln NEB SCH ×4 (06:33→20:41)
[2023-03-28] MEDS: Gabapentin 100 MG Cap PO SCH ×3 (10:09→21:07)
[2023-03-28] MEDS: Polyethylene Glycol 3350 Powder 17 GM Packet PO SCH ×2 (10:10→10:14)
[2023-03-28] MEDS: Sennosides 8.6 MG Tab PO SCH (10:10)
[2023-03-28] MEDS: Cyclobenzaprine 10 MG Tab PO SCH ×2 (10:10→21:06)
[2023-03-28] MEDS: Apixaban 5 MG Tab PO SCH ×2 (10:10→21:07)
[2023-03-28] MEDS: Acetaminophen/HYDROcodone 325-5 MG Tab PO PRN ×3 (10:55→21:04)
[2023-03-28] MEDS: diphenhydrAMINE 25 MG Cap PO PRN ×2 (13:13→21:07)
[2023-03-28] MEDS ORDERED: Hydrocortisone 1% Crm 30 GM Tube TOP PRN (14:44)
[2023-03-28] MEDS: Ondansetron 4 MG/2 ML SDV IV PRN (14:53)
[2023-03-28] MEDS: CARBIDOPA PO SCH (21:03)
[2023-03-28] MEDS: LEVODOPA PO SCH (21:03)
[2023-03-28] MEDS: traZODone 50 MG Tab PO SCH (21:03)
[2023-03-28] MEDS: atorvaSTATin 20 MG Tab PO SCH (21:06)
[2023-03-28] MEDS: Donepezil 10 MG Tab PO SCH (21:07)
[2023-03-28] MEDS ORDERED: Sodium Chloride 0.9% 250 ML ONE (22:50)
[2023-03-28] MEDS: VANCOmycin 1.25 GM/250 ML 1.25 GM in Premix Bag 1 BAG IV SCH (22:55)
[2023-03-28] MEDS: Cefepime 2 GM in Sodium Chloride 0.9% 50 ML IV SCH (22:57)
[2023-03-29 05:18] LABS: BASOPHILS ABSOLUTE AUTO 0.04 K/mm3 (0.01-0.08); BASOPHILS PERCENT AUTO 0.7 % (0.1-1.2); EOSINOPHILS ABSOLUTE AUTO 0.32 K/mm3 (0.04-0.54); EOSINOPHILS PERCENT AUTO 5.5 (0.8-7.0); HEMATOCRIT 30.8 % (40.1-51.0); HEMOGLOBIN 9.8 gm/dl (13.7-17.5); IMMATURE GRAN ABSOLUTE AUTO 0.02 K/mm3 (0.00-0.10); IMMATURE GRAN PERCENT AUTO 0.3 % (<=1.0); LYMPHOCYTES ABSOLUTE AUTO 1.33 K/mm3 (1.32-3.57); LYMPHOCYTES PERCENT AUTO 22.8 % (21.8-53.1); MEAN CORPUSCULAR HEMOGLOBIN 31.3 pg (25.7-32.2); MEAN CORPUSCULAR HGB CONC 31.8 g/dl (32.2-35.5); MEAN CORPUSCULAR VOLUME 98.4 fl (79.0-92.2); MEAN PLATELET VOLUME 8.5 fl (9.4-12.3); MONOCYTES ABSOLUTE AUTO 0.84 K/mm3 (0.30-0.82); MONOCYTES PERCENT AUTO 14.4 % (5.3-12.2); NEUTROPHILS ABSOLUTE AUTO 3.29 K/mm3 (1.78-5.38); NEUTROPHILS PERCENT AUTO 56.3 % (34.0-67.9); PLATELET COUNT,PLT 594 K/mm3 (163-337); RED BLOOD CELL COUNT 3.13 M/mm3 (4.63-6.08); WHITE BLOOD CELL COUNT,WBC 5.84 K/mm3 (4.23-9.07)
[2023-03-29 05:53] LABS: A/G RATIO 0.6 (1-2); ALBUMIN 2.6 g/dl (3.4-5.0); ANION GAP 13.1 (5-15); BILIRUBIN TOTAL 0.4 mg/dL (0.2-1.0); BUN/CREATININE RATIO 22.9 (14-18); CREATININE 0.7 mg/dL (0.7-1.3); EST CRCL DRUG DOSING (CG) 69.81 mL/min; MAGNESIUM 1.6 mg/dL (1.8-2.4); POTASSIUM,K 4.1 mEq/L (3.5-5.1)
[2023-03-29] MEDS: Levothyroxine 125 MCG Tab PO SCH (05:57)
[2023-03-29] MEDS: Pantoprazole 40 MG Tab.CR PO SCH (05:57)
[2023-03-29] MEDS: Albuterol/Ipratropium 3.0-0.5 MG/3 ML Neb Soln NEB SCH ×4 (06:05→21:17)
[2023-03-29 06:37] LABS: C-REACTIVE PROTEIN 19.8 mg/dL (<1.0)
[2023-03-29] MEDS: Acetaminophen/HYDROcodone 325-5 MG Tab PO PRN ×2 (09:10→16:59)
[2023-03-29] MEDS: Gabapentin 100 MG Cap PO SCH ×3 (09:10→21:57)
[2023-03-29] MEDS: Apixaban 5 MG Tab PO SCH ×2 (09:10→21:57)
[2023-03-29] MEDS: Sennosides 8.6 MG Tab PO SCH (09:10)
[2023-03-29] MEDS: Cyclobenzaprine 10 MG Tab PO SCH ×2 (09:11→21:56)
[2023-03-29] MEDS: Polyethylene Glycol 3350 Powder 17 GM Packet PO SCH (09:11)
[2023-03-29] MEDS: MIRABEGRON 25 MG PO SCH (09:11)
[2023-03-29] MEDS: VANCOmycin 750 MG/150 ML 750 MG in Premix Bag 1 BAG IV SCH ×2 (09:44→21:58)
[2023-03-29] MEDS: diphenhydrAMINE 25 MG Cap PO PRN (09:45)
[2023-03-29] MEDS: traZODone 50 MG Tab PO SCH (21:55)
[2023-03-29] MEDS: atorvaSTATin 20 MG Tab PO SCH (21:55)
[2023-03-29] MEDS: Donepezil 10 MG Tab PO SCH (21:57)
[2023-03-29] MEDS: LEVODOPA PO SCH (21:58)
[2023-03-29] MEDS: CARBIDOPA PO SCH (21:58)
[2023-03-29] MEDS: Cefepime 2 GM in Sodium Chloride 0.9% 50 ML IV SCH (23:35)
[2023-03-30 05:20] LABS: BASOPHILS ABSOLUTE AUTO 0.03 K/mm3 (0.01-0.08); BASOPHILS PERCENT AUTO 0.5 % (0.1-1.2); EOSINOPHILS ABSOLUTE AUTO 0.31 K/mm3 (0.04-0.54); EOSINOPHILS PERCENT AUTO 5.2 (0.8-7.0); HEMATOCRIT 32.1 % (40.1-51.0); HEMOGLOBIN 10.3 gm/dl (13.7-17.5); IMMATURE GRAN ABSOLUTE AUTO 0.03 K/mm3 (0.00-0.10); IMMATURE GRAN PERCENT AUTO 0.5 % (<=1.0); LYMPHOCYTES ABSOLUTE AUTO 1.56 K/mm3 (1.32-3.57); MEAN CORPUSCULAR HEMOGLOBIN 31.4 pg (25.7-32.2); MEAN CORPUSCULAR HGB CONC 32.1 g/dl (32.2-35.5); MEAN CORPUSCULAR VOLUME 97.9 fl (79.0-92.2); MEAN PLATELET VOLUME 8.8 fl (9.4-12.3); MONOCYTES ABSOLUTE AUTO 0.82 K/mm3 (0.30-0.82); MONOCYTES PERCENT AUTO 13.7 % (5.3-12.2); NEUTROPHILS ABSOLUTE AUTO 3.25 K/mm3 (1.78-5.38); NEUTROPHILS PERCENT AUTO 54.1 % (34.0-67.9); PLATELET COUNT,PLT 644 K/mm3 (163-337); RED BLOOD CELL COUNT 3.28 M/mm3 (4.63-6.08)
[2023-03-30 05:42] LABS: A/G RATIO 0.6 (1-2); ALBUMIN 2.7 g/dl (3.4-5.0); ANION GAP 14.3 (5-15); BILIRUBIN TOTAL 0.3 mg/dL (0.2-1.0); BUN/CREATININE RATIO 27.1 (14-18); CALCIUM 9.3 mg/dL (8.5-10.1); CREATININE 0.7 mg/dL (0.7-1.3); EST CRCL DRUG DOSING (CG) 69.81 mL/min; MAGNESIUM 1.6 mg/dL (1.8-2.4); POTASSIUM,K 4.3 mEq/L (3.5-5.1); PROTEIN TOTAL,TP 7.2 g/dl (6.4-8.2); VANCOMYCIN RANDOM 22.7 ug/mL
[2023-03-30 05:54] LABS: C-REACTIVE PROTEIN 10.3 mg/dL (<1.0)
[2023-03-30] MEDS: Albuterol/Ipratropium 3.0-0.5 MG/3 ML Neb Soln NEB SCH ×2 (06:31→10:07)
[2023-03-30] MEDS: Pantoprazole 40 MG Tab.CR PO SCH (06:46)
[2023-03-30] MEDS: Levothyroxine 125 MCG Tab PO SCH (06:46)
[2023-03-30] MEDS ORDERED: Cefepime 2 GM in Sodium Chloride 0.9% 50 ML IV SCH (09:00)
[2023-03-30] MEDS: Polyethylene Glycol 3350 Powder 17 GM Packet PO SCH (09:36)
[2023-03-30] MEDS: Cyclobenzaprine 10 MG Tab PO SCH (09:46)
[2023-03-30] MEDS: Sennosides 8.6 MG Tab PO SCH (09:47)
[2023-03-30] MEDS: Apixaban 5 MG Tab PO SCH (09:47)
[2023-03-30] MEDS: Gabapentin 100 MG Cap PO SCH (09:47)
[2023-03-30] MEDS: MIRABEGRON 25 MG PO SCH (10:17)
[2023-03-30] MEDS: VANCOmycin 750 MG/150 ML 750 MG in Premix Bag 1 BAG IV SCH (10:19)
[2023-03-30] MEDS ORDERED: Magnesium Oxide 400 MG Tab PO ONE (12:30)
[2023-03-30 13:48] VITALS: BP 122/69; PULSE 65
== END 2023-03-30 13:00 | DRG 871 ==
LOC: JD.ED 09:07 → JD.MS 13:27 → JD.ICU 22:34 → JD.MS 03-29 10:27
PROVIDERS: ADMIT Internal Medicine; ATTEND Hospitalist
PROC: 3E03329 Introduction of Other Anti-infective into Peripheral Vein, Percutaneous Approach (ICD-10-PCS; principal; 2023-03-26)
PROC: 3E033XZ Introduction of Vasopressor into Peripheral Vein, Percutaneous Approach (ICD-10-PCS; 2023-03-27)
DX: A41.02 Sepsis due to Methicillin resistant Staphylococcus aureus (principal); J69.0 Pneumonitis due to inhalation of food and vomit; J18.9 Pneumonia, unspecified organism; R65.21 Severe sepsis with septic shock; E86.0 Dehydration; G82.20 Paraplegia, unspecified; G20 Parkinson's disease; Z66 Do not resuscitate; I10 Essential (primary) hypertension; E78.00 Pure hypercholesterolemia, unspecified; K59.09 Other constipation; K21.9 Gastro-esophageal reflux disease without esophagitis; Z93.3 Colostomy status; E03.9 Hypothyroidism, unspecified; Z96.619 Presence of unspecified artificial shoulder joint; I95.9 Hypotension, unspecified; R15.9 Full incontinence of feces; E83.42 Hypomagnesemia; Z88.1 Allergy status to other antibiotic agents; Z88.8 Allergy status to other drugs, medicaments and biological substances; Z91.09 Other allergy status, other than to drugs and biological substances; Z79.899 Other long term (current) drug therapy; Z79.01 Long term (current) use of anticoagulants; Z79.82 Long term (current) use of aspirin; Z90.89 Acquired absence of other organs; Z98.49 Cataract extraction status, unspecified eye; Z98.1 Arthrodesis status; Z98.890 Other specified postprocedural states; Z93.4 Other artificial openings of gastrointestinal tract status; Z97.8 Presence of other specified devices; Z99.81 Dependence on supplemental oxygen; Z86.19 Personal history of other infectious and parasitic diseases; Z86.718 Personal history of other venous thrombosis and embolism; Z95.828 Presence of other vascular implants and grafts; Z89.511 Acquired absence of right leg below knee
CPT/HCPCS: 36415; 71045; 71275; 80053; 83605; 83880; 84484; 85007; 85027; 85379; 86140; 87040 ×2; 93005; 94640; J2543; J3490 ×3; J7120 ×3; Q9967; 80202; 81001; 83735; 85025; 86850; 86900; 86901; 87086; 87088; 87186; 87641; 92610-GN; 93010; 94667; 94668; 94761; 97162-GP; 97165-GO; 99223; 99232; 99233; 99239; 99285; A9270-GY; J0692; J2405; J3370; J3475; J7030; J7050; J7060; J7620-GY

== ENCOUNTER 2023-09-08 11:54 | Emergency (ER) | payer BC, MEDICARE ==
[2023-09-08 12:20] VITALS: BP 197/94; PULSE 80
[2023-09-08] MEDS ORDERED: Sulfamethoxazole/Trimethoprim 800-160 MG Tab PO ONE (13:20)
== END 2023-09-08 13:30 | disposition home or self-care (01) ==
LOC: JD.ED 11:54
DX: T83.091A Other mechanical complication of indwelling urethral catheter, initial encounter (principal); E03.9 Hypothyroidism, unspecified; I10 Essential (primary) hypertension; E78.00 Pure hypercholesterolemia, unspecified; Z79.01 Long term (current) use of anticoagulants; Z79.899 Other long term (current) drug therapy; Z79.82 Long term (current) use of aspirin; Z88.0 Allergy status to penicillin; Z88.1 Allergy status to other antibiotic agents; Z91.048 Other nonmedicinal substance allergy status; Z88.8 Allergy status to other drugs, medicaments and biological substances
CPT/HCPCS: 51702; 51798; 87086; 99283; A9270

== ENCOUNTER 2023-12-21 17:49 | Emergency (ER) | payer MEDICARE | END 2023-12-21 18:08 | disposition left against medical advice (07) | LOC: JD.ED 17:49 | DX: Z53.21 Procedure and treatment not carried out due to patient leaving prior to being seen by health care provider (principal) ==

== ENCOUNTER 2024-03-06 12:29 | Emergency (ER) | payer MEDICARE ==
[2024-03-06 14:38] LABS: BASOPHILS ABSOLUTE AUTO 0.1 K/mm3 (0.0-0.2); BASOPHILS PERCENT AUTO 0.5 % (0.0-1.0); EOSINOPHILS ABSOLUTE AUTO 0.1 K/mm3 (0.0-0.4); EOSINOPHILS PERCENT AUTO 1.1 % (0.0-6.0); HEMATOCRIT 38.3 % (42.0-52.0); HEMOGLOBIN 12.9 gm/dl (14.0-18.0); IMMATURE GRAN ABSOLUTE AUTO 0.05 K/mm3 (0.00-0.05); IMMATURE GRAN PERCENT AUTO 0.5 % (0.0-0.4); LYMPHOCYTES ABSOLUTE AUTO 1.5 K/mm3 (1.0-4.8); LYMPHOCYTES PERCENT AUTO 15.6 % (24.0-44.0); MEAN CORPUSCULAR HEMOGLOBIN 33.9 pg (28.0-32.0); MEAN CORPUSCULAR HGB CONC 33.7 g/dl (32.0-36.0); MEAN CORPUSCULAR VOLUME 100.5 fl (83.0-99.0); MEAN PLATELET VOLUME 8.8 fl (9.4-12.4); MONOCYTES ABSOLUTE AUTO 0.8 K/mm3 (0.0-0.8); MONOCYTES PERCENT AUTO 7.7 % (0.0-8.0); NEUTROPHILS ABSOLUTE AUTO 7.2 K/mm3 (1.8-7.7); NEUTROPHILS PERCENT AUTO 74.6 % (41.0-71.0); PLATELET COUNT,PLT 459 K/mm3 (150-400); RED BLOOD CELL COUNT 3.81 M/mm3 (4.52-5.90); WHITE BLOOD CELL COUNT,WBC 9.71 K/mm3 (3.9-11.3)
[2024-03-06] MEDS: Sodium Chloride 0.9% 10 ML Syringe FLUSH PRN (14:47)
[2024-03-06 14:54] LABS: INR 0.98; PROTHROMBIN TIME 10.4 SECONDS (9.7-12.0)
[2024-03-06 14:56] LABS: PTT,PARTIAL THROMBOPLSTIN TIME 28.8 SECONDS (21.7-31.4)
[2024-03-06] MEDS: Heparin Sodium 5,000 Units/ML Vial IVPUSH ONE (14:58)
[2024-03-06 14:59] LABS: ALBUMIN 3.8 g/dl (3.4-5.0); ANION GAP 12.3 (5-15); BILIRUBIN TOTAL 0.5 mg/dL (0.2-1.0); BUN/CREATININE RATIO 18.8 (14-18); CALCIUM 9.4 mg/dL (8.5-10.1); CREATININE 0.8 mg/dL (0.7-1.3); EST CRCL DRUG DOSING (CG) 65.98 mL/min; POTASSIUM,K 4.3 mEq/L (3.5-5.1); PROTEIN TOTAL,TP 7.7 g/dl (6.4-8.2)
[2024-03-06] MEDS: Heparin Sodium/D5W 25,000 UNITS/500 ML BAG IV SCH (15:01)
[2024-03-06] MEDS ORDERED: Melatonin 3 MG Tab PO PRN (18:09)
[2024-03-06] MEDS ORDERED: Non-Formulary Medication 1 Each (Hydrocodone/Acetaminophen 1 EACH Tablet) PO PRN (18:09)
[2024-03-06] MEDS ORDERED: Acetaminophen 325 MG Tab PO PRN (18:09)
[2024-03-06] MEDS ORDERED: Ondansetron 4 MG Tab.DIS PO PRN (18:09)
[2024-03-06] MEDS: Pantoprazole 40 MG Vial IVPUSH ONE (18:51)
[2024-03-06] MEDS: Donepezil 10 MG Tab PO SCH (21:03)
[2024-03-06] MEDS: atorvaSTATin 20 MG Tab PO SCH (21:03)
[2024-03-06] MEDS: Gabapentin 100 MG Cap PO SCH (21:03)
[2024-03-06] MEDS: Cyclobenzaprine 10 MG Tab PO SCH (21:03)
[2024-03-06] MEDS: PSYLLIUM HUSK 0.52 GM PO SCH (21:04)
[2024-03-06] MEDS: Non-Formulary Medication 1 Each (Trazodone Hcl [Trazodone Hcl] 100 MG Tablet) PO SCH (21:04)
[2024-03-06] MEDS: Non-Formulary Medication 1 Each (Sennosides [Senna] 8.6 MG Tablet) PO SCH (21:04)
[2024-03-06] MEDS: Carbidopa/Levodopa 25-250 MG Tab PO SCH (21:04)
[2024-03-07 02:13] VITALS: BP 135/85; PULSE 80
[2024-03-07] MEDS ORDERED: Levothyroxine 100 MCG Tab PO SCH (06:00)
[2024-03-07] MEDS ORDERED: Losartan 25 MG Tab PO SCH (09:00)
[2024-03-07] MEDS ORDERED: Non-Formulary Medication 1 Each (Pantoprazole Sodium 40 MG Tablet.Dr) PO SCH (09:00)
[2024-03-07] MEDS ORDERED: Furosemide 20 MG Tab PO SCH (09:00)
[2024-03-07] MEDS ORDERED: Mirabegron 25 MG Tab Extended Release PO SCH (09:00)
[2024-03-07] MEDS ORDERED: Polyethylene Glycol 3350 Powder 17 GM Packet PO SCH (09:00)
[2024-03-07] MEDS ORDERED: Non-Formulary Medication 1 Each (Ferrous Sulfate 325 MG Tablet) PO SCH (18:09)
== END 2024-03-07 01:00 ==
LOC: JD.ED 12:29
DX: I82.622 Acute embolism and thrombosis of deep veins of left upper extremity (principal); G20.A1 Parkinson's disease without dyskinesia, without mention of fluctuations; G82.20 Paraplegia, unspecified; Z86.718 Personal history of other venous thrombosis and embolism; Z87.19 Personal history of other diseases of the digestive system; I10 Essential (primary) hypertension; E78.00 Pure hypercholesterolemia, unspecified; E03.9 Hypothyroidism, unspecified; Z88.0 Allergy status to penicillin; Z88.1 Allergy status to other antibiotic agents; Z91.048 Other nonmedicinal substance allergy status; Z88.8 Allergy status to other drugs, medicaments and biological substances; Z79.890 Hormone replacement therapy; Z79.899 Other long term (current) drug therapy; Z87.891 Personal history of nicotine dependence; Z45.2 Encounter for adjustment and management of vascular access device
CPT/HCPCS: 36415; 80053; 85025; 85610; 85730; 93971-26-LT; 93971-LT; 96365; 96366; 96375; 96376; 99285; 99285-25; A9270-GY; C9113; J1644; J3490

== ENCOUNTER 2024-06-10 11:22 | Inpatient (IN) | payer MEDICARE, OTHER ==
[2024-06-10] MEDS ORDERED: Sodium Chloride 0.9% 10 ML Syringe FLUSH PRN (12:06)
[2024-06-10] MEDS: Cefepime 2 GM in Sodium Chloride 0.9% 50 ML IV ONE (13:21)
[2024-06-10] MEDS: Sodium Chloride 0.9% 1,000 ML IV STA (13:23)
[2024-06-10 13:56] LABS: APPEARANCE,URINE CLEAR (Clear); BILIRUBIN,URINE NEGATIVE (Negative); COLOR,URINE YELLOW (Yellow); GLUCOSE,URINE TRACE (Negative); KETONES,URINE NEGATIVE (Negative); LEUKOCYTE ESTERASE,URINE TRACE (Negative); NITRITE,URINE POSITIVE (Negative); OCCULT BLOOD,URINE TRACE-INTACT (Negative); PROTEIN,URINE NEGATIVE (Negative); UROBILINOGEN,URINE 0.2 (0.2-1.0)
[2024-06-10 14:02] LABS: BACTERIA,URINE FEW /hpf (FEW); MUCUS,URINE FEW /hpf (FEW)
[2024-06-10 14:12] LABS: BASOPHILS ABSOLUTE AUTO 0.1 K/mm3 (0.0-0.2); BASOPHILS PERCENT AUTO 0.5 % (0.0-1.0); EOSINOPHILS ABSOLUTE AUTO 0.1 K/mm3 (0.0-0.4); EOSINOPHILS PERCENT AUTO 0.5 % (0.0-6.0); HEMATOCRIT 43.2 % (42.0-52.0); HEMOGLOBIN 14.1 gm/dl (14.0-18.0); IMMATURE GRAN ABSOLUTE AUTO 0.06 K/mm3 (0.00-0.05); IMMATURE GRAN PERCENT AUTO 0.4 % (0.0-0.4); LYMPHOCYTES ABSOLUTE AUTO 1.7 K/mm3 (1.0-4.8); MEAN CORPUSCULAR HGB CONC 32.6 g/dl (32.0-36.0); MEAN PLATELET VOLUME 9.2 fl (9.4-12.4); MONOCYTES ABSOLUTE AUTO 0.7 K/mm3 (0.0-0.8); MONOCYTES PERCENT AUTO 4.9 % (0.0-8.0); NEUTROPHILS ABSOLUTE AUTO 11.8 K/mm3 (1.8-7.7); NEUTROPHILS PERCENT AUTO 81.7 % (41.0-71.0); RED BLOOD CELL COUNT 4.41 M/mm3 (4.52-5.90); WHITE BLOOD CELL COUNT,WBC 14.47 K/mm3 (3.9-11.3)
[2024-06-10 14:13] LABS: PLATELET COUNT,PLT 616 K/mm3 (150-400)
[2024-06-10 14:35] LABS: A/G RATIO 0.7 (1-2); ALANINE AMINOTRANSFERASE,ALT 33 U/L (16-63); ALBUMIN 3.5 g/dl (3.4-5.0); ALKALINE PHOSPHATASE 130 U/L (46-116); ANION GAP 14.5 (5-15); ASPARTATE AMNIOTRANSFERASE,AST 19 U/L (15-37); BILIRUBIN TOTAL 0.3 mg/dL (0.2-1.0); BLOOD UREA NITROGEN,BUN 16 mg/dL (7-18); CALCIUM 10.1 mg/dL (8.5-10.1); CARBON DIOXIDE,CO2 30 mEq/L (21-32); CHLORIDE,CL 98 mEq/L (98-107); ESTIMATED GFR 78 mL/min (>60); GLUCOSE RANDOM 93 mg/dL (70-99); PROTEIN TOTAL,TP 8.2 g/dl (6.4-8.2); SODIUM,NA 138 mEq/L (136-145)
[2024-06-10 14:36] LABS: C-REACTIVE PROTEIN > 25.00 mg/dL (<0.30); POTASSIUM,K 4.5 mEq/L (3.5-5.1)
[2024-06-10 15:35] LABS: LACTIC ACID 0.7 mmol/L (0.4-2.0)
[2024-06-10] MEDS ORDERED: Acetaminophen 325 MG Tab PO PRN (16:00)
[2024-06-10 17:09] LABS: TSH 0.43 uIU/mL (0.358-3.74)
[2024-06-10] MEDS: Phenazopyridine 95 MG Tab PO ONE (17:50)
[2024-06-10] MEDS: Carbidopa/Levodopa 25-250 MG Tab PO SCH (20:05)
[2024-06-10] MEDS: Sucralfate Suspension 1 GM/10 ML Cup PO SCH (20:05)
[2024-06-10] MEDS: Cyclobenzaprine 10 MG Tab PO SCH (20:06)
[2024-06-10] MEDS: Gabapentin 100 MG Cap PO SCH (20:07)
[2024-06-10] MEDS: Donepezil 10 MG Tab PO SCH (20:07)
[2024-06-10] MEDS: atorvaSTATin 20 MG Tab PO SCH (20:07)
[2024-06-10] MEDS: Pantoprazole 40 MG Tab.CR PO SCH (20:07)
[2024-06-10] MEDS: Polyethylene Glycol 3350 Powder 17 GM Packet PO ONE (20:07)
[2024-06-10] MEDS: traZODone 50 MG Tab PO SCH (20:07)
[2024-06-10] MEDS: Cefepime 2 GM in Sodium Chloride 0.9% 50 ML IV SCH (20:08)
[2024-06-10] MEDS: Acetaminophen/HYDROcodone 325-5 MG Tab PO PRN (20:10)
[2024-06-10] MEDS: Sennosides 8.6 MG Tab PO SCH (22:03)
[2024-06-11 06:21] LABS: BASOPHILS ABSOLUTE AUTO 0.1 K/mm3 (0.0-0.2); BASOPHILS PERCENT AUTO 0.7 % (0.0-1.0); EOSINOPHILS ABSOLUTE AUTO 0.1 K/mm3 (0.0-0.4); EOSINOPHILS PERCENT AUTO 1.2 % (0.0-6.0); HEMATOCRIT 35.3 % (42.0-52.0); IMMATURE GRAN ABSOLUTE AUTO 0.08 K/mm3 (0.00-0.05); IMMATURE GRAN PERCENT AUTO 0.8 % (0.0-0.4); LYMPHOCYTES ABSOLUTE AUTO 1.8 K/mm3 (1.0-4.8); LYMPHOCYTES PERCENT AUTO 17.6 % (24.0-44.0); MEAN CORPUSCULAR HEMOGLOBIN 32.5 pg (28.0-32.0); MEAN CORPUSCULAR HGB CONC 33.7 g/dl (32.0-36.0); MEAN CORPUSCULAR VOLUME 96.4 fl (83.0-99.0); MEAN PLATELET VOLUME 8.6 fl (9.4-12.4); MONOCYTES ABSOLUTE AUTO 0.8 K/mm3 (0.0-0.8); MONOCYTES PERCENT AUTO 8.2 % (0.0-8.0); NEUTROPHILS ABSOLUTE AUTO 7.2 K/mm3 (1.8-7.7); NEUTROPHILS PERCENT AUTO 71.5 % (41.0-71.0); RED BLOOD CELL COUNT 3.66 M/mm3 (4.52-5.90); WHITE BLOOD CELL COUNT,WBC 10.12 K/mm3 (3.9-11.3)
[2024-06-11 06:32] LABS: HEMOGLOBIN 11.9 gm/dl (14.0-18.0); PLATELET COUNT,PLT 532 K/mm3 (150-400)
[2024-06-11 06:47] LABS: A/G RATIO 0.6 (1-2); ALBUMIN 2.5 g/dl (3.4-5.0); BILIRUBIN TOTAL 0.3 mg/dL (0.2-1.0); C-REACTIVE PROTEIN 16.35 mg/dL (<0.30); CALCIUM 9.3 mg/dL (8.5-10.1); EST CRCL DRUG DOSING (CG) 52.43 mL/min; PROTEIN TOTAL,TP 6.8 g/dl (6.4-8.2)
[2024-06-11] MEDS: Levothyroxine 100 MCG Tab PO SCH (06:57)
[2024-06-11] MEDS ORDERED: Linaclotide [Linzess] 290 MCG Capsule PO SCH (08:00)
[2024-06-11] MEDS: Mirabegron 25 MG Tab Extended Release PO SCH (08:41)
[2024-06-11] MEDS: Furosemide 20 MG Tab PO SCH (08:41)
[2024-06-11] MEDS: Magnesium Hydroxide 400 MG/5 ML Susp 30 ML Cup PO SCH (10:59)
[2024-06-11] MEDS: Phenazopyridine 95 MG Tab PO SCH (14:42)
[2024-06-11] MEDS: Polyethylene Glycol 3350 Powder 17 GM Packet PO SCH (17:37)
[2024-06-11] MEDS: Apixaban 5 MG Tab PO SCH (20:59)
[2024-06-11] MEDS: Psyllium Husk Powder Sugar Free 5.85 GM Packet PO SCH (21:08)
[2024-06-12 05:38] LABS: BASOPHILS ABSOLUTE AUTO 0.1 K/mm3 (0.0-0.2); BASOPHILS PERCENT AUTO 0.8 % (0.0-1.0); EOSINOPHILS ABSOLUTE AUTO 0.2 K/mm3 (0.0-0.4); EOSINOPHILS PERCENT AUTO 1.8 % (0.0-6.0); HEMATOCRIT 36.4 % (42.0-52.0); HEMOGLOBIN 12.2 gm/dl (14.0-18.0); IMMATURE GRAN PERCENT AUTO 0.9 % (0.0-0.4); LYMPHOCYTES ABSOLUTE AUTO 1.9 K/mm3 (1.0-4.8); LYMPHOCYTES PERCENT AUTO 18.1 % (24.0-44.0); MEAN CORPUSCULAR HEMOGLOBIN 31.6 pg (28.0-32.0); MEAN CORPUSCULAR HGB CONC 33.5 g/dl (32.0-36.0); MEAN CORPUSCULAR VOLUME 94.3 fl (83.0-99.0); MEAN PLATELET VOLUME 9.2 fl (9.4-12.4); MONOCYTES ABSOLUTE AUTO 0.9 K/mm3 (0.0-0.8); MONOCYTES PERCENT AUTO 8.7 % (0.0-8.0); NEUTROPHILS ABSOLUTE AUTO 7.4 K/mm3 (1.8-7.7); NEUTROPHILS PERCENT AUTO 69.7 % (41.0-71.0); PLATELET COUNT,PLT 574 K/mm3 (150-400); RED BLOOD CELL COUNT 3.86 M/mm3 (4.52-5.90); WHITE BLOOD CELL COUNT,WBC 10.58 K/mm3 (3.9-11.3)
[2024-06-12 06:00] LABS: A/G RATIO 0.6 (1-2); ALBUMIN 2.7 g/dl (3.4-5.0); BILIRUBIN TOTAL 0.3 mg/dL (0.2-1.0); BUN/CREATININE RATIO 18.6 (14-18); C-REACTIVE PROTEIN 10.07 mg/dL (<0.30); CALCIUM 9.7 mg/dL (8.5-10.1); CREATININE 0.7 mg/dL (0.7-1.3); EST CRCL DRUG DOSING (CG) 75.07 mL/min; PROTEIN TOTAL,TP 6.9 g/dl (6.4-8.2)
[2024-06-12] MEDS ORDERED: Acetaminophen 325 MG Tab PO PRN (14:06)
[2024-06-13] MEDS: Cefepime 2 GM in Sodium Chloride 0.9% 100 ML IV SCH (20:11)
[2024-06-15 13:20] VITALS: BP 141/86; PULSE 87
== END 2024-06-15 12:26 | disposition home or self-care (01) | DRG 699 ==
LOC: JD.ED 11:22 → JD.MS 16:00
PROVIDERS: ADMIT Family Medicine; ATTEND Internal Medicine
DX: T83.511A Infection and inflammatory reaction due to indwelling urethral catheter, initial encounter (principal); G82.20 Paraplegia, unspecified; Z16.29 Resistance to other single specified antibiotic; Z16.23 Resistance to quinolones and fluoroquinolones; N39.0 Urinary tract infection, site not specified; T83.010A Breakdown (mechanical) of cystostomy catheter, initial encounter; I10 Essential (primary) hypertension; E78.00 Pure hypercholesterolemia, unspecified; Z88.2 Allergy status to sulfonamides; Z91.048 Other nonmedicinal substance allergy status; Z66 Do not resuscitate; Z88.0 Allergy status to penicillin; G47.00 Insomnia, unspecified; E03.9 Hypothyroidism, unspecified; D64.9 Anemia, unspecified; G20.A1 Parkinson's disease without dyskinesia, without mention of fluctuations; H54.7 Unspecified visual loss; N31.9 Neuromuscular dysfunction of bladder, unspecified; B96.20 Unspecified Escherichia coli [E. coli] as the cause of diseases classified elsewhere; B96.5 Pseudomonas (aeruginosa) (mallei) (pseudomallei) as the cause of diseases classified elsewhere; Z88.1 Allergy status to other antibiotic agents; Z88.8 Allergy status to other drugs, medicaments and biological substances; Z98.49 Cataract extraction status, unspecified eye; Z90.89 Acquired absence of other organs; Z79.01 Long term (current) use of anticoagulants; Z79.899 Other long term (current) drug therapy; Z96.619 Presence of unspecified artificial shoulder joint; Z86.718 Personal history of other venous thrombosis and embolism; Z79.890 Hormone replacement therapy
CPT/HCPCS: 36415; 80053; 81001; 83605; 84443; 85025; 86140; 87040 ×2; 87086; 87088; 87186; 96361; 96365; 99285; J0692; J3490; J7030; 51702; A9270-GY

== ENCOUNTER 2024-09-01 20:21 | Emergency (ER) | payer MEDICARE ==
[2024-09-01 21:25] LABS: APPEARANCE,URINE CLOUDY (Clear); BILIRUBIN,URINE NEGATIVE (Negative); GLUCOSE,URINE NEGATIVE (Negative); NITRITE,URINE NEGATIVE (Negative); UROBILINOGEN,URINE 0.2 (0.2-1.0)
[2024-09-01 21:50] LABS: COLOR,URINE AMBER (Yellow); KETONES,URINE NEGATIVE (Negative); LEUKOCYTE ESTERASE,URINE 1+ (Negative); OCCULT BLOOD,URINE 3+ (Negative); PH,URINE 8.5 (5.0-8.0); PROTEIN,URINE 3+ (Negative)
[2024-09-01 22:13] LABS: BACTERIA,URINE MANY /hpf (FEW); MUCUS,URINE FEW /hpf (FEW); RBC,URINE TOO NUMEROUS TO CNT /hpf (0-5); SQUAMOUS EPITHELIAL CELLS,UR 0-5 /hpf (0-5)
[2024-09-02] MEDS: cefTRIAXone 1 GM Vial IM ONE (01:53)
[2024-09-02 02:10] VITALS: BP 130/85; PULSE 80
== END 2024-09-02 02:00 | disposition hospice, home (50) ==
LOC: JD.ED 20:21
DX: T83.091A Other mechanical complication of indwelling urethral catheter, initial encounter (principal); R82.90 Unspecified abnormal findings in urine; I10 Essential (primary) hypertension; E78.00 Pure hypercholesterolemia, unspecified; E03.9 Hypothyroidism, unspecified; Z79.899 Other long term (current) drug therapy; Z79.01 Long term (current) use of anticoagulants; Z79.890 Hormone replacement therapy; Z88.8 Allergy status to other drugs, medicaments and biological substances; Z88.0 Allergy status to penicillin; Z88.1 Allergy status to other antibiotic agents; X58.XXXA Exposure to other specified factors, initial encounter
CPT/HCPCS: 51702; 81001; 87086; 87088; 87186; 96372; 99283; J0696

== ENCOUNTER 2024-10-13 16:46 | Emergency (ER) | payer MEDICARE, OTHER ==
[2024-10-13 17:04] VITALS: PULSE 85
[2024-10-13 17:42] LABS: APPEARANCE,URINE SLT CLOUDY (Clear); BILIRUBIN,URINE NEGATIVE (Negative); COLOR,URINE YELLOW (Yellow); GLUCOSE,URINE NEGATIVE (Negative); KETONES,URINE NEGATIVE (Negative); LEUKOCYTE ESTERASE,URINE TRACE (Negative); NITRITE,URINE NEGATIVE (Negative); OCCULT BLOOD,URINE 2+ (Negative); PH,URINE 8.5 (5.0-8.0); PROTEIN,URINE TRACE (Negative); UROBILINOGEN,URINE 0.2 (0.2-1.0)
[2024-10-13 17:52] LABS: RBC,URINE 75-100 /hpf (0-5)
[2024-10-13 17:53] LABS: BACTERIA,URINE MODERATE /hpf (FEW); MUCUS,URINE NOT SEEN /hpf (FEW); SQUAMOUS EPITHELIAL CELLS,UR 0-5 /hpf (0-5)
[2024-10-13 18:39] VITALS: BP 135/100
== END 2024-10-13 18:25 | disposition home or self-care (01) ==
LOC: JD.ED 16:46
DX: T83.038A Leakage of other urinary catheter, initial encounter (principal); I10 Essential (primary) hypertension; E78.00 Pure hypercholesterolemia, unspecified; E03.9 Hypothyroidism, unspecified; Z79.899 Other long term (current) drug therapy; Z79.01 Long term (current) use of anticoagulants; Z88.0 Allergy status to penicillin; Z88.1 Allergy status to other antibiotic agents; Z88.8 Allergy status to other drugs, medicaments and biological substances; Z91.048 Other nonmedicinal substance allergy status
CPT/HCPCS: 51702; 51798; 81001; 87086; 87088; 87186; 99283

== ENCOUNTER 2024-10-16 11:57 | Emergency (ER) | payer MEDICARE ==
[2024-10-16 12:42] VITALS: BP 158/85; PULSE 85
[2024-10-16] MEDS: Bacitracin Oint 15 GM Tube TOP ONE (14:03)
[2024-10-16] MEDS: Doxycycline Monohydrate 100 MG Cap PO ONE (14:04)
== END 2024-10-16 14:36 | disposition home or self-care (01) ==
LOC: JD.ED 11:57
DX: T83.511A Infection and inflammatory reaction due to indwelling urethral catheter, initial encounter (principal); N39.0 Urinary tract infection, site not specified; T81.31XA Disruption of external operation (surgical) wound, not elsewhere classified, initial encounter; I10 Essential (primary) hypertension; E78.00 Pure hypercholesterolemia, unspecified; E03.9 Hypothyroidism, unspecified; Z90.89 Acquired absence of other organs; Z88.0 Allergy status to penicillin; Z88.1 Allergy status to other antibiotic agents; Z88.8 Allergy status to other drugs, medicaments and biological substances; Z91.048 Other nonmedicinal substance allergy status; Z79.01 Long term (current) use of anticoagulants; Z79.890 Hormone replacement therapy; Z79.899 Other long term (current) drug therapy
CPT/HCPCS: 99283; A9270; 99284

== ENCOUNTER 2024-10-18 11:03 | Emergency (ER) | payer MEDICARE, OTHER ==
[2024-10-18] MEDS ORDERED: Sodium Chloride 0.9% 500 ML IV ONE (11:04)
[2024-10-18] MEDS: Acetaminophen 325 MG Tab PO ONE (12:30)
[2024-10-18] MEDS: Ondansetron 4 MG/2 ML SDV IVPUSH ONE (12:30)
[2024-10-18] MEDS: Sulfamethoxazole/Trimethoprim 800-160 MG Tab PO ONE (12:31)
[2024-10-18] MEDS: Sodium Chloride 0.9% 500 ML IV ONE (12:33)
[2024-10-18] MEDS: Linezolid 600 MG/300 ML 600 MG in Premix Bag 1 BAG IV ONE (12:33)
[2024-10-18 12:38] LABS: BASOPHILS ABSOLUTE AUTO 0.1 K/mm3 (0.0-0.2); BASOPHILS PERCENT AUTO 1.1 % (0.0-1.0); EOSINOPHILS ABSOLUTE AUTO 0.2 K/mm3 (0.0-0.4); EOSINOPHILS PERCENT AUTO 3.3 % (0.0-6.0); HEMATOCRIT 43.2 % (42.0-52.0); HEMOGLOBIN 14.7 gm/dl (14.0-18.0); IMMATURE GRAN ABSOLUTE AUTO 0.03 K/mm3 (0.00-0.05); IMMATURE GRAN PERCENT AUTO 0.4 % (0.0-0.4); LYMPHOCYTES ABSOLUTE AUTO 2.3 K/mm3 (1.0-4.8); LYMPHOCYTES PERCENT AUTO 32.2 % (24.0-44.0); MEAN CORPUSCULAR HEMOGLOBIN 32.3 pg (28.0-32.0); MEAN CORPUSCULAR VOLUME 94.9 fl (83.0-99.0); MEAN PLATELET VOLUME 8.2 fl (9.4-12.4); MONOCYTES ABSOLUTE AUTO 0.6 K/mm3 (0.0-0.8); MONOCYTES PERCENT AUTO 8.6 % (0.0-8.0); NEUTROPHILS ABSOLUTE AUTO 3.8 K/mm3 (1.8-7.7); NEUTROPHILS PERCENT AUTO 54.4 % (41.0-71.0); PLATELET COUNT,PLT 559 K/mm3 (150-400); RED BLOOD CELL COUNT 4.55 M/mm3 (4.52-5.90); WHITE BLOOD CELL COUNT,WBC 6.99 K/mm3 (3.9-11.3)
[2024-10-18 13:07] LABS: ALBUMIN 3.9 g/dl (3.4-5.0); ANION GAP 11.3 (5-15); BILIRUBIN TOTAL 0.4 mg/dL (0.2-1.0); BUN/CREATININE RATIO 22.2 (14-18); CREATININE 0.9 mg/dL (0.7-1.3); EST CRCL DRUG DOSING (CG) 56.45 mL/min; MAGNESIUM 1.8 mg/dL (1.8-2.4); POTASSIUM,K 4.3 mEq/L (3.5-5.1); PROTEIN TOTAL,TP 7.9 g/dl (6.4-8.2)
[2024-10-18 13:33] LABS: APPEARANCE,URINE CLOUDY (Clear); BILIRUBIN,URINE NEGATIVE (Negative); COLOR,URINE YELLOW (Yellow); GLUCOSE,URINE NEGATIVE (Negative); KETONES,URINE NEGATIVE (Negative); LEUKOCYTE ESTERASE,URINE TRACE (Negative); NITRITE,URINE NEGATIVE (Negative); OCCULT BLOOD,URINE NEGATIVE (Negative); PROTEIN,URINE NEGATIVE (Negative); UROBILINOGEN,URINE 0.2 (0.2-1.0)
[2024-10-18 14:12] LABS: BACTERIA,URINE MANY /hpf (FEW); RBC,URINE 0-5 /hpf (0-5); SQUAMOUS EPITHELIAL CELLS,UR 0-5 /hpf (0-5); WBC,URINE 0-5 /hpf (0-5)
[2024-10-18 14:13] LABS: MUCUS,URINE RARE /hpf (FEW); YEAST BUDDING,URINE MODERATE (NOT SEEN)
[2024-10-18 19:28] VITALS: BP 149/95; PULSE 85
== END 2024-10-18 15:00 | disposition home or self-care (01) ==
LOC: JD.ED 11:03
DX: T83.592A Infection and inflammatory reaction due to indwelling ureteral stent, initial encounter (principal); I10 Essential (primary) hypertension; E78.00 Pure hypercholesterolemia, unspecified; E03.9 Hypothyroidism, unspecified; Z79.899 Other long term (current) drug therapy; Z96.0 Presence of urogenital implants; Z79.890 Hormone replacement therapy; Z79.01 Long term (current) use of anticoagulants; Z88.1 Allergy status to other antibiotic agents; Z88.8 Allergy status to other drugs, medicaments and biological substances; Z88.0 Allergy status to penicillin; Z91.048 Other nonmedicinal substance allergy status
CPT/HCPCS: 36415; 80053; 81001; 83605; 83690; 83735; 85025; 86140; 87040; 96365; 96375; 99283; A9270; J2020; J2405; J7040; 99284

== ENCOUNTER 2024-10-26 17:35 | Inpatient (IN) | payer MEDICARE ==
[2024-10-26] MEDS ORDERED: Sodium Chloride 0.9% 10 ML Syringe FLUSH PRN (18:26)
[2024-10-26 19:02] LABS: HEMATOCRIT 39.7 % (42.0-52.0); MEAN CORPUSCULAR HEMOGLOBIN 31.7 pg (28.0-32.0); MEAN CORPUSCULAR HGB CONC 35.3 g/dl (32.0-36.0); MEAN PLATELET VOLUME 8.1 fl (9.4-12.4); NRBC ABSOLUTE 0.03 (0.00-0.02); NRBC PERCENT 0.4 % (0.0-0.2); PLATELET COUNT,PLT 496 K/mm3 (150-400); RED BLOOD CELL COUNT 4.41 M/mm3 (4.52-5.90); WHITE BLOOD CELL COUNT,WBC 8.28 K/mm3 (3.9-11.3)
[2024-10-26 19:15] LABS: BAND PERCENT MAN 0 % (0-10); BASOPHILS PERCENT MAN 0 (0.2-1.2); EOSINOPHILS PERCENT MAN 0 % (0.8-7.0); LYMPHOCYTES % ATYPICAL MANUAL 0 %; LYMPHOCYTES PERCENT MAN 22 % (20-40); MONOCYTES PERCENT MAN 4 % (2-10)
[2024-10-26 19:19] LABS: BURR CELLS FEW; OVALOCYTES 1+ SLIGHT; PLATELET COUNT ESTIMATE INCREASED; POIKILOCYTOSIS 1+ SLIGHT; TEARDROP CELLS FEW
[2024-10-26 19:20] LABS: INR 1.07; PROTHROMBIN TIME 11.3 SECONDS (9.7-12.0)
[2024-10-26 19:38] LABS: ALBUMIN 3.9 g/dl (3.4-5.0); ANION GAP 14.7 (5-15); BILIRUBIN TOTAL 0.3 mg/dL (0.2-1.0); BUN/CREATININE RATIO 29.2 (14-18); C-REACTIVE PROTEIN 2.01 mg/dL (<0.30); CALCIUM 10.2 mg/dL (8.5-10.1); CREATININE 1.3 mg/dL (0.7-1.3); EST CRCL DRUG DOSING (CG) 39.08 mL/min; POTASSIUM,K 4.7 mEq/L (3.5-5.1); PROTEIN TOTAL,TP 7.9 g/dl (6.4-8.2)
[2024-10-26 19:40] LABS: LACTIC ACID 1.9 mmol/L (0.4-2.0)
[2024-10-26] MEDS: Iopamidol 612 MG/ML 100 ML Bottle IVPUSH ONE (21:11)
[2024-10-26] MEDS: Sodium Chloride 0.9% 1,000 ML IV SCH (21:52)
[2024-10-26] MEDS: methylPREDNISolone Sodium Succinate 125 MG/2 ML SDV IVPUSH ONE (22:05)
[2024-10-26] MEDS: diphenhydrAMINE 50 MG/ML SDV IVPUSH ONE (22:05)
[2024-10-26 22:30] LABS: APPEARANCE,URINE CLEAR (Clear); BILIRUBIN,URINE NEGATIVE (Negative); COLOR,URINE YELLOW (Yellow); GLUCOSE,URINE NEGATIVE (Negative); KETONES,URINE NEGATIVE (Negative); LEUKOCYTE ESTERASE,URINE TRACE (Negative); NITRITE,URINE NEGATIVE (Negative); OCCULT BLOOD,URINE 2+ (Negative); PROTEIN,URINE NEGATIVE (Negative); UROBILINOGEN,URINE 0.2 (0.2-1.0)
[2024-10-26 22:47] LABS: BACTERIA,URINE FEW /hpf (FEW); MUCUS,URINE FEW /hpf (FEW); SQUAMOUS EPITHELIAL CELLS,UR 0-5 /hpf (0-5); WBC,URINE 0-5 /hpf (0-5)
[2024-10-27] MEDS: cefTRIAXone 1 GM Vial IVPUSH ONE (00:26)
[2024-10-27 05:48] LABS: HEMATOCRIT 36.4 % (42.0-52.0); HEMOGLOBIN 12.8 gm/dl (14.0-18.0); IMMATURE GRAN ABSOLUTE AUTO 0.02 K/mm3 (0.00-0.05); IMMATURE GRAN PERCENT AUTO 0.6 % (0.0-0.4); LYMPHOCYTES ABSOLUTE AUTO 0.4 K/mm3 (1.0-4.8); LYMPHOCYTES PERCENT AUTO 11.2 % (24.0-44.0); MEAN CORPUSCULAR HEMOGLOBIN 32.1 pg (28.0-32.0); MEAN CORPUSCULAR HGB CONC 35.2 g/dl (32.0-36.0); MEAN CORPUSCULAR VOLUME 91.2 fl (83.0-99.0); MEAN PLATELET VOLUME 8.5 fl (9.4-12.4); MONOCYTES PERCENT AUTO 0.9 % (0.0-8.0); NEUTROPHILS ABSOLUTE AUTO 3.1 K/mm3 (1.8-7.7); NEUTROPHILS PERCENT AUTO 87.3 % (41.0-71.0); NRBC ABSOLUTE 0.04 (0.00-0.02); NRBC PERCENT 1.1 % (0.0-0.2); PLATELET COUNT,PLT 485 K/mm3 (150-400); RED BLOOD CELL COUNT 3.99 M/mm3 (4.52-5.90); WHITE BLOOD CELL COUNT,WBC 3.49 K/mm3 (3.9-11.3)
[2024-10-27 05:51] LABS: ALBUMIN 3.5 g/dl (3.4-5.0); ANION GAP 14.9 (5-15); BILIRUBIN TOTAL 0.4 mg/dL (0.2-1.0); CALCIUM 9.4 mg/dL (8.5-10.1); EST CRCL DRUG DOSING (CG) 50.8 mL/min; MAGNESIUM 1.9 mg/dL (1.8-2.4); POTASSIUM,K 4.9 mEq/L (3.5-5.1)
[2024-10-27 06:40] LABS: SLIDE REVIEW ABNORMAL SMEAR
[2024-10-27] MEDS ORDERED: Acetaminophen 325 MG Tab PO PRN (16:06)
[2024-10-27] MEDS ORDERED: Ondansetron 4 MG/2 ML SDV IV PRN (16:06)
[2024-10-27] MEDS ORDERED: Ondansetron 4 MG Tab.DIS PO PRN (16:06)
[2024-10-27] MEDS: hydrOXYzine HCl 25 MG Tab PO PRN (22:27)
[2024-10-27] MEDS: traZODone 50 MG Tab PO PRN (22:27)
[2024-10-27] MEDS: cefTRIAXone 1 GM Vial IVPUSH SCH (22:29)
[2024-10-28 04:27] LABS: BASOPHILS ABSOLUTE AUTO 0.1 K/mm3 (0.0-0.2); BASOPHILS PERCENT AUTO 0.9 % (0.0-1.0); EOSINOPHILS PERCENT AUTO 0.4 % (0.0-6.0); HEMATOCRIT 34.7 % (42.0-52.0); IMMATURE GRAN ABSOLUTE AUTO 0.03 K/mm3 (0.00-0.05); IMMATURE GRAN PERCENT AUTO 0.3 % (0.0-0.4); LYMPHOCYTES ABSOLUTE AUTO 1.9 K/mm3 (1.0-4.8); LYMPHOCYTES PERCENT AUTO 21.2 % (24.0-44.0); MEAN CORPUSCULAR HEMOGLOBIN 31.9 pg (28.0-32.0); MEAN CORPUSCULAR HGB CONC 34.6 g/dl (32.0-36.0); MEAN CORPUSCULAR VOLUME 92.3 fl (83.0-99.0); MEAN PLATELET VOLUME 8.4 fl (9.4-12.4); MONOCYTES ABSOLUTE AUTO 0.8 K/mm3 (0.0-0.8); MONOCYTES PERCENT AUTO 8.5 % (0.0-8.0); NEUTROPHILS ABSOLUTE AUTO 6.1 K/mm3 (1.8-7.7); NEUTROPHILS PERCENT AUTO 68.7 % (41.0-71.0); NRBC ABSOLUTE 0.13 (0.00-0.02); NRBC PERCENT 1.5 % (0.0-0.2); PLATELET COUNT,PLT 411 K/mm3 (150-400); RED BLOOD CELL COUNT 3.76 M/mm3 (4.52-5.90); WHITE BLOOD CELL COUNT,WBC 8.93 K/mm3 (3.9-11.3)
[2024-10-28 04:55] LABS: ALBUMIN 3.4 g/dl (3.4-5.0); ANION GAP 13.6 (5-15); BILIRUBIN TOTAL 0.7 mg/dL (0.2-1.0); BUN/CREATININE RATIO 32.2 (14-18); C-REACTIVE PROTEIN 1.12 mg/dL (<0.30); CALCIUM 9.6 mg/dL (8.5-10.1); CREATININE 0.9 mg/dL (0.7-1.3); EST CRCL DRUG DOSING (CG) 56.01 mL/min; MAGNESIUM 1.8 mg/dL (1.8-2.4); POTASSIUM,K 4.6 mEq/L (3.5-5.1); PROTEIN TOTAL,TP 6.8 g/dl (6.4-8.2)
[2024-10-28] MEDS ORDERED: Acetaminophen/HYDROcodone 325-5 MG Tab PO PRN (07:31)
[2024-10-28] MEDS ORDERED: Ondansetron 4 MG Tab.DIS PO PRN (07:31)
[2024-10-28] MEDS ORDERED: Acetaminophen 325 MG Tab PO PRN (07:31)
[2024-10-28] MEDS ORDERED: Melatonin 3 MG Tab PO PRN (07:31)
[2024-10-28] MEDS: Ferrous Sulfate 324 MG Tab.EC PO SCH (08:42)
[2024-10-28] MEDS: Multivitamin Tab PO SCH (08:42)
[2024-10-28] MEDS: Apixaban 5 MG Tab PO SCH (08:42)
[2024-10-28] MEDS: Pantoprazole 40 MG Tab.CR PO SCH (08:42)
[2024-10-28] MEDS: Sodium Chloride 0.9% 1,000 ML IV ONE (09:53)
[2024-10-28] MEDS: Cyclobenzaprine 10 MG Tab PO SCH (11:57)
[2024-10-28 14:54] VITALS: BP 167/82; PULSE 83
[2024-10-28] MEDS ORDERED: Gabapentin 100 MG Cap PO SCH (21:00)
[2024-10-28] MEDS ORDERED: Carbidopa/Levodopa 25-250 MG Tab PO SCH (21:00)
[2024-10-28] MEDS ORDERED: traZODone 50 MG Tab PO SCH (21:00)
[2024-10-29] MEDS ORDERED: Levothyroxine 100 MCG Tab PO SCH (06:00)
== END 2024-10-28 14:45 | disposition other institution (70) | DRG 699 ==
LOC: JD.ED 17:35 → JD.MS 10-27 16:03
PROVIDERS: ADMIT Student in an Organized Health Care Education/Training Program; ATTEND Student in an Organized Health Care Education/Training Program
DX: T83.098A Other mechanical complication of other urinary catheter, initial encounter (principal); E87.1 Hypo-osmolality and hyponatremia; G82.20 Paraplegia, unspecified; S31.20XA Unspecified open wound of penis, initial encounter; Z66 Do not resuscitate; I10 Essential (primary) hypertension; E03.9 Hypothyroidism, unspecified; H26.9 Unspecified cataract; H54.7 Unspecified visual loss; E78.00 Pure hypercholesterolemia, unspecified; G89.29 Other chronic pain; E83.52 Hypercalcemia; Z96.619 Presence of unspecified artificial shoulder joint; G20.A1 Parkinson's disease without dyskinesia, without mention of fluctuations; F02.80 Dementia in other diseases classified elsewhere, unspecified severity, without behavioral disturbance, psychotic disturbance, mood disturbance, and anxiety; F15.90 Other stimulant use, unspecified, uncomplicated; Y73.2 Prosthetic and other implants, materials and accessory gastroenterology and urology devices associated with adverse incidents; Z87.01 Personal history of pneumonia (recurrent); Z87.440 Personal history of urinary (tract) infections; Z90.89 Acquired absence of other organs; Z88.1 Allergy status to other antibiotic agents; Z88.8 Allergy status to other drugs, medicaments and biological substances; Z91.048 Other nonmedicinal substance allergy status; Z87.81 Personal history of (healed) traumatic fracture; Z89.611 Acquired absence of right leg above knee; Z79.02 Long term (current) use of antithrombotics/antiplatelets; Z79.1 Long term (current) use of non-steroidal anti-inflammatories (NSAID); Z79.01 Long term (current) use of anticoagulants; Z79.899 Other long term (current) drug therapy; Z98.49 Cataract extraction status, unspecified eye; Z98.890 Other specified postprocedural states; Z87.448 Personal history of other diseases of urinary system; Z93.3 Colostomy status; Z86.718 Personal history of other venous thrombosis and embolism
CPT/HCPCS: 36415; 70450; 70450-26; 71045; 71045-26; 74177; 74177-26; 80053; 81001; 83605; 83735; 84100; 85007; 85025; 85027; 85610; 86140; 87040; 87428-QW; 93005; 96361; 96374; 96375; 97161-GP; 99285; 99285-25; A9270-GY; J0696; J1200; J2919; J7030; Q9967

== ENCOUNTER 2025-05-08 16:20 | Emergency (ER) | payer MEDICARE, OTHER ==
[2025-05-08 16:32] VITALS: PULSE 87
[2025-05-08 17:00] LABS: BASOPHILS ABSOLUTE AUTO 0.1 K/mm3 (0.0-0.2); BASOPHILS PERCENT AUTO 1.1 % (0.0-1.0); EOSINOPHILS ABSOLUTE AUTO 0.2 K/mm3 (0.0-0.4); EOSINOPHILS PERCENT AUTO 2.9 % (0.0-6.0); IMMATURE GRAN ABSOLUTE AUTO 0.03 K/mm3 (0.00-0.05); IMMATURE GRAN PERCENT AUTO 0.4 % (0.0-0.4); LYMPHOCYTES ABSOLUTE AUTO 2.2 K/mm3 (1.0-4.8); LYMPHOCYTES PERCENT AUTO 27.4 % (24.0-44.0); MEAN PLATELET VOLUME 8.7 fl (9.4-12.4); MONOCYTES ABSOLUTE AUTO 0.7 K/mm3 (0.0-0.8); MONOCYTES PERCENT AUTO 8.4 % (0.0-8.0); NEUTROPHILS ABSOLUTE AUTO 4.8 K/mm3 (1.8-7.7); NEUTROPHILS PERCENT AUTO 59.8 % (41.0-71.0); NRBC ABSOLUTE 0.00 (0.00-0.02); NRBC PERCENT 0.0 % (0.0-0.2); PLATELET COUNT,PLT 401 K/mm3 (150-400); RED BLOOD CELL COUNT 4.38 M/mm3 (4.52-5.90); WHITE BLOOD CELL COUNT,WBC 7.98 K/mm3 (3.9-11.3)
[2025-05-08 17:09] LABS: A/G RATIO 0.9 (1-2); ALANINE AMINOTRANSFERASE,ALT 68 U/L (16-63); ASPARTATE AMNIOTRANSFERASE,AST 26 U/L (15-37); BILIRUBIN TOTAL 0.4 mg/dL (0.2-1.0); BLOOD UREA NITROGEN,BUN 38 mg/dL (7-18); CARBON DIOXIDE,CO2 30 mEq/L (21-32); CHLORIDE,CL 100 mEq/L (98-107); CREATINE KINASE,CK 32 U/L (39-308); CREATININE 1.4 mg/dL (0.7-1.3); ESTIMATED GFR 51 mL/min (>60); GLUCOSE RANDOM 83 mg/dL (70-99); POTASSIUM,K 4.0 mEq/L (3.5-5.1); PROTEIN TOTAL,TP 6.9 g/dl (6.4-8.2); SODIUM,NA 137 mEq/L (136-145)
[2025-05-08 17:35] LABS: APPEARANCE,URINE CLOUDY (Clear); GLUCOSE,URINE NEGATIVE (Negative); OCCULT BLOOD,URINE 2+ (Negative)
[2025-05-08 18:06] LABS: EPITHELIAL CELLS,URINE 20-30 /hpf (0-5)
[2025-05-08 18:08] LABS: TRIPLE PHOSPHATE CRYSTALS,UR MODERATE /hpf
[2025-05-08 19:09] VITALS: BP 154/88
== END 2025-05-08 19:05 | disposition home or self-care (01) ==
LOC: JD.ED 16:20
DX: R51.9 Headache, unspecified (principal); H53.8 Other visual disturbances; N28.9 Disorder of kidney and ureter, unspecified; E78.00 Pure hypercholesterolemia, unspecified; I10 Essential (primary) hypertension; E03.9 Hypothyroidism, unspecified; Z88.0 Allergy status to penicillin; Z91.018 Allergy to other foods; Z91.041 Radiographic dye allergy status; Z79.899 Other long term (current) drug therapy; Z79.01 Long term (current) use of anticoagulants; Z79.890 Hormone replacement therapy; Z87.891 Personal history of nicotine dependence
CPT/HCPCS: 36415; 70450; 80053; 81001; 82550; 83735; 85025; 87086; 96360; 99285; J7030; 99283

== ENCOUNTER 2025-06-09 17:05 | Emergency (ER) | payer MEDICARE, OTHER ==
[2025-06-09 20:01] LABS: BASOPHILS ABSOLUTE AUTO 0.1 K/mm3 (0.0-0.2); BASOPHILS PERCENT AUTO 1.1 % (0.0-1.0); EOSINOPHILS ABSOLUTE AUTO 0.2 K/mm3 (0.0-0.4); EOSINOPHILS PERCENT AUTO 2.9 % (0.0-6.0); IMMATURE GRAN ABSOLUTE AUTO 0.02 K/mm3 (0.00-0.05); IMMATURE GRAN PERCENT AUTO 0.3 % (0.0-0.4); LYMPHOCYTES ABSOLUTE AUTO 2.2 K/mm3 (1.0-4.8); LYMPHOCYTES PERCENT AUTO 29.9 % (24.0-44.0); MEAN PLATELET VOLUME 8.1 fl (9.4-12.4); MONOCYTES ABSOLUTE AUTO 0.6 K/mm3 (0.0-0.8); MONOCYTES PERCENT AUTO 8.0 % (0.0-8.0); NEUTROPHILS ABSOLUTE AUTO 4.3 K/mm3 (1.8-7.7); NEUTROPHILS PERCENT AUTO 57.8 % (41.0-71.0); NRBC ABSOLUTE 0.00 (0.00-0.02); NRBC PERCENT 0.0 % (0.0-0.2); PLATELET COUNT,PLT 441 K/mm3 (150-400); RED BLOOD CELL COUNT 4.25 M/mm3 (4.52-5.90); WHITE BLOOD CELL COUNT,WBC 7.49 K/mm3 (3.9-11.3)
[2025-06-09 20:16] LABS: BLOOD UREA NITROGEN,BUN 14.0 mg/dL (7-18); CARBON DIOXIDE,CO2 29.0 mEq/L (21-32); CHLORIDE,CL 94.0 mEq/L (98-107); CREATININE 0.7 mg/dL (0.7-1.3); EST CRCL DRUG DOSING (CG) 71.37 mL/min; ESTIMATED GFR 94.0 mL/min (>60); GLUCOSE RANDOM 99.0 mg/dL (70-99); POTASSIUM,K 4.4 mEq/L (3.5-5.1); SODIUM,NA 131.0 mEq/L (136-145)
[2025-06-09 20:30] LABS: APPEARANCE,URINE CLOUDY (Clear); GLUCOSE,URINE NEGATIVE (Negative); OCCULT BLOOD,URINE TRACE-INTACT (Negative)
[2025-06-09] MEDS: cefTRIAXone 1 GM, Lidocaine 1% 2.1 ML IM SCH (21:43)
[2025-06-09 23:09] VITALS: BP 125/78; PULSE 88
== END 2025-06-09 22:45 ==
LOC: JD.ED 17:05
DX: T83.511A Infection and inflammatory reaction due to indwelling urethral catheter, initial encounter (principal); I10 Essential (primary) hypertension; E03.9 Hypothyroidism, unspecified; Z79.899 Other long term (current) drug therapy; Z79.890 Hormone replacement therapy; Z79.01 Long term (current) use of anticoagulants; Z88.1 Allergy status to other antibiotic agents; Z88.8 Allergy status to other drugs, medicaments and biological substances
CPT/HCPCS: 36415; 80048; 81001; 85025; 87086; 96372; 99283; J0696; J2003